=== PATIENT | male | born 1945 | race African-American/Black ===

== ENCOUNTER 2020-09-15 17:37 | Emergency (ER) | payer MEDICARE, MEDICAID, SELFPAY ==
--- NOTE | ~2020-09-15 | CT_ITS ---
EXAMINATION: CT brain wo con DATE: 09/15/2020 19:04 INDICATION: Altered mental status. Confusion. TECHNIQUE: Computed tomography (CT) of the head was performed without intravenous contrast. The mA wa s adjusted according to patient size. Iterative reconstruction technique was employed. The dose-lengt h product was 1362.00 mGy-cm. COMPARISON: Head CT 09/15/2019 FINDINGS: Motion artifact is noted. There are old infarcts in the bilateral thalami and left basal ga nglia. There are scattered areas of low attenuation in the cerebral white matter. There is no intracr anial hemorrhage, acute infarction, or abnormal intracranial mass lesion. The ventricles are normal i n size. The orbits are normal. There is mild mucosal thickening in the ethmoid sinuses. The mastoid a ir cells are normal. IMPRESSION: 1. 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 2. Stable extensive nonspecific cerebral white matter disease, which likely represents chronic small vessel ischemic disease. Reviewed, dictated and finalized at location A. RAISER IMPRESSION: 1. 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 2. Stable extensive nonspecific cerebral white matter disease, which likely rep resents chronic small vessel ischemic disease.
--- NOTE | ~2020-09-15 | XR_ITS ---
EXAMINATION: XR chest 2V DATE: 09/15/2020 19:11 INDICATION: Fever. Transient alteration of awareness. TECHNIQUE: Frontal and lateral views of the chest were obtained on 3 radiographs. COMPARISON: Chest single view 09/15/2019 FINDINGS: There is worsened elevation of right hemidiaphragm. No pneumonia, pleural effusion, or pneu mothorax. The heart size is normal. There are changes of anterior and posterior fusion procedures in cervical spine. IMPRESSION: 1. Worsened elevation of right hemidiaphragm. Reviewed, dictated and finalized at location A. COVERS TRIMMER
--- NOTE | ~2020-09-15 | CT_ITS ---
EXAMINATION: CT abdomen pelvis wo con DATE: 09/15/2020 20:44 INDICATION: Loss of appetite. TECHNIQUE: Computed tomography (CT) of the abdomen and pelvis was performed without intravenous contr ast. Automated exposure control and iterative reconstruction technique were employed. The dose-length product was 805.60 mGy-cm. COMPARISON: None. FINDINGS: The visualized portions of the lung bases demonstrate mild atelectasis and chronic lung dis ease. No pleural effusion. The heart size is normal. There are coronary artery calcifications. No per icardial effusion. Calcified right hilar lymph nodes are consistent with old granulomatous disease. T he liver, spleen, gallbladder, pancreas, adrenal glands, and kidneys are normal. There is no urolithi asis. Stool distends the rectum. There is diverticulosis of the colon without evidence of diverticuli tis. There is a moderate volume of stool in the colon. The appendix is normal. There is mild bilatera l gynecomastia. There are no pathologically enlarged lymph nodes. There is no free intraperitoneal fl uid. There is mild thoracolumbar spondylosis. IMPRESSION: 1. Stool distends the rectum. Reviewed, dictated and finalized at location A. RVISOR PIG MACHINE
[2020-09-15 17:54] VITALS: BP 146/98; PULSE 117; RESP 18; TEMP 37.6; O2SAT 100
--- NOTE | 2020-09-15 18:05 | ECG_ITS ---
Measurements Intervals [place] Rate: 102 P: -9 NE: 156 QRS: -28 QRSD: 82 T: 2 QT: 337 QTc: 441 Interpretive Statements SINUS TACHYCARDIA ANTERIOR INFARCT, AGE INDETERMINATE INFERIOR INFARCT, AGE INDETERMINATE BASELINE ARTIFACT- I, II, III, AVR, AVF, V3 ABNORMAL ECG Electronically Signed On 09-15-2020 20:04:40 FLIGHT ENGINEER HELICOPTER by Loyd Albarran D.O.
--- NOTE | 2020-09-15 18:05 | ED.AMS ---
HPI - Altered Mental Status General Chief Complaint: Altered Mental Status Stated Complaint: AMS Time Seen by Provider: 09/15/20 17:46 Source: EMS Mode of arrival: EMS Limitations: dementia History of Present Illness HPI narrative: Patient is a 75-year-old male with a history of dementia who presents for evaluation of worsened mentation from baseline. Patient comes from [facility] where the nighttime nurse felt that he was more confused from baseline. Patient is typically alert and oriented to person and place, tonight he was not even oriented to person. Unknown if the patient was altered like this for dayshift team per the EMS crew. Patient was transported to our facility, basically repeating anything the EMS crew said that the patient. He cannot provide any history. Patient currently is awake, alert and oriented to person, place in the room. He can identify the month, the year, that he is in [facility]. He can state his name. No focal deficits on exam. Related Data Home Medications Medication Instructions Recorded Confirmed Artificial Tears (PF) 1 drp OPHTHALMIC (EYE) Q6H PRN 09/15/19 09/15/19 acetaminophen 325 mg PO Q6H PRN 09/15/19 09/15/19 amlodipine 5 mg PO DAILY 09/15/19 09/15/19 aspirin 81 mg PO DAILY 09/15/19 09/15/19 glipizide 5 mg PO DAILY 09/15/19 09/15/19 ibuprofen 600 mg PO TID PRN 09/15/19 09/15/19 lisinopril 20 mg PO DAILY 09/15/19 09/15/19 lorazepam 1 mg PO DAILY 09/15/19 09/15/19 metoprolol succinate 50 mg PO DAILY 09/15/19 09/15/19 rosuvastatin 10 mg PO DAILY 09/15/19 09/15/19 sertraline 50 mg PO DAILY 09/15/19 09/15/19 trazodone 75 mg PO QPM 09/15/19 09/15/19 cholecalciferol (vitamin D3) 1,250 mcg PO WEEKLY 09/15/20 Allergies Allergy/AdvReac Type Severity Reaction Status Date / Time Iodine and Iodide Containing Allergy Unknown Unknown Verified 09/15/20 18:34 Produc Sulfa (Sulfonamide Allergy Unknown Unknown Verified 09/15/20 18:34 Antibiotics) atorvastatin [From Lipitor] Allergy Unknown Verified 09/15/20 18:34 shellfish derived Allergy Unknown Verified 09/15/20 18:34 simvastatin Allergy Unknown Verified 09/15/20 18:34 IV Dye Allergy Unknown Uncoded 09/15/19 00:08 Review of Systems Review of Systems: ROS unobtainable: Yes unobtainable due to mental status PMFSH Past Medical History Medical History (Updated 09/15/20 @ 21:04 by Hermelinda Bowman MD) Depression Diabetes HLD (hyperlipidemia) HTN (hypertension) TIA (transient ischemic attack) Family History Family History (Updated 09/15/19 @ 04:47 by Amy White RN) Other Unknown family medical history Social History Social History Smoking status: Unknown if ever smoked Alcohol intake: unknown Substance use: unknown Substance use type: unknown Gender identity (if verbalized by the patient): Male Spiritual care concerns: No Exam Narrative: Exam Narrative: GENERAL: Awake, alert HEAD: Normocephalic, atraumatic. EYES: PERRLA and EOMI. ENT: Nares clear, no rhinorrhea or epistaxis. Mucous membranes moist. NECK: Supple. CHEST: No respiratory distress, breathing even and non labored HEART: Regular rate, sinus rhythm ABDOMEN:Non distended, non tender EXTREMITIES: Normal range of motion. No edema. SKIN: Warm, dry, no rash. NEURO:No focal deficits. Alert and oriented x2 which is the patient's baseline. EOMs intact without nystagmus. No facial droop/asymmetry noted bilaterally. Grimace intact. Intact sensation in face. Hearing intact bilaterally. Shoulder shrug intact. Strength 5/5 bilateral upper extremities. Strength 5/5 bilateral lower extremities. Reflexes 2+ patellar. Ambulatory exam deferred. Course Vital Signs Vital signs: Vital Signs Temperature 37.6 C 09/15/20 17:54 Pulse Rate 117 H 09/15/20 17:54 Respiratory Rate 18 09/15/20 17:54 Blood Pressure 146/98 H 09/15/20 17:54 Pulse Oximetry 100 09/15/20
[2020-09-15 18:26] LABS: Basophils Percent Auto 0.2 % (0.2-1.2); Eosinophils Absolute Auto 0.1 K/mm3 (0-0.3); Eosinophils Percent Auto 0.6 % (0-4.4); Hematocrit 39.5 % (42.0-52.0); Hemoglobin 13.1 g/dL (14.0-18.0); Immature Granulocyte Absolute 0.02 K/mm3 (0.00-0.031); Immature Granulocyte Percent A 0.2 % (0-0.5); Lymphocytes Absolute Auto 2.45 K/mm3 (0.9-3.2); Mean Corpuscular HGB Conc 33.2 g/dl (32-36); Mean Corpuscular Hemoglobin 28.2 pg (26-34); Mean Corpuscular Volume 85.1 fl (80-100); Mean Platelet Volume 10.2 fl (7.4-10.4); Neutrophils Absolute Auto 5.6 K/mm3 (1.3-6.7); Platelet Count Result 211 k/mm3 (150-375); Red Blood Count 4.64 M/mm3 (4.6-6.20); Red Cell Distribution Width 13.6 % (11.5-14.5); White Blood Count 9.1 K/mm3 (4.5-10.0)
[2020-09-15] MEDS: SODIUM CHLORIDE 0.9% IV 1,000 ML 999 ML IV CONT (18:26)
[2020-09-15 18:36] LABS: INR 1.1; Lactic Acid Reflex 1.9 mmol/L (0.7-2.1); Prothrombin Time 14.3 Seconds (11.1-14.7)
[2020-09-15 18:37] LABS: Ammonia < 9 umol/L (9-30); Partial Thromboplastin Time 27.3 SECONDS (22.3-36.8)
[2020-09-15 18:38] LABS: Alveolar/Arterial O2 Gradient 40.6 mmHg; Base Excess ABG 0.3 mEq/l (+/-2.0); Fractional Inspired Oxygen 21 %; HCO3 ABG 24.9 mEq/l (22.0-26.0); Oxygen Content ABG 17.3 %vol (16.0-22.0); Oxygen Saturation ABG 91.4 % (95.0-100.0); PCO2 ABG 40.5 mmHg (35.0-45.0); PO2 ABG 60.6 mmHg (80.0-100.0); PO2 FiO2 Ratio Arterial Blood 2.89 %; Total Hemoglobin 13.5 g/dL (12.0-18.0); pH ABG 7.407 (7.350-7.450)
[2020-09-15 18:39] LABS: Device ROOM AIR; Site Drawn LEFT BRACHIAL
[2020-09-15 19:04] LABS: Alanine Aminotransferase 19 U/L (4-50); Albumin Level 4.2 g/dL (3.5-5.1); Alkaline Phosphatase 59 U/L (38-126); Anion Gap 10 mmol/L (8-16); Aspartate Amino Transferase 46 U/L (17-59); Bilirubin,Total 0.8 mg/dL (0.2-1.3); Blood Urea Nitrogen 19 mg/dL (9-20); Calcium 9.6 mg/dL (8.4-10.2); Carbon Dioxide 26 mmol/L (22-30); Chloride 104 mmol/L (98-107); Estimated CRCL calculation 51 ml/min; Estimated Glomerular Filt Rate > 60; Glucose 215 mg/dL (75-110); Potassium 4.2 mmol/L (3.4-5.0); Sodium 140 mmol/L (137-145)
[2020-09-15 19:10] LABS: Troponin I < 0.012 ng/mL (0.000-0.034)
[2020-09-15 19:35] VITALS: BP 139/92; PULSE 110; O2SAT 100
[2020-09-15 19:37] LABS: Add Urine Microscopic? YES; Appearance Urine Clear (Clear); Bilirubin Urine Negative (Negative); Blood Urine 3+ (Negative); Color Urine Yellow (Yellow); Glucose Urine UA Negative (Negative); Ketones Urine Trace mg/dL (Negative); Leukocyte Esterase Ur Trace LEU/UL (Negative); Nitrate Urine Negative (Negative); Protein Urine 1+ mg/dL (Negative); RBC Urine >75 /hpf (0-2); Specific Grav Ur 1.025 (1.001-1.035); Squamous Epithelial Cell Urine Rare /hpf (Few)
[2020-09-15 19:54] LABS: Amphetamine Screen Urine Negative (Negative); Barbiturate Screen Urine Negative (Negative); Benzodiazepines Screen Urine Negative (Negative); Cannabinoid Screen Urine Negative (Negative); Cocaine Screen Urine Negative (Negative); Methadone Screen Urine Negative (Negative); Opiate Screen Urine Negative (Negative); Phencyclidine Screen Urine Negative (Negative)
[2020-09-15 20:30] VITALS: BP 126/91; PULSE 101
--- NOTE | 2020-09-15 22:58 | PC.NURSE ---
multiple attempts to call report to anabel
[2020-09-15 23:13] VITALS: BP 139/95; PULSE 82; RESP 19; O2SAT 99
[2020-09-16 00:45] VITALS: BP 128/93; PULSE 64; RESP 15; O2SAT 93
[2020-09-16 02:30] VITALS: BP 137/94; PULSE 71; RESP 16; O2SAT 99
== END 2020-09-16 02:33 ==
PROVIDERS: Emergency Provider Emergency Medicine; PCP Internal Medicine
DX: R63.8 Other symptoms and signs concerning food and fluid intake (principal); K59.01 Slow transit constipation; E11.9 Type 2 diabetes mellitus without complications; E78.5 Hyperlipidemia, unspecified; I10 Essential (primary) hypertension; Z86.73 Personal history of transient ischemic attack (TIA), and cerebral infarction without residual deficits; F32.9 Major depressive disorder, single episode, unspecified; Z79.84 Long term (current) use of oral hypoglycemic drugs; Z79.82 Long term (current) use of aspirin; R00.0 Tachycardia, unspecified; R94.31 Abnormal electrocardiogram [ECG] [EKG]; R90.82 White matter disease, unspecified; F03.90 Unspecified dementia, unspecified severity, without behavioral disturbance, psychotic disturbance, mood disturbance, and anxiety; Z79.899 Other long term (current) drug therapy; R31.9 Hematuria, unspecified
CPT/HCPCS: 36415; 36600; 51701; 70450; 71046; 74176; 80053; 80307; 81001; 82140; 82805; 83605; 84443; 84484; 85025; 85610; 85730; 87040; 93005; 99284; J7030

== ENCOUNTER 2020-10-29 16:11 | Observation (INO) | payer MEDICARE, MEDICAID, SELFPAY ==
[2020-10-29] VITALS (23 sets, daily range): BP systolic 115–137; BP diastolic 64–88; PULSE 54–97; RESP 13–24; TEMP 36.7–37.6; O2SAT 98–100; BMI 20.6
--- NOTE | ~2020-10-29 | CT_ITS ---
EXAMINATION: CT brain wo con DATE: 10/29/2020 19:41 INDICATION: Confusion. TECHNIQUE: Computed tomography (CT) of the head was performed without intravenous contrast. The mA wa s adjusted according to patient size. Iterative reconstruction technique was employed. The dose-lengt h product was 908.00 mGy-cm. COMPARISON: Head CT 09/15/2020 FINDINGS: Motion artifact is noted. There are old lacunar infarcts in the bilateral basal ganglia and thalami. There are scattered areas of low attenuation in the cerebral white matter. There is no intr acranial hemorrhage, acute infarction, or abnormal intracranial mass lesion. The ventricles are crow l in size. There is mild mucosal thickening in the ethmoid sinuses. The mastoid air cells are normal. The orbits are normal. IMPRESSION: 1. Old lacunar infarcts in the bilateral basal ganglia and thalami. 2. Stable extensive nonspecific cerebral white matter disease, which likely represents chronic small vessel ischemic disease. Reviewed, dictated and finalized at location A. ILE STYLIST IMPRESSION: 1. Old lacunar infarcts in the bilateral basal ganglia and thalami. 2. Stable extensive nonspecific cerebral white matter disease, which likely rep resents chronic small vessel ischemic disease.
--- NOTE | ~2020-10-29 | XR_ITS ---
EXAMINATION: XR chest 1V portable DATE: 10/29/2020 17:31 INDICATION: Transient alteration of awareness. COVID-19 positive. TECHNIQUE: A single frontal view of the chest was obtained. COMPARISON: Chest 2 views 09/15/2020, CT abdomen and pelvis 09/15/2020 FINDINGS: The lung volumes are small. There is chronic mild relative elevation of right hemidiaphragm . No pneumonia, pleural effusion, or pneumothorax. The heart size is normal. There are changes of ant erior and posterior fusion procedures in cervical spine. IMPRESSION: 1. No acute cardiopulmonary disease. Reviewed, dictated and finalized at location A. SPINNER
--- NOTE | ~2020-10-29 | NM_ITS ---
EXAMINATION: NM pulmonary perfusion EXAM DATE: 10/30/2020 11:52 INDICATION: COVID pneumonia. Transient alteration of awareness. TECHNIQUE: A perfusion lung scan was performed. The patient was injected with 4.8 mCi technetium 99m MAA and imaged. Modified PIOPED 2 criteria used for interpretation of perfusion without ventilation study (recent chest x-ray instead for comparison). Correlation is made to chest x-ray 10/29/2020. FINDINGS: Minimally heterogeneous perfusion without focal segmental defects. Low probability pulmonar y embolism. IMPRESSION: Low probability pulmonary embolus. Reviewed, dictated and finalized at location B. SINKER
--- NOTE | 2020-10-29 16:21 | ECG_ITS ---
Measurements Intervals [place] Rate: 88 P: 21 [place]: 172 QRS: -47 QRSD: 73 T: 1 QT: 329 QTc: 398 Interpretive Statements SINUS RHYTHM CONSIDER ANTERIOR INFARCT, AGE INDETERMINATE INFERIOR INFARCT, AGE INDETERMINATE BASELINE ARTIFACT- I, II, AVR, AVL, AVF, V1-V6 ABNORMAL ECG Electronically Signed On 10-29-2020 16:27:57 POWER PLANT ENGINEER by Loyd Albarran D.O.
[2020-10-29 16:39] LABS: Basophils Percent Auto 0.4 % (0.2-1.2); Hematocrit 39.5 % (42.0-52.0); Hemoglobin 12.9 g/dL (14.0-18.0); Immature Granulocyte Absolute 0.01 K/mm3 (0.00-0.031); Immature Granulocyte Percent A 0.2 % (0-0.5); Lymphocytes Absolute Auto 2.13 K/mm3 (0.9-3.2); Mean Corpuscular HGB Conc 32.7 g/dl (32-36); Mean Corpuscular Hemoglobin 27.4 pg (26-34); Mean Platelet Volume 9.9 fl (7.4-10.4); Monocytes Absolute Auto 0.8 K/mm3 (0.1-0.6); Monocytes Percent Auto 14.8 % (2.6-8.5); Neutrophils Absolute Auto 2.6 K/mm3 (1.3-6.7); Neutrophils Percent Auto 46.6 % (45.5-73.1); Platelet Count Result 170 k/mm3 (150-375); Red Cell Distribution Width 13.8 % (11.5-14.5); White Blood Count 5.6 K/mm3 (4.5-10.0)
--- NOTE | 2020-10-29 16:43 | ED.URI ---
HPI - URI/Sore Throat General Chief Complaint: Upper Respiratory Infection Stated Complaint: covid + 1.9, low RA pul ox Time Seen by Provider: 10/29/20 16:16 Source: EMS, RN notes reviewed and old records reviewed Mode of arrival: EMS Limitations: clinical condition History of Present Illness HPI Narrative: Patient is 75-year-old -[place] diabetic male who presents from residential for hypoxemia diagnosed with Covid positive test in the last day patient is nonverbal on arrival does not shake his head patient with history of dementia and confusion at baseline patient on exam will not follow commands does not answer questions does shake his head yes and no unable to obtain history from the patient Related Data Home Medications Medication Instructions Recorded Confirmed Artificial Tears (PF) 1 drp OPHTHALMIC (EYE) Q6H PRN 09/15/19 10/29/20 acetaminophen 325 mg PO Q6H PRN 09/15/19 10/29/20 amlodipine 5 mg PO DAILY 09/15/19 10/29/20 aspirin 81 mg PO DAILY 09/15/19 10/29/20 glipizide 5 mg PO DAILY 09/15/19 10/29/20 ibuprofen 600 mg PO TID PRN 09/15/19 10/29/20 lisinopril 20 mg PO DAILY 09/15/19 10/29/20 lorazepam 1 mg PO DAILY 09/15/19 10/29/20 metoprolol succinate 50 mg PO DAILY 09/15/19 10/29/20 rosuvastatin 10 mg PO DAILY 09/15/19 10/29/20 sertraline 50 mg PO DAILY 09/15/19 10/29/20 trazodone 75 mg PO QPM 09/15/19 10/29/20 cholecalciferol (vitamin D3) 1,250 mcg PO WEEKLY 09/15/20 10/29/20 Allergies Allergy/AdvReac Type Severity Reaction Status Date / Time Iodine and Iodide Containing Allergy Unknown Unknown Verified 10/29/20 16:40 Produc Sulfa (Sulfonamide Allergy Unknown Unknown Verified 10/29/20 16:40 Antibiotics) atorvastatin [From Lipitor] Allergy Unknown Verified 10/29/20 16:40 shellfish derived Allergy Unknown Verified 10/29/20 16:40 simvastatin Allergy Unknown Verified 10/29/20 16:40 IV Dye Allergy Unknown Uncoded 10/29/20 16:40 Review of Systems Review of Systems: ROS unobtainable: Yes unobtainable due to medical condition PMFSH Past Medical History Medical History (Updated 10/29/20 @ 19:08 by Stanton Murillo PA-C) Depression Diabetes HLD (hyperlipidemia) HTN (hypertension) TIA (transient ischemic attack) Family History Family History (Updated 09/15/19 @ 04:47 by Amy White RN) Other Unknown family medical history Social History Social History Smoking status: Unknown if ever smoked Alcohol intake: unknown Substance use: unknown Substance use type: unknown Gender identity (if verbalized by the patient): Male Spiritual care concerns: No Exam Narrative: Exam Narrative: GENERAL: Ill-appearing, well-nourished, and in no acute distress. HEAD: Normocephalic, atraumatic. EYES: PERRLA and EOMI. ENT: Nares clear, no rhinorrhea or epistaxis. Mucous membranes moist. CHEST: Diminished on auscultation. No respiratory distress. Coarse breath sounds in the lung roldan HEART: Regular rate and rhythm. No murmur heard. Normal peripheral pulses. ABDOMEN: Soft, nontender, nondistended EXTREMITIES: Normal extremities on exam no edema SKIN: Warm, dry, no rash. NEURO: Patient nonverbal nods his head yes and no to questions does appear to be confused does not speak PSYCH: Normal mood and affect. Course Course Emergency Course: Patient evaluated in the emergency department for his hypoxemia seems to be tolerating well on his 2 L nasal cannula no pneumonia or other high risks findings in his evaluation patient will be brought into the hospital for further evaluation of his hypoxemia and recent COVID-19 diagnosis Consultations Consultation #1: Discussed case with hospitalist who is agreed to accept the patient Date: 10/29/20 Time: 19:07 Vital Signs Vital signs: Vital Signs Temperature 98.4 F 10/29/20 16:11 Pulse Rate 90 10/29/20 16:11 Respiratory Rate 22 H 10/29/20 16:11 Blood Pressure 129/79 10/29/20 1
[2020-10-29 16:47] LABS: Lactic Acid Reflex 1.5 mmol/L (0.7-2.1); Lipase 272 U/L (23-300)
[2020-10-29 16:48] LABS: Alveolar/Arterial O2 Gradient 67.2 mmHg; Carboxyhemoglobin 0.2 % THb (0-2.0); Fractional Inspired Oxygen 28 %; HCO3 ABG 25.3 mEq/l (22.0-26.0); Methemoglobin ABG 0.3 %THb (0-1.5); Oxygen Content ABG 18.6 %vol (16.0-22.0); Oxygen Saturation ABG 96.7 % (95.0-100.0); Oxyhemoglobin 96.1 % THb (90.0-100.0); PCO2 ABG 39.5 mmHg (35.0-45.0); PO2 ABG 85.8 mmHg (80.0-100.0); PO2 FiO2 Ratio Arterial Blood 3.06 %; Reduced Hemoglobin 3.4 %THb (0-5.0); Total Hemoglobin 13.7 g/dL (12.0-18.0); pH ABG 7.425 (7.350-7.450)
[2020-10-29 16:48] LABS: Alanine Aminotransferase 19 U/L (4-50); Alkaline Phosphatase 49 U/L (38-126); Anion Gap 6 mmol/L (8-16); Aspartate Amino Transferase 36 U/L (17-59); Bilirubin,Total 0.4 mg/dL (0.2-1.3); Blood Urea Nitrogen 20 mg/dL (9-20); Calcium 8.7 mg/dL (8.4-10.2); Carbon Dioxide 31 mmol/L (22-30); Chloride 98 mmol/L (98-107); Estimated Glomerular Filt Rate > 60; Glucose 111 mg/dL (75-110); Potassium 4.5 mmol/L (3.4-5.0); Prothrombin Time 14.1 Seconds (11.1-14.7); Sodium 135 mmol/L (137-145)
[2020-10-29 16:49] LABS: Partial Thromboplastin Time 33.7 SECONDS (22.3-36.8)
[2020-10-29 16:49] LABS: Device NASAL CANNULA; Site Drawn LEFT BRACHIAL
[2020-10-29 16:56] LABS: CRP 2.4 mg/dL (<1.0)
[2020-10-29 17:20] LABS: Add Urine Microscopic? YES; Appearance Urine Clear (Clear); Bilirubin Urine Negative (Negative); Blood Urine 2+ (Negative); Color Urine Yellow (Yellow); Glucose Urine UA Negative (Negative); Ketones Urine Negative (Negative); Leukocyte Esterase Ur Negative LEU/UL (Negative); Mucus Urine Rare /lpf; Nitrate Urine Negative (Negative); Protein Urine 1+ mg/dL (Negative); RBC Urine 51-75 /hpf (0-2); Specific Grav Ur 1.024 (1.001-1.035); Squamous Epithelial Cell Urine Occasional /hpf (Few); Urobilinogen Urine Negative mg/dL (<2.0); WBC Urine 0-3 /hpf
[2020-10-29 19:01] LABS: D Dimer 1.28 ug/mL (<0.48)
[2020-10-29] MEDS: ENOXAPARIN 80 MG/0.8 ML SYRINGE 75 MG SUB-Q (19:58)
--- NOTE | 2020-10-29 20:16 | PC.NURSE ---
Patient's daughter calls to get update on her father. This nurse informs her that the patient is being admitted.
--- NOTE | 2020-10-29 21:15 | ADMGEN ---
AT 2030, this patient, Carroll Roy, was admitted to [address] [place] [address] Room 324-01 VIA STRETCHER FROM THE ED. Patient/family oriented to hospital policies and general routines including ID bracelet, bed and alarms, visiting hours, pain management, procedures, bathroom and other care routines, personal items, smoking policy, room service/diet, and visiting hours. PT IS NONVERBAL SHAKES HIS HEAD YES AND NO FOR QUESTIONS. Information on how to activate the Rapid Response Team has been discussed. Patient/Family are encouraged to report perceived risks to care and to ask questions if they do not understand what they are told or what they should do.
[2020-10-29] MEDS: LACTATED RINGERS 1,000 ML 75 ML IV CONT (21:35)
[2020-10-30] VITALS (9 sets, daily range): BP systolic 128–144; BP diastolic 69–92; PULSE 54–114; RESP 18–20; TEMP 36.6–37.7; O2SAT 95–100
[2020-10-30] MEDS: FAMOTIDINE 20 MG/2 ML VIAL IV PUSH ×3 (01:01→21:01)
[2020-10-30 01:10] LABS: Glucose Point of Care 104 (65-105)
[2020-10-30 06:44] LABS: Basophils Percent Auto 0.4 % (0.2-1.2); Hematocrit 40.6 % (42.0-52.0); Hemoglobin 13.2 g/dL (14.0-18.0); Immature Granulocyte Absolute 0.01 K/mm3 (0.00-0.031); Immature Granulocyte Percent A 0.2 % (0-0.5); Lymphocytes Absolute Auto 2.06 K/mm3 (0.9-3.2); Lymphocytes Percent Auto 39.1 % (18.3-44.2); Mean Corpuscular HGB Conc 32.5 g/dl (32-36); Mean Corpuscular Hemoglobin 27.8 pg (26-34); Mean Corpuscular Volume 85.5 fl (80-100); Mean Platelet Volume 10.6 fl (7.4-10.4); Monocytes Absolute Auto 0.9 K/mm3 (0.1-0.6); Monocytes Percent Auto 16.3 % (2.6-8.5); Neutrophils Absolute Auto 2.3 K/mm3 (1.3-6.7); Platelet Count Result 157 k/mm3 (150-375); Red Blood Count 4.75 M/mm3 (4.6-6.20); Red Cell Distribution Width 13.9 % (11.5-14.5); White Blood Count 5.3 K/mm3 (4.5-10.0)
[2020-10-30 07:11] LABS: Anion Gap 6 mmol/L (8-16); Blood Urea Nitrogen 18 mg/dL (9-20); Calcium 8.4 mg/dL (8.4-10.2); Carbon Dioxide 25 mmol/L (22-30); Chloride 103 mmol/L (98-107); Estimated CRCL calculation 50 ml/min; Estimated Glomerular Filt Rate > 60; Glucose 81 mg/dL (75-110); Potassium 4.5 mmol/L (3.4-5.0); Sodium 134 mmol/L (137-145)
[2020-10-30 08:28] LABS: Glucose Point of Care 87 (65-105)
[2020-10-30] MEDS: ENOXAPARIN 80 MG/0.8 ML SYRINGE 75 MG SUB-Q ×2 (10:36→21:01)
[2020-10-30 12:15] LABS: Glucose Point of Care 103 (65-105)
--- NOTE | 2020-10-30 14:45 | PM.IMHP ---
H&P: HPI History of Present Illness Date/Time: 10/30/20 14:45 Chief Complaint: HYpoxemia Narrative: Carroll Roy is a 75 year old male male from [facility] for hypoxemia diagnosed with Covid positive on oxygen doing well. Answering questions on admission was not able to do that. poor historian but pleasant and alert history of dementia. CT shows - Old lacunar infarcts in the bilateral basal ganglia and thalami. 2. Stable extensive nonspecific cerebral white matter disease, which likely represents chronic small vessel ischemic disease. CXR NL. Continue to watch for hypoxia today. Review of Systems Review of Systems: All systems reviewed & are unremarkable except as noted in HPI and below PMFSH Past Medical History Medical History Depression Diabetes HLD (hyperlipidemia) HTN (hypertension) TIA (transient ischemic attack) Family History Family History Other Unknown family medical history Social History Social History Smoking status: Unknown if ever smoked Alcohol intake: unknown Substance use: unknown Substance use type: unknown Gender identity (if verbalized by the patient): Male Spiritual care concerns: No Meds Home Medications and Allergies Home Medications Medication Instructions Recorded Confirmed Type Artificial Tears (PF) 1 drp OPHTHALMIC (EYE) Q6H PRN 09/15/19 10/30/20 History acetaminophen 325 mg PO Q6H PRN 09/15/19 10/30/20 History amlodipine 5 mg PO DAILY 09/15/19 10/30/20 History aspirin 81 mg PO DAILY 09/15/19 10/30/20 History glipizide 5 mg PO DAILY 09/15/19 10/30/20 History ibuprofen 600 mg PO TID PRN 09/15/19 10/30/20 History lisinopril 20 mg PO DAILY 09/15/19 10/30/20 History lorazepam 1 mg PO DAILY 09/15/19 10/30/20 History metoprolol succinate 50 mg PO DAILY 09/15/19 10/30/20 History rosuvastatin 10 mg PO DAILY 09/15/19 10/30/20 History sertraline 50 mg PO DAILY 09/15/19 10/30/20 History trazodone 75 mg PO QPM 09/15/19 10/30/20 History cholecalciferol (vitamin D3) 1,250 mcg PO WEEKLY 09/15/20 10/30/20 History Allergies Allergy/AdvReac Type Severity Reaction Status Date / Time Iodine and Iodide Containing Allergy Unknown Unknown Verified 10/29/20 21:17 Produc Sulfa (Sulfonamide Allergy Unknown Unknown Verified 10/29/20 21:17 Antibiotics) atorvastatin [From Lipitor] Allergy Unknown Verified 10/29/20 21:17 shellfish derived Allergy Unknown Verified 10/29/20 21:17 simvastatin Allergy Unknown Verified 10/29/20 21:17 IV Dye Allergy Unknown Uncoded 10/29/20 21:17 Vital Signs Vital Signs - 24 hr 10/29/20 16:11 10/29/20 16:40 10/29/20 16:45 Temperature 36.9 C Pulse Rate 90 87 93 Respiratory Rate 22 H 23 H 17 Blood Pressure 129/79 137/88 Pulse Oximetry 100 98 10/29/20 16:46 10/29/20 16:47 10/29/20 17:00 Temperature Pulse Rate 89 89 97 Respiratory Rate 24 H 18 22 H Blood Pressure 125/85 Pulse Oximetry 10/29/20 17:15 10/29/20 17:30 10/29/20 17:56 Temperature Pulse Rate 76 78 70 Respiratory Rate 18 18 16 Blood Pressure Pulse Oximetry 10/29/20 18:11 10/29/20 18:27 10/29/20 18:31 Temperature Pulse Rate 80 73 73 Respiratory Rate 16 13 17 Blood Pressure 121/68 Pulse Oximetry 100 99 99 10/29/20 18:32 10/29/20 18:45 10/29/20 18:48 Temperature Pulse Rate 69 71 65 Respiratory Rate 17 20 15 Blood Pressure 121/68 Pulse Oximetry 99 100 98 10/29/20 19:00 10/29/20 19:01 10/29/20 19:15 Temperature Pulse Rate 75 71 81 Respiratory Rate 18 14 18 Blood Pressure 115/64 Pulse Oximetry 99 99 98 10/29/20 19:39 10/29/20 19:45 10/29/20 19:46 Temperature Pulse Rate 78 76 96 Respiratory Rate 21 H 18 Blood Pressure Pulse Oximetry 98 100 10/29/20 20:17 10/29/20 20:10/30/20 00:00 Temperature 36.7
[2020-10-30] MEDS: traZODone HCL 25 MG TABLET 75 MG PO (17:20)
[2020-10-30 17:43] LABS: Glucose Point of Care 127 (65-105)
[2020-10-30] MEDS: ACETAMINOPHEN 325 MG TABLET PO (17:43)
[2020-10-30] MEDS: LACTATED RINGERS 1,000 ML 75 ML IV CONT (17:46)
[2020-10-31] VITALS (7 sets, daily range): BP systolic 111–145; BP diastolic 71–94; PULSE 73–96; RESP 18–20; TEMP 36.7–37.2; O2SAT 95–100
[2020-10-31 08:20] LABS: Glucose Point of Care 90 (65-105)
[2020-10-31] MEDS: SERTRALINE HCL 50 MG TABLET PO (09:20)
[2020-10-31] MEDS: amLODIPine BESYLATE 5 MG TABLET PO (09:20)
[2020-10-31] MEDS: ENOXAPARIN 80 MG/0.8 ML SYRINGE 75 MG SUB-Q (09:20)
[2020-10-31] MEDS: FAMOTIDINE 20 MG/2 ML VIAL IV PUSH (09:20)
[2020-10-31] MEDS: lisinopriL 20 MG TABLET PO (09:20)
[2020-10-31] MEDS: LORazepam (*CRX) 1 MG TABLET PO (09:20)
[2020-10-31] MEDS: ROSUVASTATIN 10 MG TABLET PO (09:20)
[2020-10-31] MEDS: METOPROLOL SUCCINATE EXT REL 50 MG TABCR PO (09:21)
[2020-10-31] MEDS: glipiZIDE 5 MG TABLET PO (09:21)
[2020-10-31] MEDS: ASPIRIN 81 MG CHEWABLE TABLET PO (09:22)
[2020-10-31] MEDS: LACTATED RINGERS 1,000 ML 75 ML IV CONT (10:37)
[2020-10-31] MEDS: DEXTROSE 50% 25 GM/50 ML SYRINGE IV PUSH (12:15)
[2020-10-31 12:35] LABS: Glucose Point of Care 65 (65-105)
[2020-10-31 12:42] LABS: Glucose Point of Care 268 (65-105)
--- NOTE | 2020-10-31 13:25 | PM.DS ---
DS: Admitting Diagnosis Admitting Diagnosis Admitting Diagnosis: HYPOXEMIA DS: Discharge Diagnosis Discharge Diagnosis (1) Hypoxemia: Code(s): R09.02 - Hypoxemia Status: Acute Assessment and Plan: Continue to watch. Continue oxygen prn. Cxr is clear no need for ABX. (2) COVID-19: Code(s): U07.1 - COVID-19 Status: Acute Assessment and Plan: Recent diagnosis (3) Altered mental status: Qualifiers: Altered mental status type: delirium Qualified Code(s): R41.0 - Disorientation, unspecified Code(s): R41.82 - Altered mental status, unspecified Status: Resolved Assessment and Plan: Resolving (4) Delirium due to general medical condition: Code(s): F05 - Delirium due to known physiological condition Status: Acute Assessment and Plan: Chronic history CT head reviewed, CXR reviewed, UA reviewed. (5) HTN (hypertension): Code(s): I10 - Essential (primary) hypertension Status: Acute Assessment and Plan: Continue home BP medications (6) Diabetes: Code(s): E11.9 - Type 2 diabetes mellitus without complications Status: Acute Assessment and Plan: Continue home medications, accuchecks, SSI DS: Summary Hospital Course Hospital Course: Carroll Roy is a 75 year old male male from [facility] for hypoxemia diagnosed with Covid positive on oxygen doing well. Answering questions on admission was not able to do that. poor historian but pleasant and alert history of dementia. CT shows - Old lacunar infarcts in the bilateral basal ganglia and thalami. 2. Stable extensive nonspecific cerebral white matter disease, which likely represents chronic small vessel ischemic disease. CXR NL. Pt did well weaned off oxygen stable to discharge. Minor case of covid. Time Spent with Patient Time attestation: Total time spent providing and/or coordinating discharge services:40 minutes on day of dischrage Exam Const: General: other (frail older man pleasant alert history of dementia ) HENMT: Head: normocephalic Eyes: General: appearance normal, both eyes and all related structures Pupils: Equal, round and reactive pupils present Neck: Neck: supple Chest: Chest palpation & inspection: normal inspection of the chest Resp: Effort & Inspection: normal respiratory effort Auscultation: clear to auscultation bilaterally Cardio: Jugular venous distension: no JVD Rhythm: regular rhythm Heart sounds: S1 normal heart sound present and S2 normal heart sound present GI: Inspection: normal to inspection Auscultation: normal bowel sounds : General: Yes no CVA tenderness Back/Spine/Pelvis: Back: no CVA tenderness Skin: General skin exam: normal color and dry skin Neuro: Cranial nerves: Yes CN's II-XII intact bilaterally and Yes Equal, round and reactive pupils present Cognition (Neuro): normal cognition Speech: normal speech Motor exam (neuro): 5/5 motor strength present throughout Extrem: General: normal to inspection Psych: Appearance: grossly normal Mental Status: mental status grossly normal DS: Data Data Completed and Pending Labs on day of discharge: Labs from last 24 hours 10/31/20 10/31/20 10/31/20 12:33 12:10 08:12 POC Capillary Glucose 268 H 65 90 10/30/20 17:24 POC Capillary Glucose 127 H Preliminary micro results at discharge 10/29/20 16:50 Blood Culture - Preliminary Blood 10/29/20 16:48 Blood Culture - Preliminary Blood Discharge Plan Discharge Attending physician on discharge: Aura Lynn Consulting providers: [facility] ; Stanton Murillo ; Timur Trejo ; Loyd Albarran ; Ilia Jones V. Discharging Clinician: Aura Lynn Anticipated Discharge Date/Time: 10/31/20 13:24 Patient Disposition: SNF Activity: as tolerated Diet: diabetic Patient Instructions: Droplet Precautions (GEN), COV
== END 2020-10-31 14:18 ==
LOC: ANHED 19:08 → ANH3MEDSUR 20:04
PROVIDERS: Emergency Medicine Emergency Medical Services; Admitting Provider Internal Medicine; Emergency Provider Emergency Medicine; Visit Provider Family Medicine
DX: R09.02 Hypoxemia (principal); U07.1 COVID-19; R41.82 Altered mental status, unspecified; F03.90 Unspecified dementia, unspecified severity, without behavioral disturbance, psychotic disturbance, mood disturbance, and anxiety; I10 Essential (primary) hypertension; E78.5 Hyperlipidemia, unspecified; E11.9 Type 2 diabetes mellitus without complications; F32.9 Major depressive disorder, single episode, unspecified; Z86.73 Personal history of transient ischemic attack (TIA), and cerebral infarction without residual deficits; Z79.82 Long term (current) use of aspirin; Z79.84 Long term (current) use of oral hypoglycemic drugs
CPT/HCPCS: 36415; 36600; 51701; 70450; 71045; 78580; 80048; 80053; 81001; 82375; 82805; 83050; 83605; 83690; 85025; 85380; 85610; 85730; 86140; 87040; 93005; 96361; 96372; 96374; 96375; 96376; 99285; A9270; A9540; G0378; J0131; J1650; J7120

== ENCOUNTER 2020-11-03 23:21 | Inpatient (IN) | payer MEDICARE, MEDICAID, SELFPAY ==
--- NOTE | ~2020-11-03 | XR_ITS ---
EXAMINATION: XR chest 1V portable DATE: 11/03/2020 23:55 INDICATION: Hypoxia TECHNIQUE: frontal view of the chest was obtained. COMPARISON: Chest radiograph dated 10/29/2020 FINDINGS: Again seen are small lung volumes, particularly on the right where there is chronic asymmetric elevat ion of the right hemidiaphragm. New subtle airspace opacities in the right mid to upper and left mid and lower lung zones. Pulmonary vascular congestion without annette pulmonary edema. No pleural effusio n or pneumothorax. Cardiomegaly. Instrumented anterior and posterior spinal fusion in a lower cervica l spine. IMPRESSION: 1. New subtle bilateral airspace opacities which could represent atelectasis and/or pneumonia. 2. Cardiomegaly with pulmonary vascular congestion. Reviewed, dictated and finalized at location A. S SUPERVISOR IMPRESSION: 1. New subtle bilateral airspace opacities which could represent atelectasis an d/or pneumonia. 2. Cardiomegaly with pulmonary vascular congestion.
--- NOTE | ~2020-11-03 | CT_ITS ---
EXAMINATION: CT brain wo con DATE: 11/04/2020 02:04 INDICATION: Altered mental status TECHNIQUE: Computed tomography (CT) of the head was performed without intravenous contrast. The dose- length product was 681.00 mGy-cm. Automated exposure control and iterative reconstruction technique w ere employed. COMPARISON: CT dated 10/29/2020 FINDINGS: Generalized atrophy. No acute intracranial hemorrhage, infarction, mass or mass effect. No ventriculomegaly or midline shift. There are scattered severe periventricular and subcortical white m atter changes, most likely related to small vessel ischemic disease (microangiopathy). The limited by motion artifact. No depressed skull fractures. Paranasal sinuses are unremarkable. There is intracra nial atherosclerosis. IMPRESSION: 1. No acute intracranial abnormality. 2: Chronic age-related findings. Reviewed, dictated and finalized at location A. ERN GATER
--- NOTE | ~2020-11-03 | CT_ITS ---
EXAMINATION: CT brain wo con DATE: 11/08/2020 08:23 INDICATION: Confusion. TECHNIQUE: Computed tomography (CT) of the head was performed without intravenous contrast. The mA wa s adjusted according to patient size. Iterative reconstruction technique was employed. The dose-lengt h product was 681.00 mGy-cm. COMPARISON: Head CT 11/04/2020 FINDINGS: Motion artifact is noted. There are scattered areas of low attenuation in the cerebral whit e matter. There are old infarcts in the bilateral thalami and basal ganglia. There is no intracranial hemorrhage, acute infarction, or abnormal intracranial mass lesion. The ventricles are normal in siz e. There is mild mucosal thickening in the ethmoid sinuses. The orbits are normal. The mastoid air ce lls are normal. IMPRESSION: 1. Motion artifact moderately decreases sensitivity and specificity for infarct. 2. 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 3. Stable extensive nonspecific cerebral white matter disease, which likely represents chronic small vessel ischemic disease. Reviewed, dictated and finalized at location B. OPERATOR IMPRESSION: 1. Motion artifact moderately decreases sensitivity and specificity for infarct . 2. 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 3. Stable extensive nonspecific cerebral white matter disease, which likely rep resents chronic small vessel ischemic disease.
--- NOTE | ~2020-11-03 | CT_ITS ---
EXAMINATION: CT chest wo con DATE: 11/05/2020 14:45 INDICATION: Covid pneumonia, hypoxia, risk for aspiration TECHNIQUE: Computed tomography (CT) of the chest was performed without intravenous contrast. Addition al 3D reconstructions utilizing coronal maximum intensity projection (MIP) were performed. Automated exposure control and iterative reconstruction technique were employed. The dose-length product was 29 4.56 mGy-cm. COMPARISON: Chest radiograph dated 11/03/2020 FINDINGS: Small lung volumes particularly on the right where there is chronic elevation of the right hemidiaphr agm. Patchy regions of groundglass opacity and more dense consolidation involving all lobes of both l ungs most prominent in the bilateral upper and left lower lobes. Pattern would be consistent with COV ID pneumonia. No septal line thickening to suggest pulmonary edema. No pleural effusion or pneumothor ax. Heart size is normal. No pericardial effusion. Atherosclerotic coronary artery calcifications. Ca lcified mediastinal lymph node consistent with old granulomatous disease. Bilateral gynecomastia. Vis ualized upper abdomen is unremarkable. Partially visualized anterior and posterior spinal fusion with anterior plate and screw and bilateral vertical meghan and lateral mass screw fixation at C6-C7. Partia lly visualized chronic thick-walled loculated fluid collection posterior to the lower cervical spine measuring up to 6.7 x 3.4 similar in maximal dimensions on the cephalad-most image. No appreciable pr ogression of osteolysis with cortical destruction involving portion of the posterior elements of C6-T 2. IMPRESSION: 1. Small lung volumes with patchy bilateral airspace disease with appearance most consistent with COV ID pneumonia. 2. Chronic posterior paraspinal fluid collection with stable appearance of posterior erosive changes from C6-T2. Given the nearly 3 years of stability would favor a seroma and chronic pressure erosions over abscess and osteomyelitis. Reviewed, dictated and finalized at location A. ICK FOLLOWER IMPRESSION: 1. Small lung volumes with patchy bilateral airspace disease with appearance mo st consistent with COVID pneumonia. 2. Chronic posterior paraspinal fluid collection with stable appearance of post erior erosive changes from C6-T2. Given the nearly 3 years of stability would f avor a seroma and chronic pressure erosions over abscess and osteomyelitis.
[2020-11-03 23:23] VITALS: BP 123/77; PULSE 110; RESP 20; TEMP 38.7; O2SAT 89
--- NOTE | 2020-11-03 23:25 | ECG_ITS ---
Measurements Intervals [place] Rate: 112 P: 4 [place]: 147 QRS: -44 QRSD: 82 T: -10 QT: 326 QTc: 447 Interpretive Statements SINUS TACHYCARDIA POOR R WAVE PROGRESSION, ANTERIOR LEADS INFERIOR INFARCT, AGE INDETERMINATE BASELINE ARTIFACT- I, II, III, AVR, AVF ABNORMAL ECG Electronically Signed On 11-04-2020 8:05:06 RESUME WRITER by Loyd Albarran D.O.
[2020-11-03 23:37] VITALS: O2SAT 93
--- NOTE | 2020-11-03 23:38 | PC.NURSE ---
pt now speaking to this RN. he states his name is matt and hes hurting everywhere. pt unable to rate his pain at this time.
[2020-11-03] MEDS: SODIUM CHLORIDE 0.9% IV 1,000 ML 999 ML IV CONT (23:43)
[2020-11-03 23:46] LABS: Hematocrit 42.7 % (42.0-52.0); Hemoglobin 14.1 g/dL (14.0-18.0); Immature Granulocyte Absolute 0.02 K/mm3 (0.00-0.031); Immature Granulocyte Percent A 0.3 % (0-0.5); Lymphocytes Absolute Auto 1.57 K/mm3 (0.9-3.2); Mean Corpuscular Hemoglobin 27.8 pg (26-34); Mean Corpuscular Volume 84.1 fl (80-100); Mean Platelet Volume 10.3 fl (7.4-10.4); Monocytes Absolute Auto 0.8 K/mm3 (0.1-0.6); Monocytes Percent Auto 14.1 % (2.6-8.5); Neutrophils Absolute Auto 3.4 K/mm3 (1.3-6.7); Neutrophils Percent Auto 58.6 % (45.5-73.1); Platelet Count Result 165 k/mm3 (150-375); Red Blood Count 5.08 M/mm3 (4.6-6.20); Red Cell Distribution Width 13.8 % (11.5-14.5); White Blood Count 5.8 K/mm3 (4.5-10.0)
--- NOTE | 2020-11-03 23:51 | PC.NURSE ---
getting xray at this time
[2020-11-03 23:57] LABS: INR 0.9; Prothrombin Time 12.8 Seconds (11.1-14.7)
[2020-11-03 23:58] LABS: Partial Thromboplastin Time 32.1 SECONDS (22.3-36.8)
[2020-11-04] VITALS (16 sets, daily range): BP systolic 119–137; BP diastolic 77–87; PULSE 91–122; RESP 14–20; TEMP 36.3–37.3; O2SAT 91–100
[2020-11-04] LABS: Lactic Acid Reflex 1.2 mmol/L (0.7-2.1)
[2020-11-04 00:02] LABS: Alanine Aminotransferase 49 U/L (4-50); Alkaline Phosphatase 54 U/L (38-126); Anion Gap 8 mmol/L (8-16); Aspartate Amino Transferase 91 U/L (17-59); Bilirubin,Total 0.7 mg/dL (0.2-1.3); Blood Urea Nitrogen 24 mg/dL (9-20); CRP 5.7 mg/dL (<1.0); Calcium 8.8 mg/dL (8.4-10.2); Carbon Dioxide 26 mmol/L (22-30); Chloride 102 mmol/L (98-107); Estimated Glomerular Filt Rate > 60; Glucose 145 mg/dL (75-110); Potassium 4.6 mmol/L (3.4-5.0); Sodium 136 mmol/L (137-145)
--- NOTE | 2020-11-04 00:03 | ED.SOB ---
HPI - SOB/Dyspnea General Chief Complaint: Shortness of Breath/Dyspnea Stated Complaint: low O2 sat, weakness, covid positive 10/29/20 Time Seen by Provider: 11/03/20 23:25 History of Present Illness HPI Narrative: 75 yo male w/ h/o dementia, DM, htn presents to the Ed for SOB. He was seen here for AMS and low O2 saturation on 10/29. He was diagnosed with COVID-19. Chest x-ray was negative. He was weened off of oxygen and discharged. [facility] he was noted to have saturation in the 70s. On arrival here it is in the mid 90s on 2 liters. He is oriented x1 at baseline. History limited by dementia. Related Data Home Medications Medication Instructions Recorded Confirmed Artificial Tears (PF) 1 drp OPHTHALMIC (EYE) Q6H PRN #0 09/15/19 10/31/20 acetaminophen 325 mg PO Q6H PRN #0 09/15/19 10/31/20 amlodipine 5 mg PO DAILY 09/15/19 10/30/20 aspirin 81 mg PO DAILY #0 09/15/19 10/30/20 glipizide 5 mg PO DAILY 09/15/19 10/30/20 ibuprofen 600 mg PO TID PRN #0 09/15/19 10/30/20 lisinopril 20 mg PO DAILY 09/15/19 10/30/20 lorazepam 1 mg PO DAILY 09/15/19 10/30/20 metoprolol succinate 50 mg PO DAILY 09/15/19 10/30/20 rosuvastatin 10 mg PO DAILY 09/15/19 10/30/20 sertraline 50 mg PO DAILY 09/15/19 10/30/20 trazodone 75 mg PO QPM 09/15/19 10/30/20 cholecalciferol (vitamin D3) 1,250 mcg PO WEEKLY 09/15/20 10/30/20 Allergies Allergy/AdvReac Type Severity Reaction Status Date / Time Iodine and Iodide Containing Allergy Unknown Unknown Verified 10/29/20 21:17 Produc Sulfa (Sulfonamide Allergy Unknown Unknown Verified 10/29/20 21:17 Antibiotics) atorvastatin [From Lipitor] Allergy Unknown Verified 10/29/20 21:17 shellfish derived Allergy Unknown Verified 10/29/20 21:17 simvastatin Allergy Unknown Verified 10/29/20 21:17 IV Dye Allergy Unknown Uncoded 10/29/20 21:17 Review of Systems Review of Systems: ROS unobtainable: Yes unobtainable due to mental status PMFSH Past Medical History Medical History Depression Diabetes HLD (hyperlipidemia) HTN (hypertension) TIA (transient ischemic attack) Family History Family History Other Unknown family medical history Social History Social History Smoking status: Unknown if ever smoked Alcohol intake: unknown Substance use: unknown Substance use type: unknown Gender identity (if verbalized by the patient): Male Spiritual care concerns: No Exam Const: General: no acute distress and alert Nutritional Appearance: well nourished HENMT: Mouth: Yes dry mucous membranes Eyes: Pupils: Equal, round and reactive pupils present Resp: Effort & Inspection: normal respiratory effort Auscultation: clear to auscultation bilaterally Cardio: Rate: tachycardic Rhythm: regular rhythm GI: GI Palp: Yes Soft to palpation and No Tenderness to palpation present (GI) Neuro: General: moves all extremities Other: Alert. Not answering questions or following commands. Extrem: General: normal to inspection and no edema Course Vital Signs Vital signs: Vital Signs Temperature 38.7 C H 11/03/20 23:23 Pulse Rate 110 H 11/03/20 23:23 Respiratory Rate 20 11/03/20 23:23 Blood Pressure 123/77 11/03/20 23:23 Pulse Oximetry 89 L 11/03/20 23:23 Temperature 38.7 C H 11/03/20 23:23 Pulse Rate 96 11/04/20 02:36 Respiratory Rate 18 11/04/20 02:36 Blood Pressure 122/85 11/04/20 02:36 Pulse Oximetry 96 11/04/20 02:36 MDM - SOB/Dyspnea MDM Narrative Medical decision making narrative: He has new oxygen demand and infiltrates on x-ray. I will plan to admit for observation. Differential Diagnosis Differential diagnosis: Likely acute exacerbation of chronic obstructive airways disease, community acquired pneumonia and other (COVID-19) Medical Records Attestation: I reviewed the pat
[2020-11-04 00:43] LABS: Add Urine Microscopic? YES; Appearance Urine Clear (Clear); Bacteria Urine Trace /hpf; Bilirubin Urine Negative (Negative); Blood Urine 1+ (Negative); Color Urine Yellow (Yellow); Glucose Urine UA Negative (Negative); Ketones Urine Trace mg/dL (Negative); Leukocyte Esterase Ur Negative LEU/UL (Negative); Mucus Urine Rare /lpf; Nitrate Urine Negative (Negative); Protein Urine 3+ mg/dL (Negative); Specific Grav Ur 1.024 (1.001-1.035); Squamous Epithelial Cell Urine Rare /hpf (Few); WBC Urine 0-3 /hpf
--- NOTE | 2020-11-04 01:55 | PM.IMHP ---
H&P: HPI History of Present Illness Date/Time: 11/04/20 01:55 Chief Complaint: [facility] from [facility] secondary to hypoxia. Narrative: This is a 75 year old demented male who was just admitted to our Hospitalist service and discharged 4 days ago after he was treated for COVID-19 and hypoxia. Tonight the patient was [facility] the [facility] the [facility] secondary to hypoxia. The patient is not answering any questions and it appears that he was doing the same thing on his last hospitalization 4 days ago. He was found to be saturating in the upper 80s and placed on 2L of oxygen via NC. Routine labs were obtained which were virtually unremarkable. CXR demonstrated pulmonary congestion and bilateral airspace opacities. No further history is obtainable from the patient as he is not answering any questions. The patient does follow me around the room with his eyes. Review of Systems Review of Systems: ROS unobtainable: Yes unobtainable due to mental status PMFSH Past Medical History Medical History Depression Diabetes HLD (hyperlipidemia) HTN (hypertension) TIA (transient ischemic attack) Family History Family History Other Unknown family medical history Social History Social History Smoking status: Unknown if ever smoked Alcohol intake: unknown Substance use: unknown Substance use type: unknown Gender identity (if verbalized by the patient): Male Spiritual care concerns: No Comments Past histories are unobtainable secondary to the patient not answering questions. Meds Home Medications and Allergies Home Medications Medication Instructions Recorded Confirmed Type Artificial Tears (PF) 1 drp OPHTHALMIC (EYE) Q6H PRN #0 09/15/19 11/04/20 History acetaminophen 650 mg PO Q6H PRN #0 09/15/19 11/04/20 History amlodipine 5 mg PO DAILY 09/15/19 11/04/20 History aspirin 81 mg PO DAILY #0 09/15/19 11/04/20 History glipizide 5 mg PO DAILY 09/15/19 11/04/20 History ibuprofen 600 mg PO TID PRN #0 09/15/19 11/04/20 History lisinopril 20 mg PO DAILY 09/15/19 11/04/20 History lorazepam 1 mg PO BID 09/15/19 11/04/20 History metoprolol succinate 50 mg PO DAILY 09/15/19 11/04/20 History rosuvastatin 10 mg PO DAILY 09/15/19 11/04/20 History sertraline 50 mg PO DAILY 09/15/19 11/04/20 History trazodone 75 mg PO HS 09/15/19 11/04/20 History cholecalciferol (vitamin D3) 1,250 mcg PO MONTHLY 09/15/20 11/04/20 History Allergies Allergy/AdvReac Type Severity Reaction Status Date / Time Iodine and Iodide Containing Allergy Unknown Unknown Verified 11/04/20 05:05 Produc Sulfa (Sulfonamide Allergy Unknown Unknown Verified 11/04/20 05:05 Antibiotics) atorvastatin [From Lipitor] Allergy Unknown Verified 11/04/20 05:05 shellfish derived Allergy Unknown Verified 11/04/20 05:05 simvastatin Allergy Unknown Verified 11/04/20 05:05 IV Dye Allergy Unknown Uncoded 10/29/20 21:17 Vital Signs Vital Signs - 24 hr 11/03/20 23:23 11/03/20 23:37 11/04/20 00:17 Temperature 38.7 C H Pulse Rate 110 H 100 Respiratory Rate 20 20 Blood Pressure 123/77 132/83 Pulse Oximetry 89 L 93 95 11/04/20 00:52 Temperature Pulse Rate 96 Respiratory Rate 18 Blood Pressure 122/80 Pulse Oximetry 97 Exam Const: General: healthy appearing, no acute distress, alert and awake Nutritional Appearance: well nourished Orientation/consciousness: Other orientation findings (awake, alert but does not answer questions) HENMT: Head: normal to inspection General nose exam: Normal external nose present Face and sinus: normal facial exam Mouth: Yes Normal oral and palatal mucosa present and Yes oropharynx normal Eyes: Pupils: Equal, round and reactive pupils present EOM: EOMs intact bilaterally Neck: Neck: supple and no JVD Thyroid: thyroid normal Lymphat
--- NOTE | 2020-11-04 01:57 | PC.NURSE ---
pt in CT at this time. adriana in [place] called this RN and stated that they are having issues in CT w/ pt. she states pt won't stay still and they've attempted it 3 times. notified.
[2020-11-04] MEDS: ALBUTEROL SULFATE (*SP) INHALER 1 PUFF (02:22)
--- NOTE | 2020-11-04 03:45 | ADMGEN ---
This patient, Carroll Roy, was admitted to [facility] Surg Room 312-01. Patient/family oriented to hospital policies and general routines including ID bracelet, bed and alarms, visiting hours, pain management, procedures, bathroom and other care routines, personal items, smoking policy, room service/diet, and visiting hours. Information on how to activate the Rapid Response Team has been discussed. Patient/Family are encouraged to report perceived risks to care and to ask questions if they do not understand what they are told or what they should do.
[2020-11-04] MEDS: LACTATED RINGERS 1,000 ML 75 ML IV CONT ×2 (04:12→17:51)
[2020-11-04 07:11] LABS: Basophils Percent Auto 0.2 % (0.2-1.2); Hemoglobin 13.6 g/dL (14.0-18.0); Immature Granulocyte Absolute 0.02 K/mm3 (0.00-0.031); Immature Granulocyte Percent A 0.3 % (0-0.5); Lymphocytes Absolute Auto 1.65 K/mm3 (0.9-3.2); Lymphocytes Percent Auto 27.5 % (18.3-44.2); Mean Corpuscular HGB Conc 32.4 g/dl (32-36); Mean Corpuscular Hemoglobin 27.6 pg (26-34); Mean Corpuscular Volume 85.4 fl (80-100); Mean Platelet Volume 10.3 fl (7.4-10.4); Monocytes Absolute Auto 0.7 K/mm3 (0.1-0.6); Monocytes Percent Auto 12.2 % (2.6-8.5); Neutrophils Absolute Auto 3.6 K/mm3 (1.3-6.7); Neutrophils Percent Auto 59.8 % (45.5-73.1); Platelet Count Result 160 k/mm3 (150-375); Red Blood Count 4.92 M/mm3 (4.6-6.20)
[2020-11-04 07:19] LABS: Anion Gap 5 mmol/L (8-16); Blood Urea Nitrogen 22 mg/dL (9-20); Calcium 8.4 mg/dL (8.4-10.2); Carbon Dioxide 29 mmol/L (22-30); Chloride 104 mmol/L (98-107); Estimated Glomerular Filt Rate > 60; Glucose 135 mg/dL (75-110); Magnesium 2.2 mg/dL (1.6-2.3); Potassium 4.8 mmol/L (3.4-5.0); Sodium 138 mmol/L (137-145)
[2020-11-04] MEDS: DEXAMETHASONE SOD PHOS INJ 4 MG/ML VIAL 6 MG IV PUSH (08:04)
[2020-11-04] MEDS: ALBUTEROL SULFATE (*SP) AEROSOL 1 PUFF 2 PUFF INHALATION ×3 (08:04→22:39)
[2020-11-04] MEDS: ENOXAPARIN 40 MG/0.4 ML SYRINGE SUB-Q (08:09)
[2020-11-04 08:21] LABS: Glucose Point of Care 139 (65-105)
[2020-11-04 08:25] LABS: Glucose Point of Care 131 (65-105)
[2020-11-04 12:47] LABS: Glucose Point of Care 146 (65-105)
--- NOTE | 2020-11-04 16:58 | PM.IMPN ---
Progress Note: A&P Assessment and Plan (1) Hypoxia: Code(s): R09.02 - Hypoxemia Status: Acute Assessment and Plan: The patient has been placed in observation status. Continue oxygen supplementation. Continuous pulse oximetry. Wean off of oxygen when possible. (2) COVID-19: Code(s): U07.1 - COVID-19 Status: Acute Assessment and Plan: Continue droplet isolation, bronchodilators, decadron IV. supportive care. (3) Altered mental status: Qualifiers: Altered mental status type: delirium Qualified Code(s): R41.0 - Disorientation, unspecified Code(s): R41.82 - Altered mental status, unspecified Status: Acute Assessment and Plan: Acute altered mental status vs. dementia? (4) Diabetes: Qualifiers: Diabetes mellitus type: type 2 Diabetes mellitus alf insulin use: without buttermilk drier operator use Diabetes mellitus complication status: without complication Qualified Code(s): E11.9 - Type 2 diabetes mellitus without complications Code(s): E11.9 - Type 2 diabetes mellitus without complications Status: Chronic Assessment and Plan: Accuchecks, SSI Coverage, hypoglycemic protocol. continue glipizide. (5) HTN (hypertension): Qualifiers: Hypertension type: unspecified Qualified Code(s): I10 - Essential (primary) hypertension Code(s): I10 - Essential (primary) hypertension Status: Chronic Assessment and Plan: Stable. Monitor blood pressure. Continue lisinopril and amlodipine. (6) HLD (hyperlipidemia): Qualifiers: Hyperlipidemia type: unspecified Qualified Code(s): E78.5 - Hyperlipidemia, unspecified Code(s): E78.5 - Hyperlipidemia, unspecified Status: Chronic Assessment and Plan: Continue Crestor (7) Depression: Qualifiers: Depression Type: unspecified Qualified Code(s): F32.9 - Major depressive disorder, single episode, unspecified Code(s): F32.9 - Major depressive disorder, single episode, unspecified Status: Chronic Assessment and Plan: Continue Sertraline PO. Subjective Date/time seen: 11/04/20 16:58 Interval history: 75 year old demented male who was just admitted to our Hospitalist service and discharged 4 days ago after he was treated for COVID-19 and hypoxia. Recently discharged readmitted with hypoxia. Review of Systems Review of Systems: All systems reviewed & are unremarkable except as noted in HPI and below Exam Narrative: Exam Narrative: Tired, weak on 2 liters of oxygen Resp: Effort & Inspection: normal respiratory effort Auscultation: diminished lung sounds Cardio: Rate: regular rate Rhythm: regular rhythm Heart sounds: no murmurs GI: Inspection: normal to inspection Auscultation: normal bowel sounds Extrem: General: normal to inspection and no edema Objective Data Vital Signs Vital Signs: Vital Signs - 24 hr 11/03/20 23:23 11/03/20 23:37 11/04/20 00:17 Temperature 38.7 C H Pulse Rate 110 H 100 Respiratory Rate 20 20 Blood Pressure 123/77 132/83 Pulse Oximetry 89 L 93 95 11/04/20 00:52 11/04/20 02:05 11/04/20 02:27 Temperature Pulse Rate 96 106 H 102 H Respiratory Rate 18 16 20 Blood Pressure 122/80 122/79 Pulse Oximetry 97 95 11/04/20 02:36 11/04/20 03:22 11/04/20 03:32 Temperature 36.9 C Pulse Rate 96 93 94 Respiratory Rate 18 14 14 Blood Pressure 122/85 125/85 Pulse Oximetry 96 97 96 11/04/20 03:44 11/04/20 04:00 11/04/20 08:00 Temperature 36.8 C 36.3 C L Pulse Rate 99 91 Respiratory Rate 18 18 Blood Pressure 119/80 127/84 Pulse Oximetry 100 93 92 11/04/20 09:00 11/04/20 10:00 11/04/20 12:00 Temperature 36.8 C Pulse Rate 98 93 109 H Respiratory Rate 18 20 Blood Pressure 128/77 Pulse Oximetry 91 91 11/04/20 14:00 11/04/20 16:00 Temperature 37.1 C Pulse Rate 109 H 122 H Respiratory Rate 20 Blood Pressure 137/8
[2020-11-04 19:00] LABS: Glucose Point of Care 151 (65-105)
[2020-11-04 22:54] LABS: Glucose Point of Care 143 (65-105)
[2020-11-05] VITALS (7 sets, daily range): BP systolic 114–151; BP diastolic 74–85; PULSE 70–110; RESP 16–24; TEMP 36.7–37.7; O2SAT 90–99
[2020-11-05] MEDS: ALBUTEROL SULFATE (*SP) AEROSOL 1 PUFF 2 PUFF INHALATION ×4 (02:36→21:03)
[2020-11-05] MEDS: LACTATED RINGERS 1,000 ML 75 ML IV CONT (07:09)
[2020-11-05] MEDS: ASPIRIN 81 MG CHEWABLE TABLET PO (08:25)
[2020-11-05] MEDS: DEXAMETHASONE SOD PHOS INJ 4 MG/ML VIAL 6 MG IV PUSH (08:25)
[2020-11-05] MEDS: ENOXAPARIN 40 MG/0.4 ML SYRINGE SUB-Q (08:25)
[2020-11-05 08:42] LABS: Alanine Aminotransferase 42 U/L (4-50)
[2020-11-05 09:28] LABS: Glucose Point of Care 154 (65-105)
[2020-11-05] MEDS: LORazepam (*CRX) 1 MG TABLET PO (09:53)
[2020-11-05] MEDS: amLODIPine BESYLATE 5 MG TABLET PO (09:53)
[2020-11-05] MEDS: guaiFENesin 12 HR 600 MG TABCR PO (09:54)
[2020-11-05] MEDS: lisinopriL 20 MG TABLET PO (09:54)
[2020-11-05] MEDS: ROSUVASTATIN 10 MG TABLET PO (09:55)
[2020-11-05] MEDS: METOPROLOL SUCCINATE EXT REL 50 MG TABCR PO (09:55)
[2020-11-05] MEDS: SERTRALINE HCL 50 MG TABLET PO (09:55)
[2020-11-05] MEDS: FUROSEMIDE 20 MG TABLET PO (09:56)
[2020-11-05] MEDS: REMDESIVIR 200 MG/NS 250 ML 200 MG/250 ML BAG 250 MG IVPB (11:15)
--- NOTE | 2020-11-05 12:19 | PCSTNOTE ---
Leon, Hospitalist, contacted this KNOCKOUT MAN to discuss this patient's case and concern for risk for aspiration. By end of discussion, it was decided to wait until tomorrow to complete the Bedside Swallow Evaluation. Therapist will consult with nurse in the morning prior to attempting the Bedside Swallow Evaluation.
[2020-11-05 12:54] LABS: Glucose Point of Care 165 (65-105)
--- NOTE | 2020-11-05 14:36 | P.PNIM_ITS ---
Progress Note: A&P Assessment and Plan (1) Pneumonia due to 2019 novel coronavirus: Code(s): U07.1 - COVID-19; J12.82 - Pneumonia due to coronavirus disease 2019 Status: Acute Assessment and Plan: CT chest w/o contrast shows findings suggestive of COVID pneumonia, however, it may be prudent to start course of antibiotics to treat aspiration pneumonia. Patient now requiring 4 L NC as well. Patient started on remdesivir today, 11/05. * Remdesivir day #10/24 * Continue Decadron day #2 * Will do Zosyn 4.5 mg Q6hr to treat aspiration pneumonia, as well * Wean O2 as needed * Continue supportive care with Tylenol and albuterol as needed * Monitor for improvement in mental status (2) Hypoxia: Code(s): R09.02 - Hypoxemia Status: Acute Assessment and Plan: Likely secondary to COVID PNA but cannot rule out aspiration pneumonia given the history obtained today. * Continue oxygen supplementation. * Continuous pulse oximetry. * Wean off of oxygen when possible. * Treat for remdesivir and aspiration pna as noted above * Consider repeat V/Q scan to r/o PE if no improvement or change in respiratory status (3) COVID-19: Code(s): U07.1 - COVID-19 Status: Acute Assessment and Plan: * Continue droplet isolation, * Supportive care with bronchodilators and tylenol PRN * Decadron day #2 * Remedsivir day #10/24 * Monitor for improvement (4) Altered mental status: Qualifiers: Altered mental status type: delirium Qualified Code(s): R41.0 - Disorientation, unspecified Code(s): R41.82 - Altered mental status, unspecified Status: Acute Assessment and Plan: Acute altered mental status 2/2 acute infection vs. dementia? Ct brain unremarkable * Neurochecks. * treat infection as noted above (5) Diabetes: Qualifiers: Diabetes mellitus complication status: without complication Diabetes mellitus senior living insulin use: without equipment operator intermodal yard use Diabetes mellitus type: type 2 Qualified Code(s): E11.9 - Type 2 diabetes mellitus without complications Code(s): E11.9 - Type 2 diabetes mellitus without complications Status: Chronic Assessment and Plan: BGL 100s * Will do A1c * Accuchecks Q6hr while npo, hypoglycemia protocol, correctional insulin, NPO diet * Hold glipizide due to npo status (6) HTN (hypertension): Qualifiers: Hypertension type: unspecified Qualified Code(s): I10 - Essential (primary) hypertension Code(s): I10 - Essential (primary) hypertension Status: Chronic Assessment and Plan: Stable. last BP 130s sys * Monitor blood pressure. * Continue lisinopril and amlodipine. (7) HLD (hyperlipidemia): Qualifiers: Hyperlipidemia type: unspecified Qualified Code(s): E78.5 - Hyperlipidemia, unspecified Code(s): E78.5 - Hyperlipidemia, unspecified Status: Chronic Assessment and Plan: * Continue Crestor (8) Depression: Qualifiers: Depression Type: unspecified Qualified Code(s): F32.9 - Major depressive disorder, single episode, unspecified Code(s): F32.9 - Major depressive disorder, single episode, unspecified Status: Chronic Assessment and Plan: * Continue Sertraline PO. (9) D
--- NOTE | 2020-11-05 14:36 | PM.IMPN ---
Progress Note: A&P Assessment and Plan (1) Pneumonia due to 2019 novel coronavirus: Code(s): U07.1 - COVID-19; J12.82 - Pneumonia due to coronavirus disease 2018 Status: Acute Assessment and Plan: CT chest w/o contrast shows findings suggestive of COVID pneumonia, however, it may be prudent to start course of antibiotics to treat aspiration pneumonia. Patient now requiring 4 L NC as well. Patient started on remdesivir today, 11/05. Remdesivir day #1/5 Continue Decadron day #2 Will do Zosyn 4.5 mg Q6hr to treat aspiration pneumonia, as well Wean O2 as needed Continue supportive care with Tylenol and albuterol as needed Monitor for improvement in mental status (2) Hypoxia: Code(s): R09.02 - Hypoxemia Status: Acute Assessment and Plan: Likely secondary to COVID PNA but cannot rule out aspiration pneumonia given the history obtained today. Continue oxygen supplementation. Continuous pulse oximetry. Wean off of oxygen when possible. Treat for remdesivir and aspiration pna as noted above Consider repeat V/Q scan to r/o PE if no improvement or change in respiratory status (3) COVID-19: Code(s): U07.1 - COVID-19 Status: Acute Assessment and Plan: Continue droplet isolation, Supportive care with bronchodilators and tylenol PRN Decadron day #2 Remedsivir day #1/5 Monitor for improvement (4) Altered mental status: Qualifiers: Altered mental status type: delirium Qualified Code(s): R41.0 - Disorientation, unspecified Code(s): R41.82 - Altered mental status, unspecified Status: Acute Assessment and Plan: Acute altered mental status 2/2 acute infection vs. dementia? Ct brain unremarkable Neurochecks. treat infection as noted above (5) Diabetes: Qualifiers: Diabetes mellitus complication status: without complication Diabetes mellitus alf insulin use: without manager intermediate use Diabetes mellitus type: type 2 Qualified Code(s): E11.9 - Type 2 diabetes mellitus without complications Code(s): E11.9 - Type 2 diabetes mellitus without complications Status: Chronic Assessment and Plan: BGL 100s Will do A1c Accuchecks Q6hr while npo, hypoglycemia protocol, correctional insulin, NPO diet Hold glipizide due to npo status (6) HTN (hypertension): Qualifiers: Hypertension type: unspecified Qualified Code(s): I10 - Essential (primary) hypertension Code(s): I10 - Essential (primary) hypertension Status: Chronic Assessment and Plan: Stable. last BP 130s sys Monitor blood pressure. Continue lisinopril and amlodipine. (7) HLD (hyperlipidemia): Qualifiers: Hyperlipidemia type: unspecified Qualified Code(s): E78.5 - Hyperlipidemia, unspecified Code(s): E78.5 - Hyperlipidemia, unspecified Status: Chronic Assessment and Plan: Continue Crestor (8) Depression: Qualifiers: Depression Type: unspecified Qualified Code(s): F32.9 - Major depressive disorder, single episode, unspecified Code(s): F32.9 - Major depressive disorder, single episode, unspecified Status: Chronic Assessment and Plan: Continue Sertraline PO. (9) Dementia: Code(s): F03.90 - Unspecified dementia without behavioral disturbance Status: Acute Assessment and Plan: Per patient's daughter, Juancarlos, patient has been waxing and waning in terms of his mental status, sometimes having full conversations, while other times just able to tell her his name to being nonverbal during acute infections. As of recently, patient had swallow study at and ST recommended soft me
[2020-11-05] MEDS: INSULIN ASPART (*BKC) 100 UNITS/ML SUB-Q (16:53)
[2020-11-05 17:01] LABS: Glucose Point of Care 225 (65-105)
--- NOTE | 2020-11-05 18:01 | PC.NURSE ---
ALLOWED FACE TIME WITH FAMILY DAMIAN, BUT PT WAS UNABLE TO PARTAKE, FAMILY JUSTED WANTED TO SEE HIM
[2020-11-05 21:44] LABS: Glucose Point of Care 205 (65-105)
[2020-11-06] VITALS (7 sets, daily range): BP systolic 115–141; BP diastolic 74–87; PULSE 56–78; RESP 16–20; TEMP 36.5–37.1; O2SAT 90–98
[2020-11-06] MEDS: ALBUTEROL SULFATE (*SP) AEROSOL 1 PUFF 2 PUFF INHALATION ×4 (03:46→20:43)
[2020-11-06 06:30] LABS: Basophils Percent Auto 0.4 % (0.2-1.2); Eosinophils Absolute Auto 0.2 K/mm3 (0-0.3); Eosinophils Percent Auto 2.7 % (0-4.4); Hemoglobin 13.5 g/dL (14.0-18.0); Immature Granulocyte Absolute 0.07 K/mm3 (0.00-0.031); Lymphocytes Percent Auto 13.7 % (18.3-44.2); Mean Corpuscular HGB Conc 32.1 g/dl (32-36); Mean Corpuscular Hemoglobin 27.2 pg (26-34); Mean Corpuscular Volume 84.7 fl (80-100); Mean Platelet Volume 10.2 fl (7.4-10.4); Monocytes Absolute Auto 0.4 K/mm3 (0.1-0.6); Monocytes Percent Auto 5.3 % (2.6-8.5); Neutrophils Absolute Auto 5.6 K/mm3 (1.3-6.7); Neutrophils Percent Auto 76.9 % (45.5-73.1); Platelet Count Result 210 k/mm3 (150-375); Red Blood Count 4.96 M/mm3 (4.6-6.20); Red Cell Distribution Width 13.9 % (11.5-14.5); White Blood Count 7.3 K/mm3 (4.5-10.0)
[2020-11-06 06:46] LABS: Hemoglobin A1C 7.4 % (<5.7)
[2020-11-06 06:55] LABS: Alanine Aminotransferase 40 U/L (4-50); Albumin Level 3.6 g/dL (3.5-5.1); Alkaline Phosphatase 50 U/L (38-126); Anion Gap 8 mmol/L (8-16); Aspartate Amino Transferase 72 U/L (17-59); Bilirubin,Total 0.9 mg/dL (0.2-1.3); Blood Urea Nitrogen 22 mg/dL (9-20); Calcium 8.8 mg/dL (8.4-10.2); Carbon Dioxide 26 mmol/L (22-30); Chloride 107 mmol/L (98-107); Estimated CRCL calculation 52 ml/min; Estimated Glomerular Filt Rate > 60; Glucose 171 mg/dL (75-110); Lactate Dehydrogenase 1062 U/L (313-618); Magnesium 2.2 mg/dL (1.6-2.3); Sodium 141 mmol/L (137-145)
[2020-11-06 07:16] LABS: CRP 16.4 mg/dL (<1.0)
[2020-11-06 08:49] LABS: Glucose Point of Care 147 (65-105)
[2020-11-06] MEDS: DEXAMETHASONE SOD PHOS INJ 4 MG/ML VIAL 6 MG IV PUSH (09:31)
[2020-11-06] MEDS: ENOXAPARIN 40 MG/0.4 ML SYRINGE SUB-Q (09:31)
[2020-11-06] MEDS: METOPROLOL SUCCINATE EXT REL 50 MG TABCR PO (09:33)
[2020-11-06] MEDS: lisinopriL 20 MG TABLET PO (09:34)
[2020-11-06] MEDS: guaiFENesin 12 HR 600 MG TABCR PO ×2 (09:34→20:43)
[2020-11-06] MEDS: ASPIRIN 81 MG CHEWABLE TABLET PO (09:34)
[2020-11-06] MEDS: SERTRALINE HCL 50 MG TABLET PO (09:34)
[2020-11-06] MEDS: LORazepam (*CRX) 1 MG TABLET PO ×2 (09:34→16:53)
[2020-11-06] MEDS: ROSUVASTATIN 10 MG TABLET PO (09:34)
[2020-11-06] MEDS: amLODIPine BESYLATE 5 MG TABLET PO (09:34)
[2020-11-06] MEDS: REMDESIVIR 100 MG/NS 250 ML 100 MG/250 ML BAG 250 MG IVPB (11:23)
--- NOTE | 2020-11-06 12:27 | PCSTNOTE ---
Please refer to the Bedside Swallow Evaluation in the EMR. Please note, silent aspiration cannot be ruled out at bedside.
[2020-11-06 12:43] LABS: Glucose Point of Care 180 (65-105)
--- NOTE | 2020-11-06 13:27 | P.PNIM_ITS ---
Progress Note: A&P Assessment and Plan (1) Pneumonia due to 2019 novel coronavirus: Code(s): U07.1 - COVID-19; J12.82 - Pneumonia due to coronavirus disease 2019 Status: Acute Assessment and Plan: CT chest w/o contrast shows findings suggestive of COVID pneumonia, however, it may be prudent to continue course of antibiotics to treat aspiration pneumonia. Patient continues to require 4 L NC as well. OVerall, patient appears to be improving today; appears more alert and interactive with me today * Remdesivir day #2/5 * Continue Decadron day #3 * Will continue IV Zosyn 4.5 mg Q6hr (day #2) to treat aspiration pneumonia, as well * Wean O2 as needed * Continue supportive care with Tylenol and albuterol as needed * Monitor for improvement in mental status (2) Hypoxia: Code(s): R09.02 - Hypoxemia Status: Acute Assessment and Plan: Likely secondary to COVID PNA but cannot rule out aspiration pneumonia given the history obtained * Continue oxygen supplementation. * Continuous pulse oximetry. * Wean off of oxygen when possible. * Treat for remdesivir and aspiration pna as noted above * Consider repeat V/Q scan to r/o PE if no improvement or change in respiratory status (3) COVID-19: Code(s): U07.1 - COVID-19 Status: Acute Assessment and Plan: * Continue droplet isolation, * Supportive care with bronchodilators and tylenol PRN * Decadron day #3 * Remedsivir day #2/5 * Monitor for improvement (4) Altered mental status: Qualifiers: Altered mental status type: delirium Qualified Code(s): R41.0 - Disorientation, unspecified Code(s): R41.82 - Altered mental status, unspecified Status: Acute Assessment and Plan: Acute altered mental status 2/2 acute infection vs. worsening dementia? Ct brain unremarkable * Neurochecks. * treat infection as noted above (5) Diabetes: Qualifiers: Diabetes mellitus type: type 2 Diabetes mellitus intermediate frame tender insulin use: without intermediate frame tender use Diabetes mellitus complication status: without complication Qualified Code(s): E11.9 - Type 2 diabetes mellitus without complications Code(s): E11.9 - Type 2 diabetes mellitus without complications Status: Chronic Assessment and Plan: BGL 100s. A1c 7.4 * Accuchecks ACHS, hypoglycemia protocol, correctional insulin, diabetic pureed/mod thickened liquid diet * Hold glipizide (6) HTN (hypertension): Qualifiers: Hypertension type: unspecified Qualified Code(s): I10 - Essential (primary) hypertension Code(s): I10 - Essential (primary) hypertension Status: Chronic Assessment and Plan: Stable. last BP 140s sys * Monitor blood pressure. * Continue lisinopril and amlodipine. (7) HLD (hyperlipidemia): Qualifiers: Hyperlipidemia type: unspecified Qualified Code(s): E78.5 - Hyperlipidemia, unspecified Code(s): E78.5 - Hyperlipidemia, unspecified Status: Chronic Assessment and Plan: * Continue Crestor (8) Depression: Qualifiers: Depression Type: unspecified Qualified Code(s): F32.9 - Major depressive disorder, single episode, unspecified Code(s): F32.9 - Major depressive disorder, single episode, unspecified Status: Chr
--- NOTE | 2020-11-06 13:27 | PM.IMPN ---
Progress Note: A&P Assessment and Plan (1) Pneumonia due to 2019 novel coronavirus: Code(s): U07.1 - COVID-19; J12.82 - Pneumonia due to coronavirus disease 2018 Status: Acute Assessment and Plan: CT chest w/o contrast shows findings suggestive of COVID pneumonia, however, it may be prudent to continue course of antibiotics to treat aspiration pneumonia. Patient continues to require 4 L NC as well. OVerall, patient appears to be improving today; appears more alert and interactive with me today Remdesivir day #2/5 Continue Decadron day #3 Will continue IV Zosyn 4.5 mg Q6hr (day #2) to treat aspiration pneumonia, as well Wean O2 as needed Continue supportive care with Tylenol and albuterol as needed Monitor for improvement in mental status (2) Hypoxia: Code(s): R09.02 - Hypoxemia Status: Acute Assessment and Plan: Likely secondary to COVID PNA but cannot rule out aspiration pneumonia given the history obtained Continue oxygen supplementation. Continuous pulse oximetry. Wean off of oxygen when possible. Treat for remdesivir and aspiration pna as noted above Consider repeat V/Q scan to r/o PE if no improvement or change in respiratory status (3) COVID-19: Code(s): U07.1 - COVID-19 Status: Acute Assessment and Plan: Continue droplet isolation, Supportive care with bronchodilators and tylenol PRN Decadron day #3 Remedsivir day #2/5 Monitor for improvement (4) Altered mental status: Qualifiers: Altered mental status type: delirium Qualified Code(s): R41.0 - Disorientation, unspecified Code(s): R41.82 - Altered mental status, unspecified Status: Acute Assessment and Plan: Acute altered mental status 2/2 acute infection vs. worsening dementia? Ct brain unremarkable Neurochecks. treat infection as noted above (5) Diabetes: Qualifiers: Diabetes mellitus type: type 2 Diabetes mellitus fdc insulin use: without bed bug exterminator use Diabetes mellitus complication status: without complication Qualified Code(s): E11.9 - Type 2 diabetes mellitus without complications Code(s): E11.9 - Type 2 diabetes mellitus without complications Status: Chronic Assessment and Plan: BGL 100s. A1c 7.4 Accuchecks ACHS, hypoglycemia protocol, correctional insulin, diabetic pureed/mod thickened liquid diet Hold glipizide (6) HTN (hypertension): Qualifiers: Hypertension type: unspecified Qualified Code(s): I10 - Essential (primary) hypertension Code(s): I10 - Essential (primary) hypertension Status: Chronic Assessment and Plan: Stable. last BP 140s sys Monitor blood pressure. Continue lisinopril and amlodipine. (7) HLD (hyperlipidemia): Qualifiers: Hyperlipidemia type: unspecified Qualified Code(s): E78.5 - Hyperlipidemia, unspecified Code(s): E78.5 - Hyperlipidemia, unspecified Status: Chronic Assessment and Plan: Continue Crestor (8) Depression: Qualifiers: Depression Type: unspecified Qualified Code(s): F32.9 - Major depressive disorder, single episode, unspecified Code(s): F32.9 - Major depressive disorder, single episode, unspecified Status: Chronic Assessment and Plan: Continue Sertraline PO. (9) Dementia: Code(s): F03.90 - Unspecified dementia without behavioral disturbance Status: Acute Assessment and Plan: Per patient's daughter, Juancarlos, patient has been waxing and waning in terms of his mental status, sometimes having full conversations, while other times just able to tell her his name
[2020-11-06] MEDS: INSULIN ASPART (*BKC) 100 UNITS/ML SUB-Q (16:56)
[2020-11-06 17:49] LABS: Glucose Point of Care 214 (65-105)
[2020-11-07] VITALS (9 sets, daily range): BP systolic 107–132; BP diastolic 47–73; PULSE 60–109; RESP 20; TEMP 36.3–36.9; O2SAT 85–100
[2020-11-07 00:25] LABS: Glucose Point of Care 189 (65-105)
[2020-11-07] MEDS: ALBUTEROL SULFATE (*SP) AEROSOL 1 PUFF 2 PUFF INHALATION ×4 (02:13→21:41)
[2020-11-07 06:32] LABS: Basophils Percent Auto 0.3 % (0.2-1.2); Hematocrit 39.5 % (42.0-52.0); Hemoglobin 13.1 g/dL (14.0-18.0); Immature Granulocyte Absolute 0.15 K/mm3 (0.00-0.031); Immature Granulocyte Percent A 1.2 % (0-0.5); Lymphocytes Percent Auto 8.6 % (18.3-44.2); Mean Corpuscular HGB Conc 33.2 g/dl (32-36); Mean Corpuscular Hemoglobin 27.7 pg (26-34); Mean Corpuscular Volume 83.5 fl (80-100); Mean Platelet Volume 10.5 fl (7.4-10.4); Monocytes Absolute Auto 0.6 K/mm3 (0.1-0.6); Monocytes Percent Auto 4.9 % (2.6-8.5); Neutrophils Absolute Auto 10.9 K/mm3 (1.3-6.7); Platelet Count Result 259 k/mm3 (150-375); Red Blood Count 4.73 M/mm3 (4.6-6.20); Red Cell Distribution Width 13.7 % (11.5-14.5); White Blood Count 12.8 K/mm3 (4.5-10.0)
[2020-11-07 07:06] LABS: Alanine Aminotransferase 35 U/L (4-50); Albumin Level 3.3 g/dL (3.5-5.1); Alkaline Phosphatase 45 U/L (38-126); Anion Gap 6 mmol/L (8-16); Aspartate Amino Transferase 58 U/L (17-59); Bilirubin,Total 0.7 mg/dL (0.2-1.3); Blood Urea Nitrogen 26 mg/dL (9-20); Calcium 8.9 mg/dL (8.4-10.2); Carbon Dioxide 27 mmol/L (22-30); Chloride 107 mmol/L (98-107); Estimated CRCL calculation 52 ml/min; Estimated Glomerular Filt Rate > 60; Glucose 175 mg/dL (75-110); Potassium 3.7 mmol/L (3.4-5.0); Sodium 140 mmol/L (137-145)
[2020-11-07 07:26] LABS: Magnesium 2.1 mg/dL (1.6-2.3)
[2020-11-07] MEDS: ROSUVASTATIN 10 MG TABLET PO (08:55)
[2020-11-07] MEDS: DEXAMETHASONE SOD PHOS INJ 4 MG/ML VIAL 6 MG IV PUSH (08:55)
[2020-11-07] MEDS: ASPIRIN 81 MG CHEWABLE TABLET PO (08:55)
[2020-11-07] MEDS: amLODIPine BESYLATE 5 MG TABLET PO (08:55)
[2020-11-07] MEDS: lisinopriL 20 MG TABLET PO (08:55)
[2020-11-07] MEDS: SERTRALINE HCL 50 MG TABLET PO (08:55)
[2020-11-07] MEDS: METOPROLOL SUCCINATE EXT REL 50 MG TABCR PO (08:55)
[2020-11-07] MEDS: guaiFENesin 12 HR 600 MG TABCR PO ×2 (08:55→20:48)
[2020-11-07] MEDS: ENOXAPARIN 40 MG/0.4 ML SYRINGE SUB-Q ×2 (08:56→20:49)
[2020-11-07] MEDS: LORazepam (*CRX) 1 MG TABLET PO ×2 (09:01→16:03)
[2020-11-07 09:13] LABS: Glucose Point of Care 197 (65-105)
[2020-11-07] MEDS: REMDESIVIR 100 MG/NS 250 ML 100 MG/250 ML BAG 250 MG IVPB (09:28)
[2020-11-07] MEDS: INSULIN ASPART (*BKC) 100 UNITS/ML SUB-Q ×2 (12:20→17:46)
[2020-11-07 14:09] LABS: Glucose Point of Care 263 (65-105)
--- NOTE | 2020-11-07 16:33 | P.PNIM_ITS ---
Progress Note: A&P Assessment and Plan (1) Pneumonia due to 2019 novel coronavirus: Code(s): U07.1 - COVID-19; J12.82 - Pneumonia due to coronavirus disease 2019 Status: Acute Assessment and Plan: CT chest w/o contrast shows findings suggestive of COVID pneumonia, however, it may be prudent to continue course of antibiotics to treat aspiration pneumonia. Patient continues to require 5 L NC as well. * Alert, no answering questions. * Remdesivir day #3/5 * Continue Decadron day #4 * Will continue IV Zosyn 4.5 mg Q6hr (day #3) to treat aspiration pneumonia, as well * Wean O2 as needed * Continue supportive care with Tylenol and albuterol as needed * Monitor for improvement in mental status (2) Hypoxia: Code(s): R09.02 - Hypoxemia Status: Acute Assessment and Plan: Likely secondary to COVID PNA but cannot rule out aspiration pneumonia given the history obtained * Continue oxygen supplementation. * Continuous pulse oximetry. * Wean off of oxygen when possible. * Treat for remdesivir and aspiration pna as noted above * Consider repeat V/Q scan to r/o PE if no improvement or change in respiratory status (3) COVID-19: Code(s): U07.1 - COVID-19 Status: Acute Assessment and Plan: * Continue droplet isolation, * Supportive care with bronchodilators and tylenol PRN * Decadron day #4 * Remedsivir day #3/5 * Monitor for improvement (4) Altered mental status: Qualifiers: Altered mental status type: delirium Qualified Code(s): R41.0 - Disorientation, unspecified Code(s): R41.82 - Altered mental status, unspecified Status: Acute Assessment and Plan: Acute altered mental status 2/2 acute infection vs. worsening dementia? Ct brain unremarkable * Neurochecks. * treat infection as noted above (5) Diabetes: Qualifiers: Diabetes mellitus type: type 2 Diabetes mellitus longitudinal float operator insulin use: without longitudinal float operator use Diabetes mellitus complication status: without complication Qualified Code(s): E11.9 - Type 2 diabetes mellitus without complications Code(s): E11.9 - Type 2 diabetes mellitus without complications Status: Chronic Assessment and Plan: BGL 100s. A1c 7.4 * Accuchecks ACHS, hypoglycemia protocol, correctional insulin, diabetic pureed/mod thickened liquid diet * Hold glipizide (6) HTN (hypertension): Qualifiers: Hypertension type: unspecified Qualified Code(s): I10 - Essential (primary) hypertension Code(s): I10 - Essential (primary) hypertension Status: Chronic Assessment and Plan: Stable. last BP 140s sys * Monitor blood pressure. * Continue lisinopril and amlodipine. (7) HLD (hyperlipidemia): Qualifiers: Hyperlipidemia type: unspecified Qualified Code(s): E78.5 - Hyperlipidemia, unspecified Code(s): E78.5 - Hyperlipidemia, unspecified Status: Chronic Assessment and Plan: * Continue Crestor (8) Depression: Qualifiers: Depression Type: unspecified Qualified Code(s): F32.9 - Major depressiv e disorder, single episode, unspecified Code(s): F32.9 - Major depressive disorder, single episode, unspecified Status: Chronic Assessment and Plan: * Continue Sertral
--- NOTE | 2020-11-07 16:33 | PM.IMPN ---
Progress Note: A&P Assessment and Plan (1) Pneumonia due to 2019 novel coronavirus: Code(s): U07.1 - COVID-19; J12.82 - Pneumonia due to coronavirus disease 2019 Status: Acute Assessment and Plan: CT chest w/o contrast shows findings suggestive of COVID pneumonia, however, it may be prudent to continue course of antibiotics to treat aspiration pneumonia. Patient continues to require 5 L NC as well. Alert, no answering questions. Remdesivir day #3/5 Continue Decadron day #4 Will continue IV Zosyn 4.5 mg Q6hr (day #3) to treat aspiration pneumonia, as well Wean O2 as needed Continue supportive care with Tylenol and albuterol as needed Monitor for improvement in mental status (2) Hypoxia: Code(s): R09.02 - Hypoxemia Status: Acute Assessment and Plan: Likely secondary to COVID PNA but cannot rule out aspiration pneumonia given the history obtained Continue oxygen supplementation. Continuous pulse oximetry. Wean off of oxygen when possible. Treat for remdesivir and aspiration pna as noted above Consider repeat V/Q scan to r/o PE if no improvement or change in respiratory status (3) COVID-19: Code(s): U07.1 - COVID-19 Status: Acute Assessment and Plan: Continue droplet isolation, Supportive care with bronchodilators and tylenol PRN Decadron day #4 Remedsivir day #3/5 Monitor for improvement (4) Altered mental status: Qualifiers: Altered mental status type: delirium Qualified Code(s): R41.0 - Disorientation, unspecified Code(s): R41.82 - Altered mental status, unspecified Status: Acute Assessment and Plan: Acute altered mental status 2/2 acute infection vs. worsening dementia? Ct brain unremarkable Neurochecks. treat infection as noted above (5) Diabetes: Qualifiers: Diabetes mellitus type: type 2 Diabetes mellitus joint terminal attack controller insulin use: without joint terminal attack controller use Diabetes mellitus complication status: without complication Qualified Code(s): E11.9 - Type 2 diabetes mellitus without complications Code(s): E11.9 - Type 2 diabetes mellitus without complications Status: Chronic Assessment and Plan: BGL 100s. A1c 7.4 Accuchecks ACHS, hypoglycemia protocol, correctional insulin, diabetic pureed/mod thickened liquid diet Hold glipizide (6) HTN (hypertension): Qualifiers: Hypertension type: unspecified Qualified Code(s): I10 - Essential (primary) hypertension Code(s): I10 - Essential (primary) hypertension Status: Chronic Assessment and Plan: Stable. last BP 140s sys Monitor blood pressure. Continue lisinopril and amlodipine. (7) HLD (hyperlipidemia): Qualifiers: Hyperlipidemia type: unspecified Qualified Code(s): E78.5 - Hyperlipidemia, unspecified Code(s): E78.5 - Hyperlipidemia, unspecified Status: Chronic Assessment and Plan: Continue Crestor (8) Depression: Qualifiers: Depression Type: unspecified Qualified Code(s): F32.9 - Major depressive disorder, single episode, unspecified Code(s): F32.9 - Major depressive disorder, single episode, unspecified Status: Chronic Assessment and Plan: Continue Sertraline PO. (9) Dementia: Code(s): F03.90 - Unspecified dementia without behavioral disturbance Status: Acute Assessment and Plan: Per patient's daughter, Juancarlos, patient has been waxing and waning in terms of his mental status, sometimes having full conversations, while other times just able to tell her his name to being nonverbal during acute infections. As of recently,
[2020-11-07 19:12] LABS: Glucose Point of Care 239 (65-105)
[2020-11-07] MEDS: ACETAMINOPHEN 325 MG TABLET 650 MG PO (20:49)
[2020-11-07 21:09] LABS: Glucose Point of Care 271 (65-105)
[2020-11-08] VITALS (9 sets, daily range): BP systolic 108–136; BP diastolic 52–87; PULSE 45–64; RESP 18–22; TEMP 36.2–36.6; O2SAT 91–99
[2020-11-08] MEDS: ALBUTEROL SULFATE (*SP) AEROSOL 1 PUFF 2 PUFF INHALATION ×4 (01:37→21:59)
[2020-11-08 06:31] LABS: Basophils Percent Auto 0.2 % (0.2-1.2); Hematocrit 35.5 % (42.0-52.0); Hemoglobin 11.8 g/dL (14.0-18.0); Immature Granulocyte Percent A 0.9 % (0-0.5); Lymphocytes Absolute Auto 1.18 K/mm3 (0.9-3.2); Lymphocytes Percent Auto 10.1 % (18.3-44.2); Mean Corpuscular HGB Conc 33.2 g/dl (32-36); Mean Corpuscular Volume 81.2 fl (80-100); Mean Platelet Volume 10.3 fl (7.4-10.4); Monocytes Absolute Auto 0.8 K/mm3 (0.1-0.6); Monocytes Percent Auto 6.9 % (2.6-8.5); Neutrophils Absolute Auto 9.6 K/mm3 (1.3-6.7); Neutrophils Percent Auto 81.9 % (45.5-73.1); Platelet Count Result 267 k/mm3 (150-375); Red Blood Count 4.37 M/mm3 (4.6-6.20); Red Cell Distribution Width 13.4 % (11.5-14.5); White Blood Count 11.7 K/mm3 (4.5-10.0)
[2020-11-08 06:51] LABS: Alanine Aminotransferase 31 U/L (4-50); Alkaline Phosphatase 45 U/L (38-126); Anion Gap 6 mmol/L (8-16); Aspartate Amino Transferase 47 U/L (17-59); Bilirubin,Total 0.6 mg/dL (0.2-1.3); Blood Urea Nitrogen 24 mg/dL (9-20); CRP 3.9 mg/dL (<1.0); Calcium 8.6 mg/dL (8.4-10.2); Carbon Dioxide 28 mmol/L (22-30); Chloride 108 mmol/L (98-107); Estimated CRCL calculation 44 ml/min; Estimated Glomerular Filt Rate > 60; Glucose 269 mg/dL (75-110); Lactate Dehydrogenase 886 U/L (313-618); Magnesium 1.8 mg/dL (1.6-2.3); Potassium 3.6 mmol/L (3.4-5.0); Sodium 142 mmol/L (137-145)
[2020-11-08 08:51] LABS: Glucose Point of Care 244 (65-105)
[2020-11-08] MEDS: ACETAMINOPHEN 325 MG TABLET 650 MG PO ×2 (09:09→17:02)
[2020-11-08] MEDS: METOPROLOL SUCCINATE EXT REL 50 MG TABCR PO (09:10)
[2020-11-08] MEDS: ROSUVASTATIN 10 MG TABLET PO (09:10)
[2020-11-08] MEDS: SERTRALINE HCL 50 MG TABLET PO (09:10)
[2020-11-08] MEDS: amLODIPine BESYLATE 5 MG TABLET PO (09:10)
[2020-11-08] MEDS: LORazepam (*CRX) 1 MG TABLET PO ×2 (09:10→17:02)
[2020-11-08] MEDS: lisinopriL 20 MG TABLET PO (09:11)
[2020-11-08] MEDS: DEXAMETHASONE SOD PHOS INJ 4 MG/ML VIAL 6 MG IV PUSH (09:11)
[2020-11-08] MEDS: guaiFENesin 12 HR 600 MG TABCR PO ×2 (09:11→21:54)
[2020-11-08] MEDS: ASPIRIN 81 MG CHEWABLE TABLET PO (09:11)
[2020-11-08] MEDS: ENOXAPARIN 40 MG/0.4 ML SYRINGE SUB-Q ×2 (09:11→21:54)
[2020-11-08] MEDS: INSULIN ASPART (*BKC) 100 UNITS/ML SUB-Q ×2 (09:12→17:03)
[2020-11-08] MEDS: REMDESIVIR 100 MG/NS 250 ML 100 MG/250 ML BAG 250 MG IVPB (09:12)
--- NOTE | 2020-11-08 11:41 | PM.IMPN ---
Progress Note: A&P Assessment and Plan (1) Pneumonia due to 2019 novel coronavirus: Code(s): U07.1 - COVID-19; J12.82 - Pneumonia due to coronavirus disease 2019 Status: Acute Assessment and Plan: CT chest w/o contrast shows findings suggestive of COVID pneumonia, however, it may be prudent to continue course of antibiotics to treat aspiration pneumonia. Patient continues to require supplemental O2. Alert, not answering questions. Remdesivir day #4/5 Continue Decadron day #5 Will continue IV Zosyn 4.5 mg Q6hr (day #4) to treat aspiration pneumonia, as well Wean O2 as needed Continue supportive care with Tylenol and albuterol as needed Monitor for improvement in mental status (2) Hypoxia: Code(s): R09.02 - Hypoxemia Status: Acute Assessment and Plan: Likely secondary to COVID PNA but cannot rule out aspiration pneumonia given the history obtained Continue oxygen supplementation. Continuous pulse oximetry. Wean off of oxygen when possible. Treat for remdesivir and aspiration pna as noted above (3) COVID-19: Code(s): U07.1 - COVID-19 Status: Acute Assessment and Plan: Still with O2 requirement. Inflammatroy markers trending down. Continue droplet isolation, Supportive care with bronchodilators and tylenol PRN Continue Decadron and Remedsivir Monitor for improvement (4) Altered mental status: Qualifiers: Altered mental status type: delirium Qualified Code(s): R41.0 - Disorientation, unspecified Code(s): R41.82 - Altered mental status, unspecified Status: Acute Assessment and Plan: Acute altered mental status 2/2 acute infection vs. worsening dementia? CT brain 11/04 showing no acute findings. 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 Chart review showing that patient has been noted to be nonverbal in the past. Patient may be at his baseline (5) Diabetes: Qualifiers: Diabetes mellitus complication status: without complication Diabetes mellitus intermediate insulin use: without intermediate use Diabetes mellitus type: type 2 Qualified Code(s): E11.9 - Type 2 diabetes mellitus without complications Code(s): E11.9 - Type 2 diabetes mellitus without complications Status: Chronic Assessment and Plan: A1c 7.4. The patient's blood glucose was reviewed on 11/08 Glucose remains elevated at times. Continue AccuCheks covering with sliding scale. Hypoglycemia protocol available as needed. Continue current medications. Continue diabetic pureed/mod thickened liquid diet (6) HTN (hypertension): Qualifiers: Hypertension type: unspecified Qualified Code(s): I10 - Essential (primary) hypertension Code(s): I10 - Essential (primary) hypertension Status: Chronic Assessment and Plan: Stable. BP reviewed on 11/08. BP remains well controlled. Monitor blood pressure. Continue lisinopril and amlodipine. (7) HLD (hyperlipidemia): Qualifiers: Hyperlipidemia type: unspecified Qualified Code(s): E78.5 - Hyperlipidemia, unspecified Code(s): E78.5 - Hyperlipidemia, unspecified Status: Chronic Assessment and Plan: Stable. LFTs okay. Continue Crestor (8) Depression: Qualifiers: Depression Type: unspecified Qualified Code(s): F32.9 - Major depressive disorder, single episode, unspecified Code(s): F32.9 - Major depressive disorder, single episode, unspecified Status: Chronic Assessment and Plan: Stable Continue Sertraline PO. (9) Dementia: Code(s): F03
[2020-11-08 13:26] LABS: Glucose Point of Care 183 (65-105)
[2020-11-08 18:29] LABS: Glucose Point of Care 228 (65-105)
[2020-11-09] VITALS (9 sets, daily range): BP systolic 106–162; BP diastolic 51–92; PULSE 48–124; RESP 14–24; TEMP 35.9–36.6; O2SAT 90–100
[2020-11-09 06:32] LABS: Basophils Percent Auto 0.2 % (0.2-1.2); Hematocrit 38.2 % (42.0-52.0); Hemoglobin 12.6 g/dL (14.0-18.0); Immature Granulocyte Percent A 0.8 % (0-0.5); Lymphocytes Absolute Auto 1.68 K/mm3 (0.9-3.2); Mean Corpuscular Hemoglobin 27.2 pg (26-34); Mean Corpuscular Volume 82.3 fl (80-100); Mean Platelet Volume 10.6 fl (7.4-10.4); Monocytes Percent Auto 7.9 % (2.6-8.5); Neutrophils Absolute Auto 9.3 K/mm3 (1.3-6.7); Neutrophils Percent Auto 77.2 % (45.5-73.1); Platelet Count Result 307 k/mm3 (150-375); Red Blood Count 4.64 M/mm3 (4.6-6.20); Red Cell Distribution Width 13.8 % (11.5-14.5); White Blood Count 12.1 K/mm3 (4.5-10.0)
[2020-11-09 06:50] LABS: Alanine Aminotransferase 48 U/L (4-50); Albumin Level 3.3 g/dL (3.5-5.1); Alkaline Phosphatase 48 U/L (38-126); Anion Gap 6 mmol/L (8-16); Aspartate Amino Transferase 78 U/L (17-59); Bilirubin,Total 0.8 mg/dL (0.2-1.3); Blood Urea Nitrogen 24 mg/dL (9-20); Carbon Dioxide 26 mmol/L (22-30); Chloride 110 mmol/L (98-107); Estimated CRCL calculation 47 ml/min; Estimated Glomerular Filt Rate > 60; Glucose 172 mg/dL (75-110); Magnesium 1.8 mg/dL (1.6-2.3); Potassium 4.1 mmol/L (3.4-5.0); Sodium 142 mmol/L (137-145)
[2020-11-09 06:58] LABS: Lymphocytes Percent Auto 13.9 % (18.3-44.2)
[2020-11-09] MEDS: ALBUTEROL SULFATE (*SP) AEROSOL 1 PUFF 2 PUFF INHALATION ×3 (08:05→20:30)
[2020-11-09] MEDS: ASPIRIN 81 MG CHEWABLE TABLET PO (08:08)
[2020-11-09] MEDS: METOPROLOL SUCCINATE EXT REL 50 MG TABCR PO (08:08)
[2020-11-09] MEDS: lisinopriL 20 MG TABLET PO (08:09)
[2020-11-09] MEDS: guaiFENesin 12 HR 600 MG TABCR PO ×2 (08:09→21:39)
[2020-11-09] MEDS: SERTRALINE HCL 50 MG TABLET PO (08:09)
[2020-11-09] MEDS: amLODIPine BESYLATE 5 MG TABLET PO (08:09)
[2020-11-09] MEDS: ROSUVASTATIN 10 MG TABLET PO (08:09)
[2020-11-09] MEDS: DEXAMETHASONE SOD PHOS INJ 4 MG/ML VIAL 6 MG IV PUSH (08:10)
[2020-11-09] MEDS: ENOXAPARIN 40 MG/0.4 ML SYRINGE SUB-Q ×2 (08:10→21:39)
[2020-11-09] MEDS: LORazepam (*CRX) 1 MG TABLET PO ×2 (08:17→15:23)
[2020-11-09 08:24] LABS: Glucose Point of Care 129 (65-105)
[2020-11-09] MEDS: REMDESIVIR 100 MG/NS 250 ML 100 MG/250 ML BAG 250 MG IVPB (11:38)
[2020-11-09 12:18] LABS: Glucose Point of Care 228 (65-105)
[2020-11-09] MEDS: INSULIN ASPART (*BKC) 100 UNITS/ML SUB-Q ×2 (12:21→17:15)
--- NOTE | 2020-11-09 14:23 | PCSTNOTE ---
Patient refused treatment this session. He would not open his eyes, but responded with I'm not hungry
[2020-11-09 17:31] LABS: Glucose Point of Care 353 (65-105)
--- NOTE | 2020-11-09 17:32 | PM.IMPN ---
Progress Note: A&P Assessment and Plan (1) Pneumonia due to 2019 novel coronavirus: Code(s): U07.1 - COVID-19; J12.82 - Pneumonia due to coronavirus disease 2019 Status: Acute Assessment and Plan: CT chest w/o contrast shows findings suggestive of COVID pneumonia, however, it may be prudent to continue course of antibiotics to treat aspiration pneumonia. Patient continues to require supplemental O2. Alert, not answering questions. Remdesivir day #5/5 Continue Decadron day #6 Will continue IV Zosyn 4.5 mg Q6hr (day #5) to treat aspiration pneumonia, as well Weaned to room air this afternoon Continue supportive care with Tylenol and albuterol as needed Mental status better (2) Hypoxia: Code(s): R09.02 - Hypoxemia Status: Acute Assessment and Plan: Likely secondary to COVID PNA but cannot rule out aspiration pneumonia given the history obtained Continue oxygen supplementation as needed Treatment as noted above (3) COVID-19: Code(s): U07.1 - COVID-19 Status: Acute Assessment and Plan: Still with O2 requirement. Inflammatroy markers trending down. Continue droplet isolation, Supportive care with bronchodilators and tylenol PRN Continue Decadron; Remedsivir completed Monitor for improvement (4) Altered mental status: Qualifiers: Altered mental status type: delirium Qualified Code(s): R41.0 - Disorientation, unspecified Code(s): R41.82 - Altered mental status, unspecified Status: Acute Assessment and Plan: Acute altered mental status 2/2 acute infection vs. worsening dementia? CT brain 11/04 showing no acute findings. 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 Chart review showing that patient has been noted to be nonverbal in the past. Patient may be at his baseline (5) Diabetes: Qualifiers: Diabetes mellitus type: type 2 Diabetes mellitus fci insulin use: without buttermilk drier operator use Diabetes mellitus complication status: without complication Qualified Code(s): E11.9 - Type 2 diabetes mellitus without complications Code(s): E11.9 - Type 2 diabetes mellitus without complications Status: Chronic Assessment and Plan: A1c 7.4. The patient's blood glucose was reviewed on 11/09 Glucose remains elevated at times related to the steroids. Continue AccuCheks covering with sliding scale. Hypoglycemia protocol available as needed. Continue current medications. Continue diabetic pureed/mod thickened liquid diet (6) HTN (hypertension): Qualifiers: Hypertension type: unspecified Qualified Code(s): I10 - Essential (primary) hypertension Code(s): I10 - Essential (primary) hypertension Status: Chronic Assessment and Plan: Stable. BP reviewed on 11/09. BP remains well controlled. Monitor blood pressure. Continue lisinopril and amlodipine. (7) HLD (hyperlipidemia): Qualifiers: Hyperlipidemia type: unspecified Qualified Code(s): E78.5 - Hyperlipidemia, unspecified Code(s): E78.5 - Hyperlipidemia, unspecified Status: Chronic Assessment and Plan: Stable. LFTs noted with slight increase in AST Continue Crestor (8) Depression: Qualifiers: Depression Type: unspecified Qualified Code(s): F32.9 - Major depressive disorder, single episode, unspecified Code(s): F32.9 - Major depressive disorder, single episode, unspecified Status: Chronic Assessment and Plan: Stable Continue Sertraline PO. (9) Dementia: Code(s): F03.90 - Unspecified dementia without
[2020-11-09 23:44] LABS: Glucose Point of Care 288 (65-105)
[2020-11-10] VITALS: BP 127/67; PULSE 57; RESP 20; TEMP 36.1; O2SAT 92
[2020-11-10] MEDS: ALBUTEROL SULFATE (*SP) AEROSOL 1 PUFF 2 PUFF INHALATION ×3 (02:10→15:07)
[2020-11-10 04:00] VITALS: BP 124/54; PULSE 79; RESP 20; TEMP 36.4; O2SAT 91
[2020-11-10 06:35] LABS: Basophils Percent Auto 0.1 % (0.2-1.2); Hemoglobin 12.9 g/dL (14.0-18.0); Immature Granulocyte Absolute 0.13 K/mm3 (0.00-0.031); Immature Granulocyte Percent A 1.6 % (0-0.5); Lymphocytes Absolute Auto 1.55 K/mm3 (0.9-3.2); Lymphocytes Percent Auto 19.4 % (18.3-44.2); Mean Corpuscular HGB Conc 33.9 g/dl (32-36); Mean Corpuscular Hemoglobin 27.9 pg (26-34); Mean Corpuscular Volume 82.3 fl (80-100); Mean Platelet Volume 10.8 fl (7.4-10.4); Monocytes Absolute Auto 0.9 K/mm3 (0.1-0.6); Neutrophils Absolute Auto 5.4 K/mm3 (1.3-6.7); Neutrophils Percent Auto 67.9 % (45.5-73.1); Platelet Count Result 325 k/mm3 (150-375); Red Blood Count 4.62 M/mm3 (4.6-6.20); Red Cell Distribution Width 13.9 % (11.5-14.5)
[2020-11-10 07:04] LABS: Alanine Aminotransferase 38 U/L (4-50); Albumin Level 3.1 g/dL (3.5-5.1); Alkaline Phosphatase 47 U/L (38-126); Anion Gap 3 mmol/L (8-16); Aspartate Amino Transferase 40 U/L (17-59); Bilirubin,Total 0.6 mg/dL (0.2-1.3); Blood Urea Nitrogen 24 mg/dL (9-20); CRP 4.8 mg/dL (<1.0); Calcium 8.6 mg/dL (8.4-10.2); Carbon Dioxide 27 mmol/L (22-30); Chloride 109 mmol/L (98-107); Estimated CRCL calculation 47 ml/min; Estimated Glomerular Filt Rate > 60; Glucose 211 mg/dL (75-110); Lactate Dehydrogenase 837 U/L (313-618); Magnesium 1.9 mg/dL (1.6-2.3); Potassium 3.7 mmol/L (3.4-5.0); Sodium 139 mmol/L (137-145)
[2020-11-10 08:00] VITALS: BP 125/78; PULSE 77; RESP 18; TEMP 36.8; O2SAT 91
[2020-11-10 08:39] LABS: Glucose Point of Care 180 (65-105)
[2020-11-10 09:25] VITALS: O2SAT 91
[2020-11-10] MEDS: LORazepam (*CRX) 1 MG TABLET PO (09:26)
[2020-11-10] MEDS: ENOXAPARIN 40 MG/0.4 ML SYRINGE SUB-Q (09:26)
[2020-11-10 09:27] VITALS: PULSE 78
[2020-11-10] MEDS: METOPROLOL SUCCINATE EXT REL 50 MG TABCR PO (09:27)
[2020-11-10] MEDS: guaiFENesin 12 HR 600 MG TABCR PO (09:27)
[2020-11-10] MEDS: SERTRALINE HCL 50 MG TABLET PO (09:27)
[2020-11-10] MEDS: ASPIRIN 81 MG CHEWABLE TABLET PO (09:27)
[2020-11-10] MEDS: amLODIPine BESYLATE 5 MG TABLET PO (09:28)
[2020-11-10] MEDS: lisinopriL 20 MG TABLET PO (09:28)
[2020-11-10] MEDS: ROSUVASTATIN 10 MG TABLET PO (09:28)
[2020-11-10] MEDS: DEXAMETHASONE SOD PHOS INJ 4 MG/ML VIAL 6 MG IV PUSH (09:28)
--- NOTE | 2020-11-10 11:11 | PM.DS ---
DS: Admitting Diagnosis Admitting Diagnosis Admitting Diagnosis: Hypoxia DS: Discharge Diagnosis Discharge Diagnosis (1) Pneumonia due to 2019 novel coronavirus: Code(s): U07.1 - COVID-19; J12.82 - Pneumonia due to coronavirus disease 2019 Status: Acute Assessment and Plan: CT chest w/o contrast shows findings suggestive of COVID pneumonia, however, it may be prudent to continue course of antibiotics to treat aspiration pneumonia. Alert, not answering questions. Remdesivir completed 5 days on 11/09/20 Treated with Decadron Also treated with IV Zosyn Weaned O2 as toelrated. We continued supportive care with Tylenol and albuterol as needed Mental status improved (2) Hypoxia: Code(s): R09.02 - Hypoxemia Status: Acute Assessment and Plan: Likely secondary to COVID PNA but cannot rule out aspiration pneumonia given the history obtained Treated with supplemental O2 Continuous pulse oximetry. Weaned oxygen when possible. Treat for remdesivir and aspiration pna as noted above (3) COVID-19: Code(s): U07.1 - COVID-19 Status: Acute Assessment and Plan: Still with O2 requirement. Inflammatory markers trending down. We continued droplet isolation Supportive care with bronchodilators and tylenol PRN Treated with Decadron and Remedsivir (4) Altered mental status: Qualifiers: Altered mental status type: delirium Qualified Code(s): R41.0 - Disorientation, unspecified Code(s): R41.82 - Altered mental status, unspecified Status: Acute Assessment and Plan: Acute altered mental status 2/2 acute infection vs. worsening dementia? CT brain 11/04 showing no acute findings. 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 Chart review showing that patient has been noted to be nonverbal in the past. Patient felt to be at his baseline (5) Diabetes: Qualifiers: Diabetes mellitus type: type 2 Diabetes mellitus chcf insulin use: without medical terminologist use Diabetes mellitus complication status: without complication Qualified Code(s): E11.9 - Type 2 diabetes mellitus without complications Code(s): E11.9 - Type 2 diabetes mellitus without complications Status: Chronic Assessment and Plan: A1c 7.4. The patient's blood glucose was reviewed closely Glucose remains elevated at times related to steroids. AccuCheks covering with sliding scale. Hypoglycemia protocol was available as needed. Had a diabetic pureed/mod thickened liquid diet (6) HTN (hypertension): Qualifiers: Hypertension type: unspecified Qualified Code(s): I10 - Essential (primary) hypertension Code(s): I10 - Essential (primary) hypertension Status: Chronic Assessment and Plan: Stable. BP monitored closely. BP remains well controlled. We continued lisinopril and amlodipine. (7) HLD (hyperlipidemia): Qualifiers: Hyperlipidemia type: unspecified Qualified Code(s): E78.5 - Hyperlipidemia, unspecified Code(s): E78.5 - Hyperlipidemia, unspecified Status: Chronic Assessment and Plan: Stable. LFTs okay. We continued Crestor (8) Depression: Qualifiers: Depression Type: unspecified Qualified Code(s): F32.9 - Major depressive disorder, single episode, unspecified Code(s): F32.9 - Major depressive disorder, single episode, unspecified Status: Chronic Assessment and Plan: Stable We continued Sertraline PO. (9) Dementia: Code(s): F03.90 - Unspecified dementia without behavioral disturbance
[2020-11-10 12:00] VITALS: BP 147/90; PULSE 78; RESP 16; TEMP 36.9; O2SAT 94
[2020-11-10 12:23] LABS: Glucose Point of Care 222 (65-105)
[2020-11-10] MEDS: INSULIN ASPART (*BKC) 100 UNITS/ML SUB-Q (12:29)
== END 2020-11-10 15:45 | DRG 177 ==
LOC: ANHED 11-04 02:50 → ANH3MEDSUR 11-04 03:17
PROVIDERS: Physician Assistant; Admitting Provider Family Medicine; Emergency Provider Emergency Medicine; Visit Provider Internal Medicine
DX: U07.1 COVID-19 (principal); J12.82 Pneumonia due to coronavirus disease 2019; J69.0 Pneumonitis due to inhalation of food and vomit; J96.01 Acute respiratory failure with hypoxia; R41.0 Disorientation, unspecified; E11.9 Type 2 diabetes mellitus without complications; I10 Essential (primary) hypertension; E78.5 Hyperlipidemia, unspecified; F32.9 Major depressive disorder, single episode, unspecified; F03.90 Unspecified dementia, unspecified severity, without behavioral disturbance, psychotic disturbance, mood disturbance, and anxiety; Z86.73 Personal history of transient ischemic attack (TIA), and cerebral infarction without residual deficits
CPT/HCPCS: 36415; 51701; 70450; 71045; 71250; 80048; 80053; 81001; 82728; 83036; 83605; 83615; 83735; 84460; 85025; 85610; 85730; 86140; 87040; 92526; 92610; 93005; 94640; 96361; 96372; 96374; 99285; A9270; G0378; J0131; J1100; J1650; J1815; J2543; J7030; J7120

== ENCOUNTER 2020-11-11 03:28 | Emergency (ER) | payer MEDICARE, MEDICAID, SELFPAY ==
--- NOTE | ~2020-11-11 | XR_ITS ---
EXAMINATION: XR chest 1V portable INDICATION: Shortness of breath TECHNIQUE: Portable AP chest at 0405 hours COMPARISON: 11/03/2020 FINDINGS: The lung volumes are low. There are patchy opacities throughout all lung zones with interva l worsening, particularly in the right upper lung zone and left midlung zone. There is no pleural eff usion or pneumothorax. The cardiomediastinal silhouette is stable. Surgical changes are noted in the cervical spine. IMPRESSION: 1. Diffuse lung disease with interval worsening, consistent with pneumonia and/or pulmonary edema and /or acute respiratory distress syndrome (ARDS). Reviewed, dictated and finalized at location A. ATRIC PROGRAM COORDINATOR IMPRESSION: 1. Diffuse lung disease with interval worsening, consistent with pneumonia and/ or pulmonary edema and/or acute respiratory distress syndrome (ARDS).
[2020-11-11 03:29] VITALS: BP 119/76; PULSE 58; RESP 20; TEMP 36.6; O2SAT 95
[2020-11-11 04:11] LABS: Basophils Percent Auto 0.2 % (0.2-1.2); Hematocrit 41.1 % (42.0-52.0); Hemoglobin 13.6 g/dL (14.0-18.0); Immature Granulocyte Percent A 0.9 % (0-0.5); Lymphocytes Absolute Auto 1.74 K/mm3 (0.9-3.2); Lymphocytes Percent Auto 16.4 % (18.3-44.2); Mean Corpuscular HGB Conc 33.1 g/dl (32-36); Mean Corpuscular Hemoglobin 27.6 pg (26-34); Mean Corpuscular Volume 83.5 fl (80-100); Mean Platelet Volume 10.1 fl (7.4-10.4); Monocytes Absolute Auto 1.1 K/mm3 (0.1-0.6); Monocytes Percent Auto 10.4 % (2.6-8.5); Neutrophils Absolute Auto 7.6 K/mm3 (1.3-6.7); Neutrophils Percent Auto 72.1 % (45.5-73.1); Nucleated Red Blood Cells Perc 0.2 % (0.0-0.2); Platelet Count Result 390 k/mm3 (150-375); Red Blood Count 4.92 M/mm3 (4.6-6.20); White Blood Count 10.6 K/mm3 (4.5-10.0)
[2020-11-11 04:25] LABS: Anion Gap 4 mmol/L (8-16); Blood Urea Nitrogen 27 mg/dL (9-20); Calcium 8.8 mg/dL (8.4-10.2); Carbon Dioxide 28 mmol/L (22-30); Chloride 108 mmol/L (98-107); Estimated CRCL calculation 52 ml/min; Estimated Glomerular Filt Rate > 60; Glucose 209 mg/dL (75-110); Potassium 4.2 mmol/L (3.4-5.0); Sodium 140 mmol/L (137-145)
[2020-11-11 04:51] VITALS: PULSE 52; RESP 20; O2SAT 94
--- NOTE | 2020-11-11 05:12 | ED.GENADULT ---
HPI - General Adult General Chief complaint: Unspecified Stated complaint: covid Time Seen by Provider: 11/11/20 03:29 History of Present Illness HPI narrative: Patient is a 75-year-old male who presents the ER from the skilled nursing for concern of low O2 sat. Patient was discharged from [facility] on 11/10/2020 after being treated for Covid and possible aspiration pneumonia. He was discharged on antibiotics as well as Decadron. He was also discharged on a new home O2 requirement of 3 L nasal cannula. custodial could not obtain an O2 sat so they called EMS. Per EMS patient's O2 sat was in the mid 90s on 2 L. Patient is altered at his baseline. He has no complaints of pain. He does follow commands. Related Data Allergies Allergy/AdvReac Type Severity Reaction Status Date / Time atorvastatin [From Lipitor] Allergy Rash Verified 11/11/20 03:42 Iodine and Iodide Containing Allergy Rash Verified 11/11/20 03:42 Produc simvastatin Allergy Rash Verified 11/11/20 03:42 Sulfa (Sulfonamide Allergy Rash Verified 11/11/20 03:42 Antibiotics) Review of Systems Review of Systems: ROS unobtainable: Yes unobtainable due to medical condition [facility] Past Medical History Medical History (Updated 11/11/20 @ 05:48 by Lwe Amaya MD) Anxiety CHF (congestive heart failure) CVA (cerebral vascular accident) Depression Diabetes DVT (deep venous thrombosis) Dysphagia Generalized weakness Hyperlipidemia Hypertension Muscle weakness (generalized) Surgical History Surgical History (Updated 11/11/20 @ 05:35 by Lew Amaya MD) Surgical history unknown Social History Social History (Updated 11/11/20 @ 05:36 by Lew Amaya MD) Living arrangements: skilled nursing Additional living arrangements comments: [place] Exam Narrative: Exam Narrative: GENERAL: Chronically-appearing, thin, and in no acute distress. HEAD: Normocephalic, atraumatic. EYES: PERRL and EOMI. CHEST: Clear to auscultation. No respiratory distress. HEART: Bradycardic and regular. Normal peripheral pulses. ABDOMEN: Soft, nontender, nondistended. SKIN: Warm, dry, no rash. NEURO: Awake and alert, follows commands. PSYCH: Normal mood and affect. Course Course Emergency Course: Patient resting comfortably. No abnormal lung sounds. Chest x-ray abnormal but patient with recent abnormal CT scan consistent with Covid pneumonia. No increase O2 requirement. Continue home Decadron and Augmentin. custodial contacted and informed that patient has had no new oxygen requirement. Vital Signs Vital signs: Vital Signs Temperature 97.9 F 11/11/20 03:29 Pulse Rate 58 L 11/11/20 03:29 Respiratory Rate 20 11/11/20 03:29 Blood Pressure 119/76 11/11/20 03:29 Pulse Oximetry 95 11/11/20 03:29 Temperature 97.9 F 11/11/20 03:29 Pulse Rate 52 L 11/11/20 04:51 Respiratory Rate 20 11/11/20 04:51 Blood Pressure 119/76 11/11/20 03:29 Pulse Oximetry 94 11/11/20 04:51 Medical Decision Making Vital Signs Vital Signs: Vital Signs Temperature 97.9 F 11/11/20 03:29 Pulse Rate 58 L 11/11/20 03:29 Respiratory Rate 20 11/11/20 03:29 Blood Pressure 119/76 11/11/20 03:29 Pulse Oximetry 95 11/11/20 03:29 Temperature 97.9 F 11/11/20 03:29 Pulse Rate 52 L 11/11/20 04:51 Respiratory Rate 20 11/11/20 04:51 Blood Pressure 119/76 11/11/20 03:29 Pulse Oximetry 94 11/11/20 04:51 Lab Data Result diagrams: 11/11/20 04:06 11/11/20 04:06 Labs: Lab Results 11/11/20 11/11/20 Range/Units 04:06 04:06 WBC 10.6 H (4.5-10.0) K/mm3 RBC 4.92 (4.6-6.20) M/mm3 Hgb 13.6 L (14.0-18.0) g/dL Hct 41.1 L (42.0-52.0) % MCV 83.5 (80-100) fl MCH 27.6 (26-34) pg MCHC 33.1 (32-36) g/dl RDW 14.0 (11.5-14.5) % Plt Count 390 H (150-375) k/mm3 MPV 10.1 (7.4-10.4) fl Immature Gran % (Auto) 0.9 H (0-0.5) % Neut % (Auto) 72.1
[2020-11-11 07:15] VITALS: BP 116/74; PULSE 53; RESP 18; O2SAT 94
[2020-11-11 07:53] VITALS: BP 114/73; PULSE 47; RESP 18; O2SAT 94
== END 2020-11-11 07:54 ==
PROVIDERS: Emergency Provider Emergency Medicine
DX: U07.1 COVID-19 (principal); J12.82 Pneumonia due to coronavirus disease 2019; I11.0 Hypertensive heart disease with heart failure; I50.9 Heart failure, unspecified; E11.9 Type 2 diabetes mellitus without complications; E78.5 Hyperlipidemia, unspecified; Z86.73 Personal history of transient ischemic attack (TIA), and cerebral infarction without residual deficits; Z86.718 Personal history of other venous thrombosis and embolism
CPT/HCPCS: 36415; 71045; 80048; 85025; 99283

== ENCOUNTER 2021-09-12 05:44 | Emergency (ER) | payer MEDICARE, MEDICAID, SELFPAY ==
--- NOTE | ~2021-09-12 | CT_ITS ---
EXAMINATION: CT brain wo con, CT cervical spine wo con EXAM DATE: 09/12/2021 06:04 INDICATION: Fall, head injury. TECHNIQUE: Spiral CT of the head was performed without contrast. Axial, coronal and sagittal images were reviewed. Spiral CT of the cervical spine was performed without contrast. Axial images were rev iewed. Coronal and sagittal reformatted images were also reviewed. The dose-length product (DLP) fo r this examination was 605.33 (accession [id number]), 494.19 (accession [id number]) mGy-cm. The exposure was tailored according to patient size, and iterative reconstruction (ASIR) was used as additional dose reduction technique. Comparison is made to prior examination from 11/08/2020. FINDINGS: HEAD CT: Old thalamic and basal ganglia lacunar infarctions. There is no acute intraparenchymal hemor rhage. No evidence of intraparenchymal brain mass lesion. No evidence of acute infarction. There is extensive periventricular and subcortical hypodensity, nonspecific but probably related to small ves steven ischemic disease. There is moderate prominence of the sulci and ventricles related to cerebral atrophy. There is no mass effect or midline shift. There is no obstructive hydrocephalus suspected . There are no extra-axial collections. There are no acute calvarial fractures. The orbits are unr emarkable. Soft tissue is unremarkable. The visualized sinuses and mastoid air cells are well aerat ed. CERVICAL CT: C6-7 cervical fusion hardware. There is moderate disc disease at C5-6. There is no evide nce of acute cervical fracture. The odontoid process is intact. Pre-dens space is normal. Preverte bral soft tissue is normal. There are no soft tissue abnormalities identified. There is no disc spa ce widening or traumatic vertebral body subluxation suspected. Mild to moderate cervical arthropathy . A detailed level by level evaluation of spondylosis can be added as addendum if requested. IMPRESSION: 1. No acute intracranial findings or cervical fracture. 2. Old lacunar infarctions. 3. Age-related intracranial findings. Reviewed, dictated and finalized at location A. HICS COORDINATOR IMPRESSION: 1. No acute intracranial findings or cervical fracture. 2. Old lacunar infarctions. 3. Age-related intracranial findings.
--- NOTE | ~2021-09-12 | XR_ITS ---
EXAMINATION: XR hip BI 2V w AP pelvis EXAM DATE: 09/12/2021 06:46 INDICATION: Fall, pelvic pain. TECHNIQUE: Each hip imaged independently (separate right and also left hip) 'frog leg' and frontal p rojections for interpretation. Frontal projection pelvis. There is no prior study for comparison. FINDINGS: No radiographic evidence of hip avascular necrosis. There are no acute fractures or disloc ations identified. There is no subcutaneous gas. The soft tissue is unremarkable. There are no ra diopaque foreign bodies. IMPRESSION: 1. Pelvis, hip exam without acute osseous findings. 2. Mild to moderate osteoarthritis. Reviewed, dictated and finalized at location A. NISTRATIVE SUPPORT TECHNICIAN
--- NOTE | 2021-09-12 05:43 | ED.HEATRA ---
HPI - Head Injury General Chief complaint: Fall Stated complaint: glf on blood thinners (room mate covid+) resp prec Source: EMS Mode of arrival: EMS Limitations: dementia History of Present Illness HPI Narrative: The patient is a 76-year-old male with a history of CVA, hypertension, hyperlipidemia, congestive heart failure, diabetes who presents for evaluation of ground-level fall which was unwitnessed. Patient was found on the floor at [facility], where he resides. Patient was initially reporting right hip pain, but no pain with palpation on the hip on exam, is ranging the hip during her interview. Patient is alert and oriented to person, not to place or time which is his baseline. Patient takes daily aspirin, not on any other anticoagulation. Of note, patient's roommate is positive for Covid. Patient does have a history of Covid infection in October of this year. Additional history otherwise limited. Related Data Home Medications Medication Instructions Recorded Confirmed Artificial Tears (PF) 1 drp OPHTHALMIC (EYE) Q6H PRN #0 09/15/19 11/04/20 acetaminophen 650 mg PO Q6H PRN #0 09/15/19 11/04/20 amlodipine 5 mg PO DAILY 09/15/19 11/04/20 aspirin 81 mg PO DAILY #0 09/15/19 11/04/20 glipizide 5 mg PO DAILY 09/15/19 11/04/20 lisinopril 20 mg PO DAILY 09/15/19 11/04/20 lorazepam 1 mg PO BID 09/15/19 11/04/20 metoprolol succinate 50 mg PO DAILY 09/15/19 11/04/20 rosuvastatin 10 mg PO DAILY 09/15/19 11/04/20 sertraline 50 mg PO DAILY 09/15/19 11/04/20 trazodone 75 mg PO HS 09/15/19 11/04/20 cholecalciferol (vitamin D3) 1,250 mcg PO MONTHLY 09/15/20 11/04/20 Allergies Allergy/AdvReac Type Severity Reaction Status Date / Time Iodine and Iodide Containing Allergy Unknown Unknown Verified 09/12/21 05:52 Produc Sulfa (Sulfonamide Allergy Unknown Unknown Verified 09/12/21 05:52 Antibiotics) atorvastatin [From Lipitor] Allergy Unknown Verified 09/12/21 05:52 shellfish derived Allergy Unknown Verified 09/12/21 05:52 simvastatin Allergy Unknown Verified 09/12/21 05:52 IV Dye Allergy Unknown Uncoded 10/29/20 21:17 Review of Systems Review of Systems: ROS unobtainable: Yes unobtainable due to medical condition [facility] Past Medical History Medical History Anxiety CHF (congestive heart failure) CVA (cerebral vascular accident) Dementia Depression Depression Diabetes Diabetes DVT (deep venous thrombosis) Dysphagia Generalized weakness HLD (hyperlipidemia) HTN (hypertension) Hyperlipidemia Hypertension Muscle weakness (generalized) TIA (transient ischemic attack) Surgical History Surgical History Surgical history unknown Family History Family History Other Unknown family medical history Social History Social History Smoking status: Unknown if ever smoked Alcohol intake: unknown Substance use: unknown Substance use type: unknown Additional living arrangements comments: [place] Gender identity (if verbalized by the patient): Male Spiritual care concerns: No Exam Narrative: Nursing note and vitals reviewed. CONSTITUTIONAL: The patient appears well-developed and well-nourished. No distress. HEAD: Normocephalic and atraumatic. EYES: PERRL, EOMI, normal conjunctiva, anicteric EARS: External ears clear bilaterally, no hemotympanum MOUTH: OP clear, no erythema, exudates NECK: midline trachea, supple, FROM. No midline cervical spinal tenderness. CARDIOVASCULAR: Normal rate, regular rhythm, normal heart sounds and intact distal pulses. No murmurs, rubs, gallops. PULMONARY: Effort normal and breath sounds normal. No respiratory distress. The patient has no wheezes, rales, ronchi. No chest wall tenderness, crepitus or ecchymoses. ABDOMINAL: Soft. Nontender, nondistended
[2021-09-12 05:44] VITALS: BP 129/100; PULSE 56; RESP 18; TEMP 36.6; O2SAT 98
--- NOTE | 2021-09-12 06:10 | ECG_ITS ---
Measurements Intervals [place] Rate: 54 P: -4 [place]: 157 QRS: -33 QRSD: 80 T: -31 QT: 410 QTc: 389 Interpretive Statements SINUS BRADYCARDIA POOR R WAVE PROGRESSION, ANTERIOR LEADS BORDERLINE T WAVE ABNORMALITY- ANT/INF LEADS BASELINE ARTIFACT- I, II, III, AVR, AVL, AVF, V1-V6 BORDERLINE ECG Electronically Signed On 09-12-2021 11:58:03 TOOL GRINDER by Loyd Albarran D.O.
[2021-09-12 06:50] VITALS: BP 113/76; PULSE 56; RESP 18; O2SAT 98
[2021-09-12 06:50] LABS: Basophils Percent Auto 0.2 % (0.2-1.2); Eosinophils Absolute Auto 0.1 K/mm3 (0-0.3); Hematocrit 45.4 % (42.0-52.0); Hemoglobin 14.6 g/dL (14.0-18.0); Immature Granulocyte Absolute 0.02 K/mm3 (0.00-0.031); Immature Granulocyte Percent A 0.2 % (0-0.5); Lymphocytes Absolute Auto 3.53 K/mm3 (0.9-3.2); Lymphocytes Percent Auto 37.4 % (18.3-44.2); Mean Corpuscular HGB Conc 32.2 g/dl (32-36); Mean Corpuscular Hemoglobin 28.4 pg (26-34); Mean Corpuscular Volume 88.3 fl (80-100); Mean Platelet Volume 9.9 fl (7.4-10.4); Monocytes Absolute Auto 0.9 K/mm3 (0.1-0.6); Monocytes Percent Auto 9.1 % (2.6-8.5); Neutrophils Absolute Auto 4.9 K/mm3 (1.3-6.7); Neutrophils Percent Auto 52.1 % (45.5-73.1); Platelet Count Result 209 k/mm3 (150-375); Red Blood Count 5.14 M/mm3 (4.6-6.20); Red Cell Distribution Width 13.9 % (11.5-14.5); White Blood Count 9.4 K/mm3 (4.5-10.0)
[2021-09-12 07:01] LABS: Anion Gap 9 mmol/L (8-16); Blood Urea Nitrogen 19 mg/dL (9-20); Calcium 9.8 mg/dL (8.4-10.2); Carbon Dioxide 29 mmol/L (22-30); Chloride 104 mmol/L (98-107); Estimated CRCL calculation 42 ml/min; Estimated Glomerular Filt Rate > 60; Glucose 110 mg/dL (65-110); Potassium 4.5 mmol/L (3.4-5.0); Sodium 142 mmol/L (137-145)
[2021-09-12 07:14] VITALS: BP 114/76; PULSE 60; RESP 16; O2SAT 95
[2021-09-12 07:15] VITALS: RESP 16
--- NOTE | 2021-09-12 07:15 | PC.NURSE ---
Pt has been discharged,ambulance called,report given to Nurse Monk at facility, no further questions or concerns
--- NOTE | 2021-09-12 07:15 | PC.NURSE ---
[facility] accepted return to mt ETA [id number] Trip #[id number]
[2021-09-12 08:20] VITALS: BP 110/78; PULSE 65; RESP 16; O2SAT 97
== END 2021-09-12 08:20 ==
PROVIDERS: Emergency Provider Emergency Medicine; PCP Internal Medicine
DX: S09.90XA Unspecified injury of head, initial encounter (principal); I50.9 Heart failure, unspecified; I11.0 Hypertensive heart disease with heart failure; F03.90 Unspecified dementia, unspecified severity, without behavioral disturbance, psychotic disturbance, mood disturbance, and anxiety; E11.9 Type 2 diabetes mellitus without complications; E78.5 Hyperlipidemia, unspecified; F41.9 Anxiety disorder, unspecified; F32.9 Major depressive disorder, single episode, unspecified; Z86.16 Personal history of COVID-19; Z86.718 Personal history of other venous thrombosis and embolism; Z86.73 Personal history of transient ischemic attack (TIA), and cerebral infarction without residual deficits; Z79.84 Long term (current) use of oral hypoglycemic drugs; Z79.82 Long term (current) use of aspirin; M16.10 Unilateral primary osteoarthritis, unspecified hip; R00.1 Bradycardia, unspecified; R94.31 Abnormal electrocardiogram [ECG] [EKG]; W19.XXXA Unspecified fall, initial encounter
CPT/HCPCS: 36415; 70450; 72125; 73521; 80048; 85025; 93005; 99284

== ENCOUNTER 2023-06-06 08:32 | Emergency (ER) | payer OTHER, SELFPAY ==
[2023-06-06] VITALS (35 sets, daily range): BP systolic 111–152; BP diastolic 77–104; PULSE 52–113; RESP 16–18; TEMP 36.5; O2SAT 96–100
--- NOTE | ~2023-06-06 | CT_ITS ---
EXAMINATION: CT brain wo con INDICATION: Head injury COMPARISON: 08/23/2021 TECHNIQUE: Standard unenhanced head CT. The dose-length product (DLP) was 681.00 mGy-cm. The mA was a djusted according to patient size. Iterative reconstruction technique was employed. FINDINGS: Motion artifact limits the examination despite repeat imaging. There is no acute intraparen chymal hemorrhage. No evidence of mass lesion. No evidence of acute infarction. There is moderate per iventricular and subcortical hypodensity probably related to small vessel ischemic disease. There is moderate prominence of the sulci and ventricles related to cerebral atrophy. Intracranial calcified c erebral atherosclerosis is noted. There are no extra-axial collections. There is no mass effect or mi dline shift. The orbits and soft tissues are unremarkable. The visualized sinuses and mastoid air dari ls are well aerated. IMPRESSION: 1. No acute intracranial abnormality, study limited by motion artifact. 2. Age related findings. Reviewed, dictated and finalized at location B.
--- NOTE | ~2023-06-06 | XR_ITS ---
EXAMINATION: XR chest 1V portable DATE: 06/06/2023 09:36 INDICATION: Fall TECHNIQUE: frontal view of the chest was obtained. COMPARISON: Chest radiograph dated 11/11/2020 FINDINGS: Again seen are small lung volumes. Mild linear discoid atelectasis at the bilateral lung bases. No pu lmonary edema, pleural effusion or pneumothorax. Heart size is normal. Instrumented anterior and post erior spinal fusion at the lower cervical spine. IMPRESSION: 1. Small lung volumes with mild discoid atelectasis at the bilateral lung bases. Reviewed, dictated and finalized at location A. IMPRESSION: 1. Small lung volumes with mild discoid atelectasis at the bilateral lung bases .
--- NOTE | ~2023-06-06 | CT_ITS ---
EXAMINATION: CT cervical spine wo con DATE: 06/06/2023 09:18 INDICATION: Head injury TECHNIQUE: Computed tomography (CT) of the cervical spine was performed without intravenous contrast. The dose-length product (DLP) was 939.44 mGy-cm. Automated exposure control and iterative reconstruc tion technique were employed. COMPARISON: 09/12/2021 FINDINGS: Motion artifact slightly limits the examination. There are changes of anterior fusion at C6 -7. Bone alignment is normal. There is no fracture. There is mild loss of intervertebral disc space h eight at multiple levels in the cervical spine. The vertebral body heights are maintained. The odonto id process is intact. The prevertebral soft tissues are normal. There is moderate uncovertebral joint osteoarthritis at C5-6. Again noted is a chronic posterior paraspinal fluid collection without signi ficant change. IMPRESSION: 1. Mild cervical spondylosis without acute findings. 2. Chronic posterior paraspinal fluid collection without significant change. Reviewed, dictated and finalized at location B.
--- NOTE | 2023-06-06 08:38 | ECG_ITS ---
Measurements Intervals [place] Rate: 57 P: [place]: 0 QRS: -42 QRSD: 90 T: 0 QT: 261 QTc: 255 Interpretive Statements POOR QUALITY ECG BECAUSE OF BASELINE ARTIFACT SINUS BRADYCARDIA MARKED LEFT AXIS DEVIATION [QRS AXIS < -30] POOR R-WAVE PROGRESSION CONSIDER PREVIOUS INFERIOR RI ] COMPARED TO ECG 09/12/2021 06:19:11 NO OBVIOUS CHANGE HOWEVER ECG IS OF SUBOPTIMAL QUALITY Electronically Signed On 06-06-2023 15:53:32 CDT by Robinson Mendieta M.D.
[2023-06-06 08:51] LABS: Glucose Point of Care 73 mg/dl (65-105)
--- NOTE | 2023-06-06 09:09 | ED.FALL ---
HPI - Fall General Chief Complaint: Fall Stated Complaint: fall Time Seen by Provider: 06/06/23 08:37 Source: EMS, RN notes reviewed and old records reviewed Mode of arrival: EMS Limitations: dementia History of Present Illness HPI Narrative: This is a 78 year old male with history of dementia, hypertension, hyperlipidemia, DM who presents from [facility] for evaluation of a fall. EMS reports patient had an unwitnessed , and they state patient sitting in wheelchair and he sits leaning forward. It is reported that patient likely leaned forward falling out of the wheelchair. PAtient is able to state his name and denies any pain. Related Data Home Medications Medication Instructions Recorded Confirmed acetaminophen 325 mg tablet 650 mg PO Q6H PRN temp ##0 09/15/19 06/06/23 amlodipine 5 mg tablet 5 mg PO DAILY 09/15/19 06/06/23 aspirin 81 mg chewable tablet 81 mg PO DAILY ##0 09/15/19 06/06/23 dextran 70-hypromellose eye drops 1 drp ophthalmic (eye) Q6H PRN Dry 09/15/19 06/06/23 in a dropperette (Artificial Tears Eyes ##0 (PF) drops in a dropperette) glipizide 5 mg tablet 5 mg PO DAILY 09/15/19 06/06/23 lisinopril 20 mg tablet 20 mg PO DAILY 09/15/19 06/06/23 lorazepam 1 mg tablet 1 mg PO BID 09/15/19 11/04/20 metoprolol succinate 50 mg 50 mg PO DAILY 09/15/19 06/06/23 tablet,extended release 24 hr rosuvastatin 10 mg tablet 10 mg PO DAILY 09/15/19 06/06/23 sertraline 50 mg tablet 50 mg PO DAILY 09/15/19 06/06/23 trazodone 150 mg tablet 50 mg PO HS 09/15/19 06/06/23 cholecalciferol (vitamin D3) 1,250 1,250 mcg PO MONTHLY 09/15/20 06/06/23 mcg (50,000 unit) capsule metformin 500 mg tablet 250 mg PO BID 06/06/23 06/06/23 Allergies Allergy/AdvReac Type Severity Reaction Status Date / Time Iodine and Iodide Containing Allergy Unknown Unknown Verified 06/06/23 09:09 Produc Sulfa (Sulfonamide Allergy Unknown Unknown Verified 06/06/23 09:09 Antibiotics) atorvastatin [From Lipitor] Allergy Unknown Verified 06/06/23 09:09 shellfish derived Allergy Unknown Verified 06/06/23 09:09 simvastatin Allergy Unknown Verified 06/06/23 09:09 IV Dye Allergy Unknown Uncoded 12/24/21 08:30 Review of Systems Review of Systems: ROS unobtainable: Yes other (dementia) [facility] Past Medical History Medical History Anxiety Anxiety CHF (congestive heart failure) CHF (congestive heart failure) CVA (cerebral vascular accident) CVA (cerebral vascular accident) Dementia Depression Depression Depression Diabetes Diabetes Diabetes DVT (deep venous thrombosis) DVT (deep venous thrombosis) Dysphagia Dysphagia Generalized weakness Generalized weakness HLD (hyperlipidemia) HTN (hypertension) Hyperlipidemia Hyperlipidemia Hypertension Hypertension Muscle weakness (generalized) Muscle weakness (generalized) TIA (transient ischemic attack) Surgical History Surgical History Surgical history unknown Surgical history unknown Family History Family History Other Unknown family medical history Social History Social History Smoking status: Unknown if ever smoked Alcohol intake: unknown Substance use: unknown Substance use type: unknown Living arrangements: halfway Additional living arrangements comments: [place] Gender identity (if verbalized by the patient): Male Spiritual care concerns: No Exam Const: General: no acute distress and alert Other: oriented to person, at baseline HENMT: Head: normal to inspection Eyes: EOM: EOMs intact bilaterally Chest: Chest palpation & inspection: normal inspection of the chest Resp: Effort & Inspection: normal respiratory effort Auscultation: clear to auscultation bilaterally Cardio: Rate: regular rate Rhythm: regular rhythm Heart
[2023-06-06 09:37] LABS: Alveolar/Arterial O2 Gradient 30.2 mmHg; Base Excess ABG 1.6 mEq/l (+/-2.0); Carboxyhemoglobin 1.3 % THb (0-2.0); Fractional Inspired Oxygen 21 %; HCO3 ABG 26.5 mEq/l (22.0-26.0); Methemoglobin ABG 0.3 %THb (0-1.5); Oxygen Content ABG 17.9 %vol (16.0-22.0); Oxygen Saturation ABG 93.7 % (95.0-100.0); Oxyhemoglobin 92.2 % THb (90.0-100.0); PO2 FiO2 Ratio Arterial Blood 3.24 %; Reduced Hemoglobin 6.2 %THb (0-5.0); Total Hemoglobin 13.8 g/dL (12.0-18.0); pH ABG 7.408 (7.350-7.450)
[2023-06-06 09:38] LABS: Device ROOM AIR; Modified Allen's Test Pass; Site Drawn RIGHT RADIAL
[2023-06-06 10:31] LABS: Basophils Percent Auto 0.2 % (0.2-1.2); Eosinophils Absolute Auto 0.1 K/mm3 (0-0.3); Eosinophils Percent Auto 0.4 % (0-4.4); Hematocrit 44.1 % (42.0-52.0); Hemoglobin 13.9 g/dL (14.0-18.0); Immature Granulocyte Absolute 0.02 K/mm3 (0.00-0.031); Immature Granulocyte Percent A 0.2 % (0-0.5); Lymphocytes Absolute Auto 6.05 K/mm3 (0.9-3.2); Lymphocytes Percent Auto 53.1 % (18.3-44.2); Mean Corpuscular HGB Conc 31.5 g/dl (32-36); Mean Corpuscular Hemoglobin 27.3 pg (26-34); Mean Corpuscular Volume 86.5 fl (80-100); Mean Platelet Volume 10.1 fl (7.4-10.4); Monocytes Absolute Auto 0.8 K/mm3 (0.1-0.6); Neutrophils Absolute Auto 4.5 K/mm3 (1.3-6.7); Neutrophils Percent Auto 39.1 % (45.5-73.1); Platelet Count Result 238 k/mm3 (150-375); Red Cell Distribution Width 14.5 % (11.5-14.5); White Blood Count 11.4 K/mm3 (4.5-10.0)
[2023-06-06 10:48] LABS: Atypical Lymphocytes Present; Platelet Estimate Adequate (Adequate); Schistocytes None Seen (NORMAL)
--- NOTE | 2023-06-06 10:54 | PC.NURSE ---
2nd green top sent to lab
[2023-06-06 11:15] LABS: Appearance Urine Cloudy (Clear); Bacteria Urine 4+ /hpf; Bilirubin Urine Negative (Negative); Blood Urine 1+ (Negative); Color Urine Yellow (Yellow); Glucose Urine UA Negative (Negative); Ketones Urine Negative (Negative); Leukocyte Esterase Ur 2+ LEU/UL (Negative); Need Manual Microscopic Reviewed; Nitrate Urine Positive (Negative); Protein Urine Negative (Negative); Specific Grav Ur 1.021 (1.001-1.035); Squamous Epithelial Cell Urine Occasional /hpf (Few); WBC Urine 21-50 /hpf; pH Urine 5.5 (5.0-9.0)
[2023-06-06 11:16] LABS: Add Urine Microscopic? YES
[2023-06-06 11:16] LABS: Alanine Aminotransferase 16 U/L (6-50); Albumin Level 4.4 g/dL (3.5-5.1); Alkaline Phosphatase 60 U/L (38-126); Anion Gap 8 mmol/L (8-16); Aspartate Amino Transferase 27 U/L (17-59); Bilirubin,Total 0.4 mg/dL (0.2-1.3); Blood Urea Nitrogen 17 mg/dL (9-20); Calcium 9.2 mg/dL (8.4-10.2); Carbon Dioxide 28 mmol/L (22-30); Chloride 106 mmol/L (98-107); Estimated CRCL calculation 40 ml/min; Estimated Glomerular Filt Rate > 60; Glucose 62 mg/dL (65-110); Potassium 4.2 mmol/L (3.4-5.0); Sodium 142 mmol/L (137-145)
[2023-06-06 12:38] LABS: Glucose Point of Care 47 mg/dl (65-105)
--- NOTE | 2023-06-06 12:43 | PC.NURSE ---
Pt has had 2 orange juices, pudding, and apple sauce to bring sugar up.
[2023-06-06 13:05] LABS: Glucose Point of Care 44 mg/dl (65-105)
[2023-06-06 13:27] LABS: Glucose Point of Care 89 mg/dl (65-105)
[2023-06-06 14:26] LABS: Glucose Point of Care 131 mg/dl (65-105)
== END 2023-06-06 16:18 ==
PROVIDERS: Emergency Provider General Practice
DX: Z04.3 Encounter for examination and observation following other accident (principal); E11.649 Type 2 diabetes mellitus with hypoglycemia without coma; N39.0 Urinary tract infection, site not specified; F03.90 Unspecified dementia, unspecified severity, without behavioral disturbance, psychotic disturbance, mood disturbance, and anxiety; I11.0 Hypertensive heart disease with heart failure; I50.9 Heart failure, unspecified; E78.5 Hyperlipidemia, unspecified; F32.A Depression, unspecified; Z99.3 Dependence on wheelchair; Z86.718 Personal history of other venous thrombosis and embolism; Z86.73 Personal history of transient ischemic attack (TIA), and cerebral infarction without residual deficits; Z79.82 Long term (current) use of aspirin; Z79.84 Long term (current) use of oral hypoglycemic drugs; R94.31 Abnormal electrocardiogram [ECG] [EKG]; R00.1 Bradycardia, unspecified; M47.812 Spondylosis without myelopathy or radiculopathy, cervical region; W10.9XXA Fall (on) (from) unspecified stairs and steps, initial encounter
CPT/HCPCS: 36415; 36600; 70450; 71045; 72125; 80053; 81001; 82375; 82805; 82948; 83050; 85025; 87077; 87086; 87186; 93005; 96365; 99284; J0696

== ENCOUNTER 2023-09-23 16:40 | Emergency (ER) | payer OTHER, SELFPAY ==
--- NOTE | ~2023-09-23 | CT_ITS ---
EXAMINATION: CT brain wo con DATE: 09/23/2023 18:41 INDICATION: fall . TECHNIQUE: Computed tomography (CT) of the head was performed without intravenous contrast. The mA wa s adjusted according to patient size. Iterative reconstruction technique was employed. The dose-lengt h product was 1967.33 mGy-cm. COMPARISON: 06/06/2023. FINDINGS: Significant motion artifact is present which persisted after repeat imaging attempts and manual stabi lization. No large volume intracranial hemorrhage detected. No acute large vessel infarct detected. Moderate at rophy and chronic white matter change. Note, significant pathology could be missed given the degree o f motion artifact. IMPRESSION: Examination limited by significant motion artifact. Recommend repeat imaging after adequate sedation. Reviewed, dictated and finalized at location K. GER ONCOLOGY IMPRESSION: Examination limited by significant motion artifact. Recommend repeat imaging af ter adequate sedation.
--- NOTE | ~2023-09-23 | CT_ITS ---
EXAMINATION: CT brain wo con DATE: 09/23/2023 20:00 INDICATION: fall . TECHNIQUE: Computed tomography (CT) of the head was performed without intravenous contrast. The mA wa s adjusted according to patient size. Iterative reconstruction technique was employed. The dose-lengt h product was 681.00 mGy-cm. COMPARISON: Same date at 6:27 PM. FINDINGS: Significant motion artifact persists despite administration of sedative. No definite acute intracranial hemorrhage or extra-axial fluid collection. No severe hydrocephalus, definite mass, or severe herniation. No acute large vessel ischemic infarct. Unremarkable dural venous sinus attenuation, partially visualized. No acute osseous abnormality within the constraints of motion artifact. The aerated spaces are clear. Moderate atrophy and chronic white matter change. Atherosclerotic intracranial calcification. IMPRESSION: Significant motion artifact persists despite sedation, such that subtle pathology could be missed. No definite acute intracranial process. Reviewed, dictated and finalized at [facility] K. D CROP FARMWORKER IMPRESSION: Significant motion artifact persists despite sedation, such that subtle patholo gy could be missed. No definite acute intracranial process.
--- NOTE | ~2023-09-23 | XR_ITS ---
EXAM: XR pelvis 1-2V DATE: 09/23/2023 17:59 HISTORY: fall . COMPARISON: 09/12/2021. FINDINGS: Normal mineralization. No fracture or dislocation. No lytic or blastic lesion. Lumbar dege nerative disc disease. Bilateral hip osteoarthritic arthritis. No erosion or periosteal change. Soft tissues within normal limits. IMPRESSION: No acute osseous finding in the pelvis. Reviewed, dictated and finalized at location K. HANDLER OR TRAINER
--- NOTE | ~2023-09-23 | XR_ITS ---
EXAMINATION: XR chest 1V portable Exam Date/Time: 09/23/2023 17:50 INSPECTOR AND TESTER HISTORY: fall, BEST IMAGES POSSIBLE Comparison: 06/06/2023. RESULT: Lines, tubes, and devices: Cervical fusion hardware. Lungs and pleura: Low volumes, with crowding. Cardiomediastinal silhouette: Stable. Other: No acute osseous or upper abdominal finding. IMPRESSION: No acute cardiopulmonary process. Reviewed, dictated and finalized at location K. ECTOR AND TESTER
[2023-09-23 16:55] VITALS: BP 115/81; PULSE 74; RESP 17; TEMP 36.7; O2SAT 98
[2023-09-23 17:00] VITALS: BP 111/71; PULSE 73; RESP 23; O2SAT 98
--- NOTE | 2023-09-23 17:33 | ED.FALL ---
HPI - Fall General Chief Complaint: Fall Stated Complaint: fall out of bed Time Seen by Provider: 09/23/23 17:14 Source: patient and EMS Mode of arrival: EMS Limitations: dementia (CVA) History of Present Illness HPI Narrative: This is a 78 year old male that presents to the ER for an unwitnessed fall from nursing facility. Patient is unable to give any history. No obvious signs of trauma on exam. He does not appear to be in any distress or endorse any pain. Related Data Home Medications Medication Instructions Recorded Confirmed acetaminophen 325 mg tablet 650 mg PO Q6H PRN temp ##0 09/15/19 06/06/23 amlodipine 5 mg tablet 5 mg PO DAILY 09/15/19 06/06/23 aspirin 81 mg chewable tablet 81 mg PO DAILY ##0 09/15/19 06/06/23 dextran 70-hypromellose eye drops 1 drp ophthalmic (eye) Q6H PRN Dry 09/15/19 06/06/23 in a dropperette (Artificial Tears Eyes ##0 (PF) drops in a dropperette) glipizide 5 mg tablet 5 mg PO DAILY 09/15/19 06/06/23 lisinopril 20 mg tablet 20 mg PO DAILY 09/15/19 06/06/23 lorazepam 1 mg tablet 1 mg PO BID 09/15/19 11/04/20 metoprolol succinate 50 mg 50 mg PO DAILY 09/15/19 06/06/23 tablet,extended release 24 hr rosuvastatin 10 mg tablet 10 mg PO DAILY 09/15/19 06/06/23 sertraline 50 mg tablet 50 mg PO DAILY 09/15/19 06/06/23 trazodone 150 mg tablet 50 mg PO HS 09/15/19 06/06/23 cholecalciferol (vitamin D3) 1,250 1,250 mcg PO MONTHLY 09/15/20 06/06/23 mcg (50,000 unit) capsule metformin 500 mg tablet 250 mg PO BID 06/06/23 06/06/23 Allergies Allergy/AdvReac Type Severity Reaction Status Date / Time Iodine and Iodide Containing Allergy Unknown Unknown Verified 06/06/23 09:09 Produc Sulfa (Sulfonamide Allergy Unknown Unknown Verified 06/06/23 09:09 Antibiotics) atorvastatin [From Lipitor] Allergy Unknown Verified 06/06/23 09:09 shellfish derived Allergy Unknown Verified 06/06/23 09:09 simvastatin Allergy Unknown Verified 06/06/23 09:09 IV Dye Allergy Unknown Uncoded 12/24/21 08:30 Review of Systems Review of Systems: ROS unobtainable: Yes unobtainable due to medical condition [facility] Past Medical History Medical History Anxiety Anxiety CHF (congestive heart failure) CHF (congestive heart failure) CVA (cerebral vascular accident) CVA (cerebral vascular accident) Dementia Depression Depression Depression Diabetes Diabetes Diabetes DVT (deep venous thrombosis) DVT (deep venous thrombosis) Dysphagia Dysphagia Generalized weakness Generalized weakness HLD (hyperlipidemia) HTN (hypertension) Hyperlipidemia Hyperlipidemia Hypertension Hypertension Muscle weakness (generalized) Muscle weakness (generalized) TIA (transient ischemic attack) Surgical History Surgical History Surgical history unknown Surgical history unknown Family History Family History Other Unknown family medical history Social History Social History Smoking status: Unknown if ever smoked Alcohol intake: unknown Substance use: unknown Substance use type: unknown Living arrangements: [facility] Additional living arrangements comments: [facility] Gender identity (if verbalized by the patient): Male Spiritual care concerns: No Exam Narrative: GENERAL: Elderly, thin, and in no acute distress. HEAD: Normocephalic, atraumatic. EYES: PERRLA and EOMI. ENT: Nares clear, no rhinorrhea or epistaxis. Mucous membranes moist. Oropharynx without tonsillar hypertrophy exudate or other lesions. Bilateral TMs pearly hoffman non-bulging NECK: Supple. No adenopathy or masses. No midline spinal tenderness CHEST: Clear to auscultation. No respiratory distress. No wheezes rales or rhonchi HEART: Regular rate and rhythm. No murmur heard. Normal peripheral pulses. EXTREMITIES: Normal range of
--- NOTE | 2023-09-23 17:34 | ECG_ITS ---
Measurements Intervals [place] Rate: 76 P: 57 AL: 179 QRS: -35 QRSD: 73 T: 1 QT: 385 QTc: 434 Interpretive Statements SINUS RHYTHM WITH OCCASIONAL VENTRICULAR PREMATURE COMPLEXES LOW QRS VOLTAGE IN PRECORDIAL LEADS [QRS DEFLECTION < 1.0 mV IN CHEST LEADS] PROBABLE OLD aNTERIOR MYOCARDIAL INFARCTION PROBABLE OLD iNFERIOR MYOCARDIAL INFARCTION COMPARED TO ECG 06/06/2023 08:56:25 SINUS RHYTHM NOW PRESENT Electronically Signed On 09-23-2023 20:25:42 FACTORER by Myriam Vallejo M.D.
[2023-09-23 18:00] VITALS: BP 128/80; PULSE 70; RESP 20; O2SAT 98
[2023-09-23 18:34] LABS: Basophils Percent Auto 0.3 % (0.2-1.2); Eosinophils Absolute Auto 0.1 K/mm3 (0-0.3); Eosinophils Percent Auto 1.1 % (0-4.4); Hematocrit 38.4 % (42.0-52.0); Hemoglobin 12.4 g/dL (14.0-18.0); Immature Granulocyte Absolute 0.01 K/mm3 (0.00-0.031); Immature Granulocyte Percent A 0.1 % (0-0.5); Lymphocytes Absolute Auto 3.63 K/mm3 (0.9-3.2); Lymphocytes Percent Auto 45.7 % (18.3-44.2); Mean Corpuscular HGB Conc 32.3 g/dl (32-36); Mean Corpuscular Hemoglobin 27.3 pg (26-34); Mean Corpuscular Volume 84.4 fl (80-100); Mean Platelet Volume 9.6 fl (7.4-10.4); Monocytes Percent Auto 12.2 % (2.6-8.5); Neutrophils Absolute Auto 3.2 K/mm3 (1.3-6.7); Neutrophils Percent Auto 40.6 % (45.5-73.1); Platelet Count Result 200 k/mm3 (150-375); Red Blood Count 4.55 M/mm3 (4.6-6.20); Red Cell Distribution Width 14.4 % (11.5-14.5); White Blood Count 7.9 K/mm3 (4.5-10.0)
[2023-09-23 18:47] LABS: Alanine Aminotransferase 11 U/L (6-50); Albumin Level 3.9 g/dL (3.5-5.1); Alkaline Phosphatase 51 U/L (38-126); Anion Gap 7 mmol/L (8-16); Aspartate Amino Transferase 23 U/L (17-59); Bilirubin,Total 0.5 mg/dL (0.2-1.3); Blood Urea Nitrogen 21 mg/dL (9-20); Calcium 9.1 mg/dL (8.4-10.2); Carbon Dioxide 28 mmol/L (22-30); Chloride 101 mmol/L (98-107); Estimated CRCL calculation 36 ml/min; Estimated Glomerular Filt Rate 60; Glucose 74 mg/dL (65-110); Potassium 4.4 mmol/L (3.4-5.0); Sodium 136 mmol/L (137-145)
[2023-09-23 19:00] VITALS: BP 104/69; PULSE 74; RESP 18; O2SAT 96
[2023-09-23] MEDS: LORazepam INJ (*CRX) 2 MG/ML VIAL 1 MG IV PUSH (19:04)
[2023-09-23] MEDS: SODIUM CHLORIDE 0.9% IV 500 ML 250 ML IV CONT (19:04)
[2023-09-23 19:20] LABS: Appearance Urine Cloudy (Clear); Bacteria Urine 4+ /hpf; Bilirubin Urine Negative (Negative); Blood Urine 2+ (Negative); Color Urine Yellow (Yellow); Glucose Urine UA Negative (Negative); Ketones Urine Negative (Negative); Leukocyte Esterase Ur 3+ LEU/UL (Negative); Need Manual Microscopic Reviewed; Nitrate Urine Positive (Negative); Non Pathogenic Casts 0-2; Protein Urine Negative (Negative); Specific Grav Ur 1.012 (1.001-1.035); Squamous Epithelial Cell Urine Few /hpf (Few); WBC Urine 21-50 /hpf; pH Urine 6.5 (5.0-9.0)
[2023-09-23 19:23] LABS: Add Urine Microscopic? YES
[2023-09-23 20:00] VITALS: BP 130/85; PULSE 78; RESP 22; O2SAT 99
--- NOTE | 2023-09-23 22:38 | PC.NURSE ---
Pts daughter and POA, Juancarlos Waldron, called and provided with update.
[2023-09-24 00:30] VITALS: BP 108/79; PULSE 89; RESP 12; O2SAT 100
== END 2023-09-24 00:31 ==
PROVIDERS: Emergency Provider Physician Assistant
DX: N39.0 Urinary tract infection, site not specified (principal); E86.0 Dehydration; F41.9 Anxiety disorder, unspecified; I11.0 Hypertensive heart disease with heart failure; I50.9 Heart failure, unspecified; F32.A Depression, unspecified; F03.90 Unspecified dementia, unspecified severity, without behavioral disturbance, psychotic disturbance, mood disturbance, and anxiety; E11.9 Type 2 diabetes mellitus without complications; Z86.718 Personal history of other venous thrombosis and embolism; E78.5 Hyperlipidemia, unspecified; Z79.84 Long term (current) use of oral hypoglycemic drugs; W19.XXXA Unspecified fall, initial encounter
CPT/HCPCS: 36415; 70450; 71045; 72170; 80053; 81001; 85025; 87077; 87086; 87186; 93005; 96361; 96374; 99284; J2060; J7040

== ENCOUNTER 2023-11-27 01:40 | Emergency (ER) | payer MEDICARE, MEDICAID, SELFPAY ==
--- NOTE | ~2023-11-27 | CT_ITS ---
CT head without contrast Indication: Status post fall COMPARISON: 09/23/2023 Technique: Serial scans were obtained through the brain without the administration of contrast. Dose reduction technique was used on this scan by utilizing automated exposure control and iterative recon struction technique. The dose-length product (DLP) was 605.33 mGy-cm. Findings: There is no evidence of intracranial hemorrhage, mass lesion, or acute infarct. The ventri cles and subarachnoid spaces are dilated, consistent with moderate atrophy. Low attenuation regions are seen within the periventricular white matter bilaterally, likely representing changes from chroni c microvascular ischemic disease. There is no evidence of edema, mass effect or midline shift. The visualized paranasal sinuses and mastoid air cells are clear. Impression: No intracranial hemorrhage, mass, or acute infarct. Atrophy and chronic white matter changes, as above. Reviewed, dictated and finalized at [facility]. R WINDER Impression: No intracranial hemorrhage, mass, or acute infarct. Atrophy and chronic white matter changes, as above.
--- NOTE | ~2023-11-27 | CT_ITS ---
Noncontrast CT scan of the cervical spine Technique: Multiple contiguous axial [address] images of the cervical spine were obtained and rec onstructed in 2D sagittal and coronal planes on the acquisition scanner. Dose reduction technique was used on this scan by utilizing automated exposure control, adjustment of the mA and/or kV according to patient size. The dose-length product (DLP) was 397.30 mGy-cm. Clinical History: Pain COMPARISON: 06/06/2023 Findings: No acute fracture or subluxation identified. There is anterior posterior fusion from C6 to C7. There is severe degenerative disc narrowing at C5-C6. There are probable bilateral neural foramin al narrowing at C5-C6. No prevertebral soft tissue swelling. There is a 7.5 cm ovoid fluid collection in the posterior paravertebral soft tissues, most likely large postoperative seroma, similar to prio r exam. Impression: No fracture or subluxation of the cervical spine. Anterior and posterior fusion from C6 to C7. Severe degenerative disc narrowing at C5-C6. Large posterior paravertebral fluid collection, similar to prior exam, most likely large postoperativ e seroma. Reviewed, dictated and finalized at [facility]. KER OUT Impression: No fracture or subluxation of the cervical spine. Anterior and posterior fusion from C6 to C7. Severe degenerative disc narrowing at C5-C6. Large posterior paravertebral fluid collection, similar to prior exam, most lik claudette large postoperative seroma.
[2023-11-27 01:39] VITALS: BP 109/67; PULSE 67; RESP 14; TEMP 36.6; O2SAT 97
--- NOTE | 2023-11-27 02:28 | ED.GENADULT ---
HPI - General Adult General Chief complaint: Fall Stated complaint: GLF WITH NO COMPLAINTS Time Seen by Provider: 11/27/23 02:07 History of Present Illness HPI narrative: patient is a 78-year-old gentleman who presents emergency department with chief complaint of fall. Patient is a resident of [place] and was found laying on the floor patient's bed is approximately 1/2 feet off the ground patient's normal baseline but alert oriented head to wood and continues to be at his baseline neurological status. Patient is on 81 mg aspirin the patient was not found to have any signs of trauma per EMS on primary and secondary survey Related Data Home Medications Medication Instructions Recorded Confirmed acetaminophen 325 mg tablet 650 mg PO Q6H PRN temp ##0 09/15/19 06/06/23 amlodipine 5 mg tablet 5 mg PO DAILY 09/15/19 06/06/23 aspirin 81 mg chewable tablet 81 mg PO DAILY ##0 09/15/19 06/06/23 dextran 70-hypromellose eye drops 1 drp ophthalmic (eye) Q6H PRN Dry 09/15/19 06/06/23 in a dropperette (Artificial Tears Eyes ##0 (PF) drops in a dropperette) glipizide 5 mg tablet 5 mg PO DAILY 09/15/19 06/06/23 lisinopril 20 mg tablet 20 mg PO DAILY 09/15/19 06/06/23 lorazepam 1 mg tablet 1 mg PO BID 09/15/19 11/04/20 metoprolol succinate 50 mg 50 mg PO DAILY 09/15/19 06/06/23 tablet,extended release 24 hr rosuvastatin 10 mg tablet 10 mg PO DAILY 09/15/19 06/06/23 sertraline 50 mg tablet 50 mg PO DAILY 09/15/19 06/06/23 trazodone 150 mg tablet 50 mg PO HS 09/15/19 06/06/23 cholecalciferol (vitamin D3) 1,250 1,250 mcg PO MONTHLY 09/15/20 06/06/23 mcg (50,000 unit) capsule metformin 500 mg tablet 250 mg PO BID 06/06/23 06/06/23 Allergies Allergy/AdvReac Type Severity Reaction Status Date / Time Iodine and Iodide Containing Allergy Unknown Unknown Verified 11/27/23 01:47 Produc Sulfa (Sulfonamide Allergy Unknown Unknown Verified 11/27/23 01:47 Antibiotics) atorvastatin [From Lipitor] Allergy Unknown Verified 11/27/23 01:47 shellfish derived Allergy Unknown Verified 11/27/23 01:47 simvastatin Allergy Unknown Verified 11/27/23 01:47 IV Dye Allergy Unknown Uncoded 12/24/21 08:30 Review of Systems Review of Systems: A 10 system review of systems was completed on the patient and is negative except for what is stated in the HPI. Nursing and ancillary documentation was reviewed. PMFSH Past Medical History Medical History Anxiety Anxiety CHF (congestive heart failure) CHF (congestive heart failure) CVA (cerebral vascular accident) CVA (cerebral vascular accident) Dementia Depression Depression Depression Diabetes Diabetes Diabetes DVT (deep venous thrombosis) DVT (deep venous thrombosis) Dysphagia Dysphagia Generalized weakness Generalized weakness HLD (hyperlipidemia) HTN (hypertension) Hyperlipidemia Hyperlipidemia Hypertension Hypertension Muscle weakness (generalized) Muscle weakness (generalized) TIA (transient ischemic attack) Surgical History Surgical History Surgical history unknown Surgical history unknown Family History Family History Other Unknown family medical history Social History Social History Smoking status: Unknown if ever smoked Alcohol intake: unknown Substance use: unknown Substance use type: unknown Living arrangements: long-term Additional living arrangements comments: [place] Gender identity (if verbalized by the patient): Male Spiritual care concerns: No Exam Narrative: GENERAL: Well-appearing, well-nourished, and in no acute distress. HEAD: Normocephalic, atraumatic. EYES: PERRLA and EOMI. ENT: Nares clear, no rhinorrhea or epistaxis. Mucous membranes moist. NECK: Supple. CHEST: Clear to au
[2023-11-27 03:24] VITALS: BP 106/71; PULSE 68; RESP 16; O2SAT 95
[2023-11-27 04:15] VITALS: BP 103/67; PULSE 70; RESP 16; O2SAT 94
== END 2023-11-27 03:20 ==
PROVIDERS: Emergency Provider Emergency Medicine
DX: Z04.3 Encounter for examination and observation following other accident (principal); F03.90 Unspecified dementia, unspecified severity, without behavioral disturbance, psychotic disturbance, mood disturbance, and anxiety; I50.9 Heart failure, unspecified; I11.0 Hypertensive heart disease with heart failure; E11.9 Type 2 diabetes mellitus without complications; E78.5 Hyperlipidemia, unspecified; Z86.718 Personal history of other venous thrombosis and embolism; Z86.73 Personal history of transient ischemic attack (TIA), and cerebral infarction without residual deficits; Z79.82 Long term (current) use of aspirin; Z79.84 Long term (current) use of oral hypoglycemic drugs; W06.XXXA Fall from bed, initial encounter
CPT/HCPCS: 70450; 72125; 99284

== ENCOUNTER 2023-12-13 14:11 | Inpatient (IN) | payer MEDICARE, MEDICAID, SELFPAY ==
[2023-12-13] VITALS (20 sets, daily range): BP systolic 69–181; BP diastolic 31–140; PULSE 102–130; RESP 13–24; TEMP 37.3; O2SAT 88–99; BMI 20.6
--- NOTE | ~2023-12-13 | XR_ITS ---
XR abdomen gastric tube rechec INDICATION: Evaluate NG tube position. TECHNIQUE: Limited KUB perform for evaluating NG tube . COMPARISON: No prior studies for comparison. FINDINGS: NG tube tip in the stomach. Visualized bowel gas pattern is unremarkable. IMPRESSION: 1: NG tube tip in the stomach. Reviewed, dictated and finalized at location A. ORATE PHYSICAL SECURITY SUPERVISOR
--- NOTE | ~2023-12-13 | US_ITS ---
EXAMINATION: US venous doppler UE LT DATE: 12/22/2023 09:23 INDICATION: Left upper limb edema. TECHNIQUE: Grayscale ultrasound images without and with compression and Doppler ultrasound images of the left upper extremity veins were obtained. COMPARISON: Ultrasound 09/18/2019 FINDINGS: The visualized portions of the left internal jugular vein, subclavian vein, axillary vein, brachial v eins, basilic vein, and ulnar vein are patent. There is thrombus in the left cephalic and left radial veins. IMPRESSION: 1. Deep vein thrombosis involving the left radial vein. 2. Superficial vein thrombosis involving the left cephalic vein. Reviewed, dictated and finalized at location E. R COACH BUS DRIVER
--- NOTE | ~2023-12-13 | XR_ITS ---
EXAMINATION: XR barium swallow modified DATE: 12/19/2023 11:38 INDICATION: Dysphagia. TECHNIQUE: The patient was given barium-containing material of multiple consistencies to swallow by t he speech pathologist while I performed fluoroscopy. Fluoroscopy exposure time was 1.2 minutes. The n umber of fluoroscopy images saved to the PACS was 1. Dose-area product was 1.689 Gy-cm^2. FINDINGS: There are delayed swallows with spillover from the base of the tongue into the pyriform sinuses prior to swallows. There is reduced laryngeal elevation, reduced tongue base retraction, and laryngeal pen etration. IMPRESSION: 1. Laryngeal penetration. 2. Please refer to the speech therapy report for recommendations. Reviewed, dictated and finalized at location A. IGN EXCHANGE STUDENT COORDINATOR
--- NOTE | ~2023-12-13 | XR_ITS ---
XR abdomen gastric tube insert INDICATION: Evaluate NG tube position. TECHNIQUE: Limited KUB perform for evaluating NG tube . COMPARISON: No prior studies for comparison. FINDINGS: NG tube tip in the stomach. Visualized bowel gas pattern is unremarkable. IMPRESSION: 1: NG tube tip in the stomach. Reviewed, dictated and finalized at location A. OL AGE PROGRAM TEACHER
--- NOTE | ~2023-12-13 | CT_ITS ---
EXAMINATION: CT chest abdomen pelvis wo con DATE: 12/13/2023 15:43 INDICATION: AMS, abdominal pain? . TECHNIQUE: Computed tomography (CT) of the chest, abdomen, and pelvis was performed with 100 mL Omnip aque-350 intravenous contrast. Automated exposure control and iterative reconstruction technique were employed. The dose-length product was 592.07 mGy-cm. COMPARISON: CT chest 11/05/2020; CT abdomen pelvis 09/15/2020 FINDINGS: CHEST: Thoracic aorta: No significant dilation. Moderate arch calcification. Decreased blood pool density. Lung parenchyma and airways: Airways clear. Mild septal thickening. Scattered groundglass opacities. Subcentimeter right middle lobe air cyst. Thoracic inlet, axillae and chest wall: No thyroid mass. Chronic stable posterior soft tissue fluid c ollection at the level of the lower cervical spine, presumed chronic seroma. Symmetric bilateral gyne comastia. No axillary lymphadenopathy. Mediastinum: Right hilar node calcifications. Heart and pericardium: Normal heart size. No pericardial effusion. Coronary artery calcifications: Heavy. Pleura: No effusion or mass. Thoracic bones: No acute osseous finding in the chest. Chronic stable osteolysis at multiple levels i n the lower cervical spine, presumed chronic change from postoperative seroma. ABDOMEN/PELVIS: Liver: Normal. Biliary/Gallbladder: Gallbladder is normal. No bile duct dilation. Pancreas: No mass or duct dilation. Spleen: Normal. Adrenals:No mass. Kidneys: No suspicious mass, obstructing stone, or hydronephrosis. GI tract: The rectum is dilated to 7.5 cm by formed stool, without surrounding inflammatory change. N o small bowel dilation. Chronically dilated appendix, without inflammatory change. Diverticulosis wit hout diverticulitis. Mesentery/Peritoneum: No ascites, mass, or free air. Retroperitoneum: No mass Pelvis: The urinary bladder is decompressed by a Chiang catheter. Soft Tissues: Soft tissues and body wall unremarkable. Abdominopelvic bones: No acute osseous finding in the abdomen/pelvis. IMPRESSION: Mild pulmonary edema. Decreased blood pool density, as can be seen with anemia. Likely fecal impaction. No CT evidence of stercoral colitis. No other acute process detected in the chest, abdomen, or pelvis Reviewed, dictated and finalized at location K. R PIPE SORTER
--- NOTE | ~2023-12-13 | US_ITS ---
EXAMINATION: US renal BI DATE: 12/15/2023 16:15 INDICATION: Acute kidney injury TECHNIQUE: Multiple grayscale and Doppler ultrasound images of the kidneys were obtained. COMPARISON: None. FINDINGS: The right kidney measures 10 x 5 x 4.8 cm. The left kidney measures 9.7 x 5.5 x 5.2 cm. The kidneys demonstrate normal parenchymal echogenicity. There is no hydronephrosis. The bladder is deco mpressed by Chiang catheter. IMPRESSION: 1. Normal kidneys without hydronephrosis. Reviewed, dictated and finalized at location B. DICHLOROBENZENE TENDER
--- NOTE | ~2023-12-13 | XR_ITS ---
EXAMINATION: XR abdomen obstructive series DATE: 12/19/2023 16:28 INDICATION: Low abdominal pain. TECHNIQUE: Upright and supine views of the abdomen were obtained. COMPARISON: CT abdomen and pelvis 12/13/2023 FINDINGS: There are no dilated loops of bowel. There is a small volume of stool in the colon. A martin ter overlies right pelvis. There is no free intraperitoneal gas. IMPRESSION: 1. Nonobstructive bowel gas pattern. Reviewed, dictated and finalized at location A. JOB ESTIMATOR
--- NOTE | ~2023-12-13 | CT_ITS ---
EXAMINATION: CT brain wo con DATE: 12/13/2023 15:43 INDICATION: AMS . TECHNIQUE: Computed tomography (CT) of the head was performed without intravenous contrast. The mA wa s adjusted according to patient size. Iterative reconstruction technique was employed. The dose-lengt h product was 1059.33 mGy-cm. COMPARISON: 11/27/2023. FINDINGS: No acute intracranial hemorrhage or extra-axial fluid collection. No hydrocephalus, mass, or herniation. No acute ischemic infarct. Unremarkable dural venous sinus attenuation. No acute osseous abnormality. The aerated spaces are clear. Moderate atrophy and chronic white matter change. Atherosclerotic intracranial calcification. IMPRESSION: No acute intracranial process. Reviewed, dictated and finalized at location K. FURNITURE MAKER
--- NOTE | 2023-12-13 14:14 | ECG_ITS ---
Measurements Intervals [place] Rate: 105 P: IA: 0 QRS: -51 QRSD: 76 T: -33 QT: 354 QTc: 468 Interpretive Statements SINUS TACHYCARDIA BASELINE ARTIFACT INFERIOR MYOCARDIAL INFARCTION , PROBABLY OLD [40+ ms Q WAVE AND/OR ST/T ABNORMALITY IN II/aVF] ANTEROLATERAL MYOCARDIAL INFARCTION , OF INDETERMINATE AGE [40+ ms Q WAVE IN I/aVL/V3- V6] ABNORMAL ECG COMPARED TO ECG 09/23/2023 18:13:40 SUPRAVENTRICULAR TACHYCARDIA NOW PRESENT Electronically Signed On 12-13-2023 14:49:01 UPHOLSTERY TECHNICIAN by Joni Proctor M.D.
--- NOTE | 2023-12-13 14:42 | ED.AMS ---
HPI - Altered Mental Status General Chief Complaint: Altered Mental Status Stated Complaint: AMS Time Seen by Provider: 12/13/23 14:16 History of Present Illness HPI narrative: Patient is a 78-year-old male with a history of dementia, hypertension, diabetes, hyperlipidemia presenting with altered mental status. Patient is coming from a nursing facility and is unable to provide history. His daughter in laws at bedside but also knows very little. Apparently he was noted to be altered today at the facility so they called EMS. Patient is alert but unable to answer questions. Patient is writhing around in apparent pain. Related Data Home Medications Medication Instructions Recorded Confirmed acetaminophen 325 mg tablet 650 mg PO Q6H PRN temp ##0 09/15/19 12/13/23 amlodipine 5 mg tablet 5 mg PO DAILY 09/15/19 12/13/23 aspirin 81 mg chewable tablet 81 mg PO DAILY ##0 09/15/19 12/13/23 dextran 70-hypromellose eye drops 1 drp ophthalmic (eye) Q6H PRN Dry 09/15/19 12/13/23 in a dropperette (Artificial Tears Eyes ##0 (PF) drops in a dropperette) glipizide 5 mg tablet 5 mg PO DAILY 09/15/19 12/13/23 lisinopril 20 mg tablet 20 mg PO DAILY 09/15/19 12/13/23 metoprolol succinate 50 mg 50 mg PO DAILY 09/15/19 12/13/23 tablet,extended release 24 hr rosuvastatin 10 mg tablet 10 mg PO DAILY 09/15/19 12/13/23 sertraline 50 mg tablet 50 mg PO DAILY 09/15/19 12/13/23 cholecalciferol (vitamin D3) 1,250 1,250 mcg PO MONTHLY 09/15/20 12/13/23 mcg (50,000 unit) capsule metformin 500 mg tablet 250 mg PO BID 06/06/23 12/13/23 clotrimazole 1 % topical cream 1 applic topical QHS 12/13/23 12/13/23 ibuprofen 600 mg tablet 600 mg PO TID PRN pain/inflammation 12/13/23 12/13/23 melatonin 3 mg tablet 3 mg PO HS 12/13/23 12/13/23 trazodone 50 mg tablet 25 mg PO HS 12/13/23 12/13/23 Allergies Allergy/AdvReac Type Severity Reaction Status Date / Time Iodine and Iodide Containing Allergy Unknown Unknown Verified 12/13/23 19:57 Produc Sulfa (Sulfonamide Allergy Unknown Unknown Verified 12/13/23 19:57 Antibiotics) atorvastatin [From Lipitor] Allergy Unknown Verified 12/13/23 19:57 shellfish derived Allergy Unknown Verified 12/13/23 19:57 simvastatin Allergy Unknown Verified 12/13/23 19:57 IV Dye Allergy Unknown Uncoded 12/13/23 19:57 Review of Systems Review of Systems: All systems reviewed & are unremarkable except as noted in HPI and below [facility] Past Medical History Medical History (Updated 12/13/23 @ 21:58 by Ivory Layne MD) Anxiety Deep venous thrombosis Dementia Depression Dysphagia Heart failure of unknown type Poorly documented. Hyperlipidemia Hypertension Transient ischemic attack Type 2 diabetes mellitus Urinary tract infection due to extended-spectrum beta lactamase (ESBL) producing Escherichia coli Surgical History Surgical History (Updated 12/13/23 @ 18:29 by Marcy Vargas PA-C) Surgical history unknown Family History Family History Other Unknown family medical history Social History Social History (Updated 12/13/23 @ 18:30 by Marcy Vargas PA-C) Social History: Healthcare power of employment attorney: Juancarlos Waldron. Code status: Modified code, medications only. Smoking packs per day: 1 Smoking cigarettes per day: 20.0 Years smoked: 40 Smoking pack-years: 40.00 Smoking status: Former smoker Tobacco type: cigarettes Alcohol intake: unknown Substance use: unknown Substance use type: unknown Living arrangements: prison Additional living arrangements comments: [facility]. Spiritual care concerns: No Exam Narrative: GENERAL: ill-appearing, writhing around, tracks with his eyes but not responding to questions HEAD: Normocephalic, atraumatic. EYES: PERRLA and EOMI. ENT: Mucous membranes dry NECK: Supple. CHEST: Clear to auscultation. No respiratory distress. HEART: Regular rate
[2023-12-13 14:51] LABS: Basophils Percent Auto 0.4 % (0.2-1.2); Eosinophils Absolute Auto 0.1 K/mm3 (0-0.3); Eosinophils Percent Auto 1.3 % (0-4.4); Hematocrit 44.2 % (42.0-52.0); Hemoglobin 12.1 g/dL (14.0-18.0); Immature Granulocyte Absolute 0.01 K/mm3 (0.00-0.031); Immature Granulocyte Percent A 0.1 % (0-0.5); Immature Platelet Fraction Pct 8.2 % (0.9-11.2); Lymphocytes Absolute Auto 3.55 K/mm3 (0.9-3.2); Lymphocytes Percent Auto 45.8 % (18.3-44.2); Mean Corpuscular HGB Conc 27.4 g/dl (32-36); Mean Corpuscular Hemoglobin 26.2 pg (26-34); Mean Corpuscular Volume 95.9 fl (80-100); Mean Platelet Volume 13.2 fl (7.4-10.4); Monocytes Absolute Auto 0.6 K/mm3 (0.1-0.6); Monocytes Percent Auto 8.3 % (2.6-8.5); Neutrophils Absolute Auto 3.4 K/mm3 (1.3-6.7); Neutrophils Percent Auto 44.1 % (45.5-73.1); Platelet Count Result 115 k/mm3 (150-375); Red Blood Count 4.61 M/mm3 (4.6-6.20); Red Cell Distribution Width 16.7 % (11.5-14.5); White Blood Count 7.8 K/mm3 (4.5-10.0)
[2023-12-13] MEDS: fentaNYL CITRATE INJ (*CRX) 100 MCG/2 ML VIAL 50 MCG IV PUSH (14:52)
[2023-12-13] MEDS: SODIUM CHLORIDE 0.9% IV 1,000 ML 999 ML IV CONT ×3 (14:53→20:21)
[2023-12-13 14:54] LABS: INR 1.2; Prothrombin Time 15.7 Seconds (11.1-14.7)
[2023-12-13 14:55] LABS: Alanine Aminotransferase 18 U/L (6-50); Albumin Level 3.6 g/dL (3.5-5.1); Alkaline Phosphatase 73 U/L (38-126); Anion Gap 7 mmol/L (8-16); Aspartate Amino Transferase 31 U/L (17-59); Bilirubin,Total 0.5 mg/dL (0.2-1.3); Blood Urea Nitrogen 81 mg/dL (9-20); Calcium 9.5 mg/dL (8.4-10.2); Carbon Dioxide 28 mmol/L (22-30); Chloride 147 mmol/L (98-107); Estimated CRCL calculation 9 ml/min; Estimated Glomerular Filt Rate 14; Glucose 95 mg/dL (65-110); Partial Thromboplastin Time 34.9 SECONDS (22.3-36.8); Potassium 4.3 mmol/L (3.4-5.0); Sodium 182 mmol/L (137-145)
[2023-12-13 15:27] LABS: Lactic Acid Reflex 1.4 mmol/L (0.7-2.0)
[2023-12-13 15:28] LABS: Anion Gap 4 mmol/L (8-16); Blood Urea Nitrogen 77 mg/dL (9-20); Calcium 8.6 mg/dL (8.4-10.2); Carbon Dioxide 28 mmol/L (22-30); Chloride 149 mmol/L (98-107); Estimated CRCL calculation 10 ml/min; Estimated Glomerular Filt Rate 14; Glucose 81 mg/dL (65-110); Lipase 569 U/L (23-300); Magnesium 3.1 mg/dL (1.6-2.3); Sodium 181 mmol/L (137-145)
[2023-12-13 15:32] LABS: INR 1.3; Prothrombin Time 16.5 Seconds (11.1-14.7)
[2023-12-13 15:44] LABS: NT Pro B Type Natriuretic Pept 76 pg/mL (19.9-100); Troponin I 0.047 ng/mL (0.000-0.034)
[2023-12-13 15:50] LABS: Influenza A QL RT-PCR Negative (Negative); Influenza B QL RT-PCR Negative (Negative); RSV RNA, RT-PCR Negative (Negative); SARS-CoV-2 RNA PCR Negative (Negative)
[2023-12-13 16:01] LABS: Appearance Urine Turbid (Clear); Bacteria Urine 4+ /hpf; Bilirubin Urine Negative (Negative); Blood Urine 3+ (Negative); Color Urine Dark Yellow (Yellow); Glucose Urine UA Negative (Negative); Ketones Urine Trace mg/dL (Negative); Leukocyte Esterase Ur 2+ LEU/UL (Negative); Need Manual Microscopic Reviewed; Nitrate Urine Positive (Negative); Non Pathogenic Casts >20; Protein Urine 2+ mg/dL (Negative); RBC Urine 21-50 /hpf (0-2); Specific Grav Ur 1.019 (1.001-1.035); Squamous Epithelial Cell Urine Few /hpf (Few); Urobilinogen Urine 0.2 mg/dL (<2.0); WBC Urine >100 /hpf
[2023-12-13 16:12] LABS: Add Urine Microscopic? YES
[2023-12-13] MEDS: DEXTROSE 5%/0.45% SOD CHL 1,000 ML 100 ML IV CONT (17:15)
[2023-12-13] MEDS: HYDROmorphone HCL INJ (*CRX) 1 MG/ML SYR 0.5 MG IV PUSH (17:15)
--- NOTE | 2023-12-13 18:22 | PM.IMHP ---
H&P: HPI History of Present Illness Date/Time: 12/13/23 18:50 Chief Complaint: Altered mental status. Narrative: This is a 78-year-old male with history of transient ischemic attack, hypertension, hyperlipidemia, congestive heart failure (poorly documented), type 2 diabetes mellitus, anxiety, depression, and DVT who presented to the emergency department via EMS from a local nursing facility for evaluation of altered mental status. She is alert but unable to provide any history and as such a majority of the following is obtained via a review of his EMR as well as information provided by his [id number] who was at bedside however she knows very little of his history. At baseline he is alert and oriented x1-2 however today he was apparently much more confused than usual and fact was not even answering questions or following commands although he was alert. EMS was summoned on their arrival his SpO2 was reportedly in the 80s on room air and he was placed on 2 L nasal cannula. Blood pressure was 77/58 on arrival to the ED and he was given a 2 L normal saline bolus with not much improvement. His labs were significant for a sodium of 181, potassium 4.0, chloride 149, carbon dioxide 28, BUN 77, creatinine 4.80, troponin 0.047, lipase 569. Urinalysis was positive for 2+ protein, trace ketones, 3+ blood, positive nitrates, 2+ leukocyte esterase, 21 to 50 RBC, greater than 100 WBC, 4+ bacteria. Brain CT showed no acute intracranial process. CT of the chest, abdomen, and pelvis showed mild pulmonary edema and likely fecal impaction but no other acute processes. He was given 2 g of cefepime in addition to the IV fluids as detailed above and he is being admitted to the ICU for further treatment and evaluation. At the time my evaluation he is alert but not answering questions or following commands. Review of Systems Review of Systems: Unable to obtain given clinical condition as above. [facility] Past Medical History Medical History Anxiety Deep venous thrombosis Dementia Depression Dysphagia Heart failure of unknown type Poorly documented. Hyperlipidemia Hypertension Transient ischemic attack Type 2 diabetes mellitus Urinary tract infection due to extended-spectrum beta lactamase (ESBL) producing Escherichia coli Surgical History Surgical History Surgical history unknown Family History Family History Other Unknown family medical history Social History Social History Social History: Healthcare power of physician: Juancarlos Waldron. Code status: Modified code, medications only. Smoking packs per day: 1 Smoking cigarettes per day: 20.0 Years smoked: 40 Smoking pack-years: 40.00 Smoking status: Former smoker Tobacco type: cigarettes Alcohol intake: unknown Substance use: unknown Substance use type: unknown Living arrangements: [facility] Additional living arrangements comments: [facility]. Spiritual care concerns: No Meds Home Medications and Allergies Home Medications Medication Instructions Recorded Confirmed Type acetaminophen 325 mg tablet 650 mg PO Q6H PRN temp ##0 09/15/19 12/13/23 History amlodipine 5 mg tablet 5 mg PO DAILY 09/15/19 12/13/23 History aspirin 81 mg chewable tablet 81 mg PO DAILY ##0 09/15/19 12/13/23 History dextran 70-hypromellose eye drops 1 drp ophthalmic (eye) Q6H PRN Dry 09/15/19 12/13/23 History in a dropperette (Artificial Tears Eyes ##0 (PF) drops in a dropperette) glipizide 5 mg tablet 5 mg PO DAILY 09/15/19 12/13/23 History lisinopril 20 mg tablet 20 mg PO DAILY 09/15/19 12/13/23 History metoprolol succinate 50 mg 50 mg PO DAILY 09/15/19 12/13/23 History tablet,extended release 24 hr rosuvastatin 10 mg tablet 10 mg PO DAILY 11
[2023-12-13 18:27] LABS: Anion Gap 11 mmol/L (8-16); Blood Urea Nitrogen 71 mg/dL (9-20); Calcium 8.4 mg/dL (8.4-10.2); Carbon Dioxide 23 mmol/L (22-30); Chloride 147 mmol/L (98-107); Estimated CRCL calculation 9 ml/min; Estimated Glomerular Filt Rate 14; Glucose 77 mg/dL (65-110); Sodium 181 mmol/L (137-145)
[2023-12-13 18:33] LABS: Troponin I 0.056 ng/mL (0.000-0.034)
--- NOTE | 2023-12-13 18:50 | PC.NURSE ---
This patient, Carroll Roy, was admitted to Intensive Care Unit-2. Patient/family oriented to hospital policies and general routines including ID bracelet, bed and alarms, visiting hours, pain management, procedures, bathroom and other care routines, personal items, smoking policy, room service/diet, and visiting hours. Information on how to activate the Rapid Response Team has been discussed. Patient/Family are encouraged to report perceived risks to care and to ask questions if they do not understand what they are told or what they should do.
[2023-12-13 18:58] LABS: Hemoglobin A1C 7.2 % (<5.7)
[2023-12-13] MEDS: VANCOMYCIN 750 MG/NS 250 ML 750 MG/250 ML BAG 250 MG IVPB (20:20)
[2023-12-13 20:27] LABS: Anion Gap 11 mmol/L (8-16); Blood Urea Nitrogen 74 mg/dL (9-20); Calcium 8.2 mg/dL (8.4-10.2); Carbon Dioxide 21 mmol/L (22-30); Chloride 147 mmol/L (98-107); Estimated CRCL calculation 10 ml/min; Estimated Glomerular Filt Rate 14; Glucose 120 mg/dL (65-110); Sodium 179 mmol/L (137-145)
[2023-12-13] MEDS: LACTATED RINGERS 1,000 ML 999 ML IV CONT ×2 (20:29→22:59)
[2023-12-13 20:37] LABS: NT Pro B Type Natriuretic Pept 79 pg/mL (19.9-100); Troponin I 0.096 ng/mL (0.000-0.034)
[2023-12-13] MEDS: CEFEPIME 2 GM/NS 50 ML 2 GM/50 ML BAG IVPB (21:29)
[2023-12-13] MEDS: DEXTROSE 5% 1,000 ML 1,000 ML 75 ML IV CONT (21:41)
[2023-12-13 22:01] LABS: Glucose Point of Care 92 mg/dl (65-105)
[2023-12-13] MEDS: MEROPENEM 1 GM/NS 100 ML 1 GM/100 ML BAG IVPB (22:34)
[2023-12-14] VITALS (21 sets, daily range): BP systolic 86–126; BP diastolic 46–93; PULSE 50–120; RESP 14–21; TEMP 32.2–38.6; O2SAT 94–100
--- NOTE | 2023-12-14 00:28 | P.PCNBED_ITS ---
Procedures Central Line Placement Right Femoral: Central Line Date: 12/14/23 Central Line Time: 00:05 Consent: I have discussed with the patient and/or surrogate, the non-emergent placement of a central venous catheter, including its clinical necessity/indication and associated potential risks and complications. The patient and/or surrogate understand(s) and acknowledge(s) the need to proceed with central venous catheter insertion as an important element of the patient's clinical management. Time Out Performed: Yes Patient Position: supine Patient placed on monitor/pulse ox: Yes Provider Prep: mask, sterile gown, sterile gloves, Max. sterile barrier precautions, cap and hand hygiene with conventional soap/water or alcohol based hand rub Central line prep: 2% Chlorhexidine scrub Local anesthesia used: lidocaine 1% Amount of anesthesia used (ml): 5 Sterile US Technique with sterile gel/sterile probe covers: Yes Central line lumen inserted: triple [place]: 7 Length (cm): 20 Post Procedure: sutured in place, good blood return, all ports aspirated, flushed, capped, transparent dressing, hemostatic product and aseptic technique maintained throughout procedure Post procedure x-ray: other (n/a with femoral placement) Complications: none
[2023-12-14] MEDS: NOREPINEPHRINE 8 MG/D5W 250 ML 8 MG/250 ML BAG 9.38 MG IV CONT ×2 (00:52→02:11)
[2023-12-14 01:24] LABS: Creatine Kinase 1113 U/L (55-170)
[2023-12-14 01:35] LABS: Sodium 171 mmol/L (137-145)
[2023-12-14] MEDS: SODIUM CHLORIDE 0.9% IV 1,000 ML 75 ML IV CONT (01:56)
[2023-12-14 02:27] LABS: Glucose Point of Care 119 mg/dl (65-105)
[2023-12-14 03:55] LABS: Hematocrit 32.5 % (42.0-52.0); Hemoglobin 8.9 g/dL (14.0-18.0); Immature Platelet Fraction Pct 6.7 % (0.9-11.2); Mean Corpuscular HGB Conc 27.4 g/dl (32-36); Mean Corpuscular Hemoglobin 26.4 pg (26-34); Mean Corpuscular Volume 96.4 fl (80-100); Platelet Count Result 86 k/mm3 (150-375); Red Blood Count 3.37 M/mm3 (4.6-6.20); Red Cell Distribution Width 16.6 % (11.5-14.5)
[2023-12-14 04:17] LABS: Anion Gap 6 mmol/L (8-16); Blood Urea Nitrogen 64 mg/dL (9-20); Calcium 7.5 mg/dL (8.4-10.2); Carbon Dioxide 23 mmol/L (22-30); Chloride 145 mmol/L (98-107); Estimated CRCL calculation 11 ml/min; Estimated Glomerular Filt Rate 16; Glucose 104 mg/dL (65-110); Lipase 202 U/L (23-300); Magnesium 2.2 mg/dL (1.6-2.3); Phosphorus 4.2 mg/dL (2.5-4.5); Potassium 4.2 mmol/L (3.4-5.0); Sodium 174 mmol/L (137-145)
[2023-12-14] MEDS: CENTRAL LINE FLUSH 10 ML IV PUSH ×3 (04:18→20:56)
[2023-12-14 04:26] LABS: White Blood Count 8.6 K/mm3 (4.5-10.0)
[2023-12-14 06:44] LABS: Glucose Point of Care 85 mg/dl (65-105)
[2023-12-14 07:08] LABS: Sodium 173 mmol/L (137-145)
--- NOTE | 2023-12-14 08:03 | WPDCNINT ---
Assessment and Plan Assessment and plan (1) Hypernatremia: Code(s): E87.0 - Hyperosmolality and hypernatremia Status: Acute Assessment and Plan: Patient presented with severe hyponatremia likely secondary to dehydration and decreased p.o. intake Patient has been treated with IV fluids and sodium is improving Nephrology is managing sodium and IV fluids at this time will defer management to the signal operator technical (2) Urinary tract infection: Code(s): N39.0 - Urinary tract infection, site not specified Status: Acute Assessment and Plan: See above (3) Acute kidney injury: Code(s): N17.9 - Acute kidney failure, unspecified Status: Acute Assessment and Plan: Acute kidney injury likely secondary to dehydration which may have progressed to ATN, rhabdomyolysis Patient was also on ibuprofen at [facility] which will be held Hold lisinopril Nephrology following Continue IV fluids CT abdomen pelvis was negative for any stone or obstruction Monitor urine output electrolytes and creatinine (4) Fecal impaction: Code(s): K56.41 - Fecal impaction Status: Acute Assessment and Plan: Start laxatives through NG tube (5) Encephalopathy: Code(s): G93.40 - Encephalopathy, unspecified Status: Acute Assessment and Plan: Patient does have baseline dementia which appears to be worse this is likely secondary to toxic metabolic encephalopathy although a new stroke cannot be completely ruled out at this time Head CT was negative. If does not improve an MRI can be considered although it would not change the management in long run Continue aspirin and statin (6) Type 2 diabetes mellitus: Code(s): E11.9 - Type 2 diabetes mellitus without complications Status: Acute Assessment and Plan: Sliding scale insulin (7) Dementia: Code(s): F03.90 - Unspecified dementia, unspecified severity, without behavioral disturbance, psychotic disturbance, mood disturbance, and anxiety Status: Acute Assessment and Plan: Baseline dementia likely vascular (8) Sepsis: Code(s): A41.9 - Sepsis, unspecified organism Status: Acute Assessment and Plan: Shock secondary to sepsis and significant dehydration He he has received IV fluid bolus and is on maintenance IV fluids targeted to control sodium improvement. Patient is on cefepime and I will switch him to meropenem date as patient has history of ESBL E coli Cultures have been sent and are pending Continue Levophed to maintain mean arterial pressure Hold home BP medications (9) Dehydration: Code(s): E86.0 - Dehydration Status: Inactive Assessment and Plan: See above (10) Shock: Code(s): R57.9 - Shock, unspecified Status: Acute Assessment and Plan: See above (11) Rhabdomyolysis: Code(s): M62.82 - Rhabdomyolysis Status: Acute Assessment and Plan: CK level elevated Continue IV fluids Monitor Plan DVT prophylaxis -Lovenox Stress ulcer prophylaxis - Nutrition -insert NG tube and start Tube Feeds Code Status -as per the ED physician's discussion with patient's family patient is DNR DNI Total Critical Care Time - 35 minutes Due to a high probability of clinically significant, life threatening deterioration, the patient required my highest level of preparedness to intervene emergently and I personally spent this critical care time directly and personally managing the patient. This critical care time included obtaining a history; examining the patient; pulse oximetry; ordering and review of studies; arranging urgent treatment with development of a management plan; evaluation of patient's response to treatment; frequent reassessment; and discussions with other providers. It was exclusive of separately billable procedures and treating other patients and teaching time. Please see Assessment and Plan section and the rest of the note
[2023-12-14] MEDS: polyethylene glycoL 3350 17 GM POWD.PACK FEED TUBE ×2 (09:04→20:47)
[2023-12-14] MEDS: ENOXAPARIN 30 MG/0.3 ML SYRINGE SUB-Q (09:04)
[2023-12-14] MEDS: ROSUVASTATIN 10 MG TABLET FEED TUBE (09:04)
[2023-12-14] MEDS: MIDODRINE HCL 10 MG TABLET FEED TUBE ×3 (09:04→17:11)
[2023-12-14] MEDS: ASPIRIN 81 MG CHEWABLE TABLET FEED TUBE (09:04)
[2023-12-14] MEDS: BISACODYL 10 MG SUPPOSITORY RECTAL (09:04)
[2023-12-14 10:58] LABS: Sodium 173 mmol/L (137-145)
--- NOTE | 2023-12-14 11:05 | PM.CNNEP ---
Assessment and Plan Assessment and plan (1) Hypernatremia: Code(s): E87.0 - Hyperosmolality and hypernatremia Status: Acute Assessment and Plan: acute normal sodium in September 2023 felt to be secondary to significant dehydration/volume depletion and reduced oral po/fluid intake slow improvement with interventions to date goal of therapy is decrease in sodium level of around 10mmol/L per 24 hours...this appears to occurring suspect will eventually need D5W IVFs along with free water flushes to fully compensate follow trend of repeat sodium levels (2) Acute kidney injury: Code(s): N17.9 - Acute kidney failure, unspecified Status: Acute Assessment and Plan: suspect multifactorial: prerenal factors/volume depletion/dehydration rhabdomyolysis NSAIDs LAW-I/BP medications use prior to admission hemodynamic instability/hypotension infection CT scan without obstruction check urine electrolytes/eosinophils and follow trend of CPK check renal ultrasound remains at risk for MANAGER EMERGENCY DEPARTMENT/dialysis follow repeat labs and UOP (3) Shock: Code(s): R57.9 - Shock, unspecified Status: Acute Assessment and Plan: suspect a combination of sepsis and volume depletion/hypovolemia s/p IVF resuscitation follow culture data on antibiotics vasopressor support to maintain MAP follow trend of hemodynamics (4) Urinary tract infection: Code(s): N39.0 - Urinary tract infection, site not specified Status: Acute Assessment and Plan: suspected based on admission UA blood/urine cultures pending on antibiotics (5) Encephalopathy: Code(s): G93.40 - Encephalopathy, unspecified Status: Acute Assessment and Plan: complicated by known baseline dementia admission head CT negative suspect worse due hypernatremia + suspected infection/sepsis follow mentation possible brain MRI if no improvement (6) Rhabdomyolysis: Code(s): M62.82 - Rhabdomyolysis Status: Acute Assessment and Plan: CK level elevated on admission follow trend on IVFs (7) Type 2 diabetes mellitus: Code(s): E11.9 - Type 2 diabetes mellitus without complications Status: Chronic Assessment and Plan: follow accu-cheks glycemic control per hospitalists/leadite heater I will continue follow the patient with you while he he remains hospitalized and make further recommendations as deemed necessary Thank you for allowing me to participate in care of this patient. History of Present Illness Reason for Consult Consult date: 12/14/23 Reason for consult: acute renal failure and hypernatremia Chief Complaint Chief complaint: hypernatremia History of Present Illness Narrative: All the information I have obtained is from review of the electronic medical record as well as discussion with the physician/nurses involved in the patient's care as is difficult to get any information from the patient due to his altered mental status/ encephalopathy at this time. The patient is a 78-year-old male with an extensive past medical history as outlined below who presented to [facility] Emergency Room yesterday via EMS from his nursing facility for further evaluation of altered mental status. The patient has dementia at baseline and is usually alert oriented times 1-2. However, yesterday, he appeared to be more confused and altered than his baseline mentation dot dot dot he was apparently alert but was unable to answer questions or follow commands which she is able to do at baseline. Given this change, EMS was summoned and he was subsequently transferred to the emergency room for further assessment. Per report, he was reporting hypoxic on room air on arrival by EMS which improved with addition of 2 L of supplemental oxygen by nasal cannula. By the time of his arrival to the emergency room, he was noted to be hypotensive wi
--- NOTE | 2023-12-14 11:05 | P.CONNP_ITS ---
Assessment and Plan Assessment and plan (1) Hypernatremia: Code(s): E87.0 - Hyperosmolality and hypernatremia Status: Acute Assessment and Plan: * acute * normal sodium in September 2023 * felt to be secondary to significant dehydration/volume depletion and reduced oral po/fluid intake * slow improvement with interventions to date * goal of therapy is decrease in sodium level of around 10mmol/L per 24 hours...this appears to occurring * suspect will eventually need D5W IVFs along with free water flushes to fully compensate * follow trend of repeat sodium levels (2) Acute kidney injury: Code(s): N17.9 - Acute kidney failure, unspecified Status: Acute Assessment and Plan: * suspect multifactorial: * prerenal factors/volume depletion/dehydration * rhabdomyolysis * NSAIDs * LAW-I/BP medications use prior to admission * hemodynamic instability/hypotension * infection * CT scan without obstruction * check urine electrolytes/eosinophils and follow trend of CPK * check renal ultrasound * remains at risk for SWATCH CUTTER/dialysis * follow repeat labs and UOP (3) Shock: Code(s): R57.9 - Shock, unspecified Status: Acute Assessment and Plan: * suspect a combination of sepsis and volume depletion/hypovolemia * s/p IVF resuscitation * follow culture data * on antibiotics * vasopressor support to maintain MAP * follow trend of hemodynamics (4) Urinary tract infection: Code(s): N39.0 - Urinary tract infection, site not specified Status: Acute Assessment and Plan: * suspected based on admission UA * blood/urine cultures pending * on antibiotics (5) Encephalopathy: Code(s): G93.40 - Encephalopathy, unspecified Status: Acute Assessment and Plan: * complicated by known baseline dementia * admission head CT negative * suspect worse due hypernatremia + suspected infection/sepsis * follow mentation * possible brain MRI if no improvement (6) Rhabdomyolysis: Code(s): M62.82 - Rhabdomyolysis Status: Acute Assessment and Plan: * CK level elevated on admission * follow trend * on IVFs (7) Type 2 diabetes mellitus: Code(s): E11.9 - Type 2 diabetes mellitus without complications Status: Chronic Assessment and Plan: * follow accu-cheks * glycemic control per hospitalists/pop singer I will continue follow the patient with you while he he remains hospitalized and make further recommendations as deemed necessary Thank you for allowing me to participate in care of this patient. History of Present Illness Reason for Consult Consult date: 12/14/23 Reason for consult: acute renal failure and hypernatremia Chief Complaint Chief complaint: hypernatremia History of Present Illness Narrative: All the information I have obtained is from review of the electronic medical record as well as discussion with the physician/nurses involved in the patient's care as is difficult to get any information from the patient due to his altered mental status/ encephalopathy at this time. The patient is a 78-year-old male with an extensive past medical history as outlined below who presented to [facility] Emergency Room yesterday via EMS from his nursing facility for further evaluation of altered mental status. The patient has dementia at baseline and is usually alert oriented times 1-2. However, yesterday, he appeared to be more confused and altered than his baseline me
[2023-12-14] MEDS: DEXTROSE 50% 25 GM/50 ML SYRINGE IV PUSH (11:37)
[2023-12-14] MEDS: ALBUMIN HUMAN 25% 25 GM/100 ML 100 ML IVPB ×3 (11:42→23:13)
[2023-12-14 11:59] LABS: Glucose Point of Care 51 mg/dl (65-105)
[2023-12-14 12:17] LABS: Glucose Point of Care 81 mg/dl (65-105)
[2023-12-14 12:17] LABS: Glucose Point of Care 81 mg/dl (65-105)
[2023-12-14] MEDS: DEXTROSE 5%/0.9% SOD CHL 1,000 ML 50 ML IV CONT (12:18)
--- NOTE | 2023-12-14 13:05 | PC.NURSE ---
Spoke with Dr. Felice naqviing lovenox and platelet count. Stated platelets and hemoglobin both decreased and pharmacy wanted to verify if MD still wanted prophylactic lovenox. stated yes, ok to continue dose.
[2023-12-14 14:52] LABS: Anion Gap 7 mmol/L (8-16); Blood Urea Nitrogen 63 mg/dL (9-20); Calcium 7.7 mg/dL (8.4-10.2); Carbon Dioxide 23 mmol/L (22-30); Chloride 144 mmol/L (98-107); Estimated CRCL calculation 10 ml/min; Estimated Glomerular Filt Rate 16; Glucose 73 mg/dL (65-110); Potassium 3.7 mmol/L (3.4-5.0); Sodium 174 mmol/L (137-145)
[2023-12-14] MEDS: DEXTROSE 5% 1,000 ML 1,000 ML 75 ML IV CONT (15:35)
[2023-12-14 17:24] LABS: Creatinine Urine 45.3 mg/dL; Total Protein Urine Random 79 mg/dL; Ur Ttl Prot Creatinine Ratio 1.74 mg/mg (0-0.20); Urea Random Urine 359 MG/DL
[2023-12-14 17:26] LABS: Sodium Urine Random 140 meq/L
[2023-12-14 17:33] LABS: Eosinophil Urine None Seen % (None Seen); Urine Eos QC 2nd Tech Confirmed
[2023-12-14 17:40] LABS: Glucose Point of Care 78 mg/dl (65-105)
[2023-12-14 18:47] LABS: Sodium 174 mmol/L (137-145)
[2023-12-14] MEDS: ACETAMINOPHEN ELIXIR 325 MG/10.15 ML UDC 650 MG FEED TUBE (19:12)
[2023-12-14] MEDS: MEROPENEM 1 GM/NS 100 ML 1 GM/100 ML BAG IVPB (20:44)
[2023-12-14 20:52] LABS: Glucose Point of Care 119 mg/dl (65-105)
[2023-12-14 23:55] LABS: Glucose Point of Care 134 mg/dl (65-105)
[2023-12-15] VITALS (14 sets, daily range): BP systolic 84–114; BP diastolic 54–92; PULSE 54–84; RESP 13–21; TEMP 37.1–37.7; O2SAT 90–100; BMI 23.1
--- NOTE | 2023-12-15 | ECHO_ITS ---
Patient Info Name: Carroll Roy Age: 78 years : 1945 Gender: Male Ht: 70 in Wt: 123 lbs BSA: 1.64 m2 HR: 72 bpm BP: 98 / 62 mmHg Heart Rhythm: Sinus Rhythm Technical Quality: Poor Exam Date: 12/15/2023 8:37 AM Exam Location: Echo Lab Patient Status: Inpatient Admit Date: 12/13/2023 Staff Ordering Physician: Marcy Vargas PA-C Mechanical Expert: Attending Provider: Kiara Noonan MD Referring Physician: Alicia LOBATO; Exam Type: CA echo doppler color flow Study Info Indications - elevated trop Complete two-dimensional, color flow and Doppler transthoracic echocardiogram is performed. Reason for Poor Study: poor patient cooperation Summary 1. Complete two-dimensional, color flow and Doppler transthoracic echocardiogram is performed. 2. Normal left ventricular size and overall systolic contractility, mild posterior hypokinesia. 3. Trivial amounts of aortic, pulmonic and tricuspid insufficiency. 4. Mildly sclerotic aortic valve with well maintained leaflet excursion. Left Ventricular Outflow Tract Name Value Normal LVOT 2D LVOT Diameter 2.1 cm Pulmonic Valve Name Value Normal PV Doppler PV Peak Gradient 2 mmHg PV Regurgitation Doppler CO Peak End Diastolic Velocity 52 cm/s Tricuspid Valve Name Value Normal TV Regurgitation Doppler TR Peak Velocity 272 cm/s TR Peak Gradient 30 mmHg Aortic Valve Name Value Normal AV Regurgitation 2D LVOT Area 3.5 cm2 Ventricles Name Value Normal LV Dimensions 2D/MM IVS Diastolic Thickness (2D) 1.3 cm 0.6-1.0 LVID Diastole (2D) 4.5 cm 4.2-5.8 LVIW Diastolic Thickness (2D) 1.0 cm 0.6-1.0 LVID Systole (2D) 3.5 cm 2.5-4.0 LVOT Diameter 2.1 cm LV Mass (2D Cubed) 184.93 g 88.00-224.00 LV Mass Index (2D Cubed) 112 g/m2 49-115 Relative Wall Thickness (2D) 0.46 LV Fractional Shortening/Ejection Fraction 2D/MM LV Fractional Shortening (2D)
[2023-12-15 00:07] LABS: Sodium 170 mmol/L (137-145)
[2023-12-15 02:46] LABS: Hepatitis B Surface Antigen Negative (Negative)
[2023-12-15 03:03] LABS: Hepatitis B Surface Anti Res Negative
[2023-12-15] MEDS: DEXTROSE 5% 1,000 ML 1,000 ML 75 ML IV CONT (04:46)
[2023-12-15] MEDS: CENTRAL LINE FLUSH 10 ML IV PUSH ×3 (04:46→21:13)
[2023-12-15 04:52] LABS: Hematocrit 30.7 % (42.0-52.0); Hemoglobin 8.9 g/dL (14.0-18.0); Immature Platelet Fraction Pct 9.7 % (0.9-11.2); Mean Platelet Volume 12.7 fl (7.4-10.4); Platelet Count Result 73 k/mm3 (150-375); Red Cell Distribution Width 16.4 % (11.5-14.5)
[2023-12-15 04:55] LABS: White Blood Count 8.2 K/mm3 (4.5-10.0)
[2023-12-15] MEDS: ALBUMIN HUMAN 25% 25 GM/100 ML 100 ML IVPB (05:11)
[2023-12-15 05:23] LABS: Alanine Aminotransferase 30 U/L (6-50); Albumin Level 3.1 g/dL (3.5-5.1); Alkaline Phosphatase 57 U/L (38-126); Anion Gap 8 mmol/L (8-16); Aspartate Amino Transferase 105 U/L (17-59); Bilirubin,Total 0.7 mg/dL (0.2-1.3); Blood Urea Nitrogen 59 mg/dL (9-20); Calcium 7.4 mg/dL (8.4-10.2); Carbon Dioxide 21 mmol/L (22-30); Chloride 138 mmol/L (98-107); Estimated CRCL calculation 12 ml/min; Estimated Glomerular Filt Rate 16; Glucose 184 mg/dL (65-110); Magnesium 2.2 mg/dL (1.6-2.3); Phosphorus 3.7 mg/dL (2.5-4.5); Sodium 167 mmol/L (137-145)
[2023-12-15 05:54] LABS: Creatine Kinase 5295 U/L (55-170)
[2023-12-15 06:11] LABS: Potassium 3.8 mmol/L (3.4-5.0)
[2023-12-15 07:44] LABS: Glucose Point of Care 160 mg/dl (65-105)
--- NOTE | 2023-12-15 08:55 | WPDINTPN ---
Progress Note: A&P Assessment and Plan (1) Hypernatremia: Code(s): E87.0 - Hyperosmolality and hypernatremia Status: Acute Assessment and Plan: Patient presented with severe hyponatremia likely secondary to dehydration and decreased p.o. intake Patient has been treated with IV fluids and sodium is improving He is also on free water flushes through the tube Nephrology is managing sodium and IV fluids at this time will defer management to the manager hematology (2) Sepsis: Code(s): A41.9 - Sepsis, unspecified organism Status: Acute Assessment and Plan: Shock secondary to sepsis and significant dehydration Sepsis secondary to UTI. Blood cultures are growing E coli. Patient has history of UTI with ESBL E coli He he has received IV fluid bolus and is on maintenance IV fluids targeted to control sodium improvement. Continue meropenem until susceptibilities are back Levophed weaned off at this time Hold home BP medications (3) Shock: Code(s): R57.9 - Shock, unspecified Status: Acute Assessment and Plan: Off Levophed for more than 24 hours now (4) Urinary tract infection: Code(s): N39.0 - Urinary tract infection, site not specified Status: Acute Assessment and Plan: See above (5) Acute kidney injury: Code(s): N17.9 - Acute kidney failure, unspecified Status: Acute Assessment and Plan: Acute kidney injury likely secondary to dehydration which may have progressed to ATN, rhabdomyolysis Patient was also on ibuprofen at skilled nursing which will be held Hold lisinopril Nephrology following Continue IV fluids CT abdomen pelvis was negative for any stone or obstruction Monitor urine output electrolytes and creatinine (6) Fecal impaction: Code(s): K56.41 - Fecal impaction Status: Acute Assessment and Plan: Patient now having bowel movements after initiation of laxatives through NG tube and suppository (7) Encephalopathy: Code(s): G93.40 - Encephalopathy, unspecified Status: Acute Assessment and Plan: Patient does have baseline dementia which appears to be worse this is likely secondary to toxic metabolic encephalopathy although a new stroke cannot be completely ruled out at this time Head CT was negative. If does not improve an MRI can be considered although it would not change the management in long run Continue aspirin and statin (8) Type 2 diabetes mellitus: Code(s): E11.9 - Type 2 diabetes mellitus without complications Status: Chronic Assessment and Plan: Patient was hypoglycemic and blood sugars have improved since initiation of dextrose Will start tube feeds today (9) Dementia: Code(s): F03.90 - Unspecified dementia, unspecified severity, without behavioral disturbance, psychotic disturbance, mood disturbance, and anxiety Status: Acute Assessment and Plan: Baseline dementia likely vascular (10) Dehydration: Code(s): E86.0 - Dehydration Status: Inactive Assessment and Plan: See above (11) Rhabdomyolysis: Code(s): M62.82 - Rhabdomyolysis Status: Acute Assessment and Plan: CK level elevated Continue IV fluids Monitor (12) Thrombocytopenia: Code(s): D69.6 - Thrombocytopenia, unspecified Status: Acute Assessment and Plan: Likely multifactorial as patient has sepsis and is on antibiotics Monitor this time Continue Lovenox (13) Anemia: Code(s): D64.9 - Anemia, unspecified Status: Acute Assessment and Plan: No signs of bleeding. Drop a initially after presentation as patient received significant IV fluids Hemoglobin now stable Monitor Check folic acid B12 and iron panel, stool occult blood Protonix Plan DVT prophylaxis -Lovenox Nutrition - start Tube Feeds at a low rate Code Status -as per the ED physician's discussion with patient's family patient is DNR DNI Total Critical
[2023-12-15] MEDS: ENOXAPARIN 30 MG/0.3 ML SYRINGE SUB-Q (09:10)
[2023-12-15] MEDS: ASPIRIN 81 MG CHEWABLE TABLET FEED TUBE (09:11)
[2023-12-15] MEDS: ROSUVASTATIN 10 MG TABLET FEED TUBE (09:11)
[2023-12-15] MEDS: MIDODRINE HCL 10 MG TABLET FEED TUBE ×3 (09:11→17:21)
[2023-12-15] MEDS: PANTOPRAZOLE SODIUM IV 40 MG VIAL IV PUSH ×2 (09:12→21:13)
[2023-12-15 10:49] LABS: Iron 36 ug/dL (49-181); Percent Iron Saturation 29 % (20-50)
--- NOTE | 2023-12-15 10:54 | PM.PNNEP ---
Progress Note: A&P Assessment and Plan (1) Hypernatremia: Code(s): E87.0 - Hyperosmolality and hypernatremia Status: Acute Assessment and Plan: acute normal sodium in September 2023 felt to be secondary to significant dehydration/volume depletion and reduced oral po/fluid intake slow improvement with interventions to date goal of therapy is decrease in sodium level of around 10mmol/L per 24 hours...this appears to occurring was on D5W IVFs -- can probably d/c once tolerating tube feedings also getting free water flushes follow trend of sodium levels (2) Acute kidney injury: Code(s): N17.9 - Acute kidney failure, unspecified Status: Acute Assessment and Plan: suspect multifactorial: prerenal factors/volume depletion/dehydration rhabdomyolysis NSAIDs LAW-I/BP medications use prior to admission hemodynamic instability/hypotension infection (UTI + bacteremia) evaluation to date: CT scan without obstruction urine eosinophils negative urine electrolytes non-prerenal (by FeNA and FeUrea) CPK rising - follow trend moderate proteinuria renal ultrasound pending follow repeat labs and UOP (3) Shock: Code(s): R57.9 - Shock, unspecified Status: Acute Assessment and Plan: suspect a combination of sepsis and volume depletion/hypovolemia s/p IVF resuscitation follow culture data - bacteremia and UTI noted on antibiotics weaned off vasopressor support follow trend of hemodynamics (4) Urinary tract infection: Code(s): N39.0 - Urinary tract infection, site not specified Status: Acute Assessment and Plan: suspected based on admission UA urine cultures with E.coli on antibiotics (5) Encephalopathy: Code(s): G93.40 - Encephalopathy, unspecified Status: Acute Assessment and Plan: complicated by known baseline dementia admission head CT negative suspect worse due hypernatremia + suspected infection/sepsis follow mentation possible brain MRI if no improvement (6) Rhabdomyolysis: Code(s): M62.82 - Rhabdomyolysis Status: Acute Assessment and Plan: CK level elevated on admission follow trend on IVFs (7) Type 2 diabetes mellitus: Code(s): E11.9 - Type 2 diabetes mellitus without complications Status: Chronic Assessment and Plan: follow accu-cheks glycemic 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 Subjective Date/time seen: 12/15/23 10:54 Interval history: Follow-up for acute kidney injury/acute renal failure and hypernatremia. Some improvement in renal function with better urine output noted in the last 24 hours; able to be weaned off levophed with relatively stability in hemodynamics; febrile overnight; remains on room air; sodium slowly improving with current interventions/therapy to date. Exam Narrative: General: ill appearing male in NAD Heart: normal S1 and S2; no rub Lungs: clear to auscultation Abdomen: soft, nontender, nondistended, positive bowel sounds Extremities: no cyanosis or clubbing; no edema Skin: warm and dry Objective Data Vital Signs Vital Signs: Vital Signs Temp Pulse Resp BP Pulse Ox O2 Del Method 12/15/23 10:00 84 16 114/79 90 12/15/23 10:00 84 12/15/23 08:30 100 Room Air 12/15/23 08:00 54 L 18 99 Room Air 12/15/23 08:00 54 L 12/15/23 07:48 98.9 F 56 L 18 101/60 99 12/15/23 06:00 99.5 F 56 L 18 101/62 100 12/15/23 06:00 54 L 12/15/23 04:00 99.7 F H 62 18 108/63 99 12/15/23 04:00 Room Air 12/15/23 04:00 62 12/15/23 02:00 66 18 107/65 98 12/15/23 02:00 54 L 12/15/23 00:00 60 12/15/23 00:00 99.9 F H 56 L 19 104/61 96 12/15/23 00:00 Room Air 12/14/23 22:00 50 L 14 101/60 96 12/14/23 22:00 50 L 12/14/23 20:00 68 0
--- NOTE | 2023-12-15 10:54 | P.PNNP_ITS ---
Progress Note: A&P Assessment and Plan (1) Hypernatremia: Code(s): E87.0 - Hyperosmolality and hypernatremia Status: Acute Assessment and Plan: * acute * normal sodium in September 2023 * felt to be secondary to significant dehydration/volume depletion and reduced oral po/fluid intake * slow improvement with interventions to date * goal of therapy is decrease in sodium level of around 10mmol/L per 24 hours...this appears to occurring * was on D5W IVFs -- can probably d/c once tolerating tube feedings * also getting free water flushes * follow trend of sodium levels (2) Acute kidney injury: Code(s): N17.9 - Acute kidney failure, unspecified Status: Acute Assessment and Plan: * suspect multifactorial: * prerenal factors/volume depletion/dehydration * rhabdomyolysis * NSAIDs * LAW-I/BP medications use prior to admission * hemodynamic instability/hypotension * infection (UTI + bacteremia) * evaluation to date: * CT scan without obstruction * urine eosinophils negative * urine electrolytes non-prerenal (by FeNA and FeUrea) * CPK rising - follow trend * moderate proteinuria * renal ultrasound pending * follow repeat labs and UOP (3) Shock: Code(s): R57.9 - Shock, unspecified Status: Acute Assessment and Plan: * suspect a combination of sepsis and volume depletion/hypovolemia * s/p IVF resuscitation * follow culture data - bacteremia and UTI noted * on antibiotics * weaned off vasopressor support * follow trend of hemodynamics (4) Urinary tract infection: Code(s): N39.0 - Urinary tract infection, site not specified Status: Acute Assessment and Plan: * suspected based on admission UA * urine cultures with E.coli * on antibiotics (5) Encephalopathy: Code(s): G93.40 - Encephalopathy, unspecified Status: Acute Assessment and Plan: * complicated by known baseline dementia * admission head CT negative * suspect worse due hypernatremia + suspected infection/sepsis * follow mentation * possible brain MRI if no improvement (6) Rhabdomyolysis: Code(s): M62.82 - Rhabdomyolysis Status: Acute Assessment and Plan: * CK level elevated on admission * follow trend * on IVFs (7) Type 2 diabetes mellitus: Code(s): E11.9 - Type 2 diabetes mellitus without complications Status: Chronic Assessment and Plan: * follow accu-cheks * 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 Subjective Date/time seen: 12/15/23 10:54 Interval history: Follow-up for acute kidney injury/acute renal failure and hypernatremia. Some improvement in renal function with better urine output noted in the last 24 hours; able to be weaned off levophed with relatively stability in hemodynamics; febrile overnight; remains on room air; sodium slowly improving with current interventions/therapy to date. Exam Narrative: General: ill appearing male in NAD Heart: normal S1 and S2; no rub Lungs: clear to auscultation Abdomen: soft, nontender, nondistended, positive bowel sounds Extremities: no cyanosis or clubbing; no edema Skin: warm and dry Objective Data Vital Signs Vital Signs: Vital Signs Temp Pulse Resp BP Pulse Ox O2 Del Method 11/21
[2023-12-15 11:22] LABS: Glucose Point of Care 171 mg/dl (65-105)
[2023-12-15 12:41] LABS: Sodium 164 mmol/L (137-145)
--- NOTE | 2023-12-15 13:17 | P.PNIM_ITS ---
Progress Note: A&P Assessment and Plan (1) Hypernatremia: Code(s): E87.0 - Hyperosmolality and hypernatremia Status: Acute Assessment and Plan: Patient presented with severe hyponatremia likely secondary to dehydration and decreased p.o. intake Patient has been treated with IV fluids and sodium is improving He is also on free water flushes through the tube Nephrology is managing sodium and IV fluids at this time will defer management to the boxer operator (2) Sepsis: Code(s): A41.9 - Sepsis, unspecified organism Status: Acute Assessment and Plan: Shock secondary to sepsis and significant dehydration Sepsis secondary to UTI. Blood cultures are growing E coli. Patient has history of UTI with ESBL E coli He he has received IV fluid bolus and is on maintenance IV fluids targeted to control sodium improvement. Continue meropenem until susceptibilities are back Levophed weaned off at this time Hold home BP medications (3) Shock: Code(s): R57.9 - Shock, unspecified Status: Acute Assessment and Plan: Off Levophed for more than 24 hours now (4) Urinary tract infection: Code(s): N39.0 - Urinary tract infection, site not specified Status: Acute Assessment and Plan: See above (5) Acute kidney injury: Code(s): N17.9 - Acute kidney failure, unspecified Status: Acute Assessment and Plan: Acute kidney injury likely secondary to dehydration which may have progressed to ATN, rhabdomyolysis Patient [facility] which will be held Hold lisinopril Nephrology following Continue IV fluids CT abdomen pelvis was negative for any stone or obstruction Monitor urine output electrolytes and creatinine (6) Fecal impaction: Code(s): K56.41 - Fecal impaction Status: Acute Assessment and Plan: Patient now having bowel movements after initiation of laxatives through NG tube and suppository (7) Encephalopathy: Code(s): G93.40 - Encephalopathy, unspecified Status: Acute Assessment and Plan: Patient does have baseline dementia which appears to be worse this is likely secondary to toxic metabolic encephalopathy although a new stroke cannot be completely ruled out at this time Head CT was negative. If does not improve an MRI can be considered although it would not change the management in long run Continue aspirin and statin (8) Type 2 diabetes mellitus: Code(s): E11.9 - Type 2 diabetes mellitus without complications Status: Chronic Assessment and Plan: Patient was hypoglycemic and blood sugars have improved since initiation of dextrose Plan to start tube feeds (9) Dementia: Code(s): F03.90 - Unspecified dementia, unspecified severity, without behavioral disturbance, psychotic disturbance, mood disturbance, and anxiety Status: Acute Assessment and Plan: Baseline dementia likely vascular (10) Dehydration: Code(s): E86.0 - Dehydration Status: Inactive Assessment and Plan: See above (11) Rhabdomyolysis: Code(s): M62.82 - Rhabdomyolysis Status: Acute Assessment and Plan: CK level elevated Continue IV fluids Monitor (12) Thrombocytopenia: Code(s): D69.6 - Thrombocytopenia, unspecified Status: Acute Assessment and Plan: Likely multifactorial as patient has sepsis and is on antibiotics Monitor this time Continue Lovenox (13) Anemia: Code(s): D64.9 - Anemia, unspecified
[2023-12-15 15:39] LABS: Transferrin < 80 mg/dL (206-381)
[2023-12-15 15:51] LABS: IFOB Positive Control Positive; Immunochemical Fecal Occult Bl Negative (N)
[2023-12-15 15:58] LABS: Folic Acid 5.3 ng/mL (2.76->20)
[2023-12-15 16:22] LABS: Glucose Point of Care 175 mg/dl (65-105)
[2023-12-15 19:36] LABS: Sodium 162 mmol/L (137-145)
[2023-12-15] MEDS: SODIUM CHLORIDE 0.9% IV 500 ML 999 ML IV CONT (21:00)
[2023-12-15] MEDS: polyethylene glycoL 3350 17 GM POWD.PACK FEED TUBE (21:13)
[2023-12-15] MEDS: MEROPENEM 500 MG in SODIUM CHLORIDE 0.9% IV 100 ML 200 ML IVPB (21:14)
[2023-12-15 21:15] LABS: Glucose Point of Care 169 mg/dl (65-105)
[2023-12-16] VITALS (13 sets, daily range): BP systolic 82–146; BP diastolic 54–88; PULSE 56–93; RESP 14–20; TEMP 36.9–37.9; O2SAT 98–100
[2023-12-16 00:53] LABS: Glucose Point of Care 146 mg/dl (65-105)
[2023-12-16] MEDS: CENTRAL LINE FLUSH 10 ML IV PUSH ×3 (04:47→21:13)
[2023-12-16 04:58] LABS: Hemoglobin 9.8 g/dL (14.0-18.0); Mean Corpuscular HGB Conc 29.7 g/dl (32-36); Mean Corpuscular Hemoglobin 26.6 pg (26-34); Mean Corpuscular Volume 89.7 fl (80-100); Mean Platelet Volume 13.8 fl (7.4-10.4); Platelet Count Result 68 k/mm3 (150-375); Red Blood Count 3.68 M/mm3 (4.6-6.20); Red Cell Distribution Width 15.9 % (11.5-14.5); White Blood Count 8.5 K/mm3 (4.5-10.0)
[2023-12-16 05:36] LABS: Alanine Aminotransferase 26 U/L (6-50); Albumin Level 2.7 g/dL (3.5-5.1); Alkaline Phosphatase 61 U/L (38-126); Anion Gap 8 mmol/L (8-16); Aspartate Amino Transferase 66 U/L (17-59); Bilirubin,Total 0.7 mg/dL (0.2-1.3); Blood Urea Nitrogen 60 mg/dL (9-20); Calcium 7.4 mg/dL (8.4-10.2); Carbon Dioxide 21 mmol/L (22-30); Chloride 133 mmol/L (98-107); Estimated CRCL calculation 11 ml/min; Estimated Glomerular Filt Rate 15; Glucose 189 mg/dL (65-110); Magnesium 2.2 mg/dL (1.6-2.3); Phosphorus 3.4 mg/dL (2.5-4.5); Potassium 3.8 mmol/L (3.4-5.0); Sodium 162 mmol/L (137-145)
[2023-12-16 05:54] LABS: Creatine Kinase 2798 U/L (55-170)
[2023-12-16] MEDS: MIDODRINE HCL 10 MG TABLET FEED TUBE ×3 (07:50→17:25)
[2023-12-16] MEDS: ENOXAPARIN 30 MG/0.3 ML SYRINGE SUB-Q (07:51)
[2023-12-16] MEDS: ASPIRIN 81 MG CHEWABLE TABLET FEED TUBE (07:54)
[2023-12-16] MEDS: ROSUVASTATIN 10 MG TABLET FEED TUBE (07:54)
[2023-12-16] MEDS: PANTOPRAZOLE SODIUM IV 40 MG VIAL IV PUSH ×2 (07:54→21:13)
--- NOTE | 2023-12-16 08:21 | WPDINTPN ---
Progress Note: A&P Assessment and Plan (1) Hypernatremia: Code(s): E87.0 - Hyperosmolality and hypernatremia Status: Acute Assessment and Plan: Patient presented with severe hyponatremia likely secondary to dehydration and decreased p.o. intake Patient has been treated with IV fluids and sodium is improving He is also on free water flushes 200 mL every 4 hours through the tube Nephrology is managing sodium and IV fluids/free water flushes at this time will defer management to the server security administrator (2) Sepsis: Code(s): A41.9 - Sepsis, unspecified organism Status: Acute Assessment and Plan: Shock secondary to sepsis and significant dehydration Sepsis secondary to UTI. Blood cultures are growing E coli. Patient has history of UTI with ESBL E coli He he has received IV fluid bolus and is now off of IV fluids Continue meropenem until susceptibilities are back Levophed weaned off at this time Hold home BP medications Add 25% albumin (3) Shock: Code(s): R57.9 - Shock, unspecified Status: Acute Assessment and Plan: Off Levophed for more than 48 hours now (4) Urinary tract infection: Code(s): N39.0 - Urinary tract infection, site not specified Status: Acute Assessment and Plan: See above (5) Acute kidney injury: Code(s): N17.9 - Acute kidney failure, unspecified Status: Acute Assessment and Plan: Acute kidney injury likely secondary to dehydration which likely has progressed to ATN, rhabdomyolysis Patient was also on ibuprofen at [facility] which will be held Hold lisinopril Nephrology following Off IV fluids now CT abdomen pelvis was negative for any stone or obstruction. Ultrasound was unremarkable Monitor urine output electrolytes and creatinine He remains at risk of requiring BET TAKER (6) Fecal impaction: Code(s): K56.41 - Fecal impaction Status: Acute Assessment and Plan: Patient is now having bowel movements after initiation of laxatives through NG tube and suppository (7) Encephalopathy: Code(s): G93.40 - Encephalopathy, unspecified Status: Acute Assessment and Plan: Patient does have baseline dementia which appears to be worse this is likely secondary to toxic metabolic encephalopathy although a new stroke cannot be completely ruled out at this time Head CT was negative. If does not improve an MRI can be considered although it would not change the management in long run Continue aspirin and statin (8) Type 2 diabetes mellitus: Code(s): E11.9 - Type 2 diabetes mellitus without complications Status: Chronic Assessment and Plan: Patient was hypoglycemic and blood sugars have improved since initiation of dextrose He is on tube feeds now Sliding scale insulin (9) Dementia: Code(s): F03.90 - Unspecified dementia, unspecified severity, without behavioral disturbance, psychotic disturbance, mood disturbance, and anxiety Status: Acute Assessment and Plan: Baseline dementia likely vascular (10) Dehydration: Code(s): E86.0 - Dehydration Status: Inactive Assessment and Plan: See above (11) Rhabdomyolysis: Code(s): M62.82 - Rhabdomyolysis Status: Acute Assessment and Plan: CK level elevated but improving Off IV fluids Monitor (12) Thrombocytopenia: Code(s): D69.6 - Thrombocytopenia, unspecified Status: Acute Assessment and Plan: Likely multifactorial as patient has sepsis and is on antibiotics Monitor this time Continue Lovenox (13) Anemia: Code(s): D64.9 - Anemia, unspecified Status: Acute Assessment and Plan: No signs of bleeding. Drop a initially after presentation as patient received significant IV fluids Hemoglobin now stable Monitor Normal folic acid B12 and iron studies suggest anemia of chronic disease Fecal occult blood is negative Protonix Plan DVT prophylaxis -L
[2023-12-16] MEDS: ALBUMIN HUMAN 25% 25 GM/100 ML 100 ML IVPB ×3 (09:10→21:08)
[2023-12-16] MEDS: MEROPENEM 500 MG in SODIUM CHLORIDE 0.9% IV 100 ML 200 ML IVPB ×2 (09:11→21:12)
--- NOTE | 2023-12-16 10:20 | P.PNNP_ITS ---
Progress Note: A&P Assessment and Plan (1) Hypernatremia: Code(s): E87.0 - Hyperosmolality and hypernatremia Status: Acute Assessment and Plan: * acute * normal sodium in September 2023 * felt to be secondary to significant dehydration/volume depletion and reduced oral po/fluid intake * slow improvement with interventions to date * goal of therapy is decrease in sodium level of around 10mmol/L per 24 hours...this appears to occurring * off D5W IVFs * getting free water flushes - titrate to 200cc q4hr today * follow trend of repeat sodium levels (2) Acute kidney injury: Code(s): N17.9 - Acute kidney failure, unspecified Status: Acute Assessment and Plan: * no significant change * suspect multifactorial: * prerenal factors/volume depletion/dehydration * rhabdomyolysis * NSAIDs * LAW-I/BP medications use prior to admission * hemodynamic instability/hypotension * infection (UTI + bacteremia) * evaluation to date: * CT scan without obstruction * urine eosinophils negative * urine electrolytes non-prerenal (by FeNA and FeUrea) * CPK rising - follow trend * moderate proteinuria * renal ultrasound normal * follow repeat labs and UOP (3) Shock: Code(s): R57.9 - Shock, unspecified Status: Acute Assessment and Plan: * suspect a combination of sepsis and volume depletion/hypovolemia * s/p IVF resuscitation * follow culture data - bacteremia and UTI noted * on antibiotics * weaned off vasopressor support * follow trend of hemodynamics (4) Urinary tract infection: Code(s): N39.0 - Urinary tract infection, site not specified Status: Acute Assessment and Plan: * suspected based on admission UA * urine cultures with E.coli * on antibiotics (5) Encephalopathy: Code(s): G93.40 - Encephalopathy, unspecified Status: Acute Assessment and Plan: * complicated by known baseline dementia * admission head CT negative * suspect worse due hypernatremia + suspected infection/sepsis * follow mentation * possible brain MRI if no improvement (6) Rhabdomyolysis: Code(s): M62.82 - Rhabdomyolysis Status: Acute Assessment and Plan: * CK level elevated on admission * follow trend * on IVFs (7) Type 2 diabetes mellitus: Code(s): E11.9 - Type 2 diabetes mellitus without complications Status: Chronic Assessment and Plan: * follow accu-cheks * 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 Subjective Date/time seen: 12/16/23 10:20 Interval history: Follow-up for acute kidney injury/acute renal failure and hypernatremia. Slow improvement in sodium level with current interventions -- off IVFs and on tube feeds with free water flushes; BP soft but stable without the need for vasopressor therapy; mentation seems better - more awake and alert but remains non-verbal; better urine output but creatinine/renal function remains the same. Exam Narrative: General: ill appearing male in NAD Heart: normal S1 and S2; no rub Lungs: clear to auscultation Abdomen: soft, nontender, nondistended, positive bowel sounds Extremities: no cyanosis or clubbing; no edema Skin: warm and intact Objective Data Vital Signs Vital Signs: Vital Signs Tem
--- NOTE | 2023-12-16 10:20 | PM.PNNEP ---
Progress Note: A&P Assessment and Plan (1) Hypernatremia: Code(s): E87.0 - Hyperosmolality and hypernatremia Status: Acute Assessment and Plan: acute normal sodium in September 2023 felt to be secondary to significant dehydration/volume depletion and reduced oral po/fluid intake slow improvement with interventions to date goal of therapy is decrease in sodium level of around 10mmol/L per 24 hours...this appears to occurring off D5W IVFs getting free water flushes - titrate to 200cc q4hr today follow trend of repeat sodium levels (2) Acute kidney injury: Code(s): N17.9 - Acute kidney failure, unspecified Status: Acute Assessment and Plan: no significant change suspect multifactorial: prerenal factors/volume depletion/dehydration rhabdomyolysis NSAIDs LAW-I/BP medications use prior to admission hemodynamic instability/hypotension infection (UTI + bacteremia) evaluation to date: CT scan without obstruction urine eosinophils negative urine electrolytes non-prerenal (by FeNA and FeUrea) CPK rising - follow trend moderate proteinuria renal ultrasound normal follow repeat labs and UOP (3) Shock: Code(s): R57.9 - Shock, unspecified Status: Acute Assessment and Plan: suspect a combination of sepsis and volume depletion/hypovolemia s/p IVF resuscitation follow culture data - bacteremia and UTI noted on antibiotics weaned off vasopressor support follow trend of hemodynamics (4) Urinary tract infection: Code(s): N39.0 - Urinary tract infection, site not specified Status: Acute Assessment and Plan: suspected based on admission UA urine cultures with E.coli on antibiotics (5) Encephalopathy: Code(s): G93.40 - Encephalopathy, unspecified Status: Acute Assessment and Plan: complicated by known baseline dementia admission head CT negative suspect worse due hypernatremia + suspected infection/sepsis follow mentation possible brain MRI if no improvement (6) Rhabdomyolysis: Code(s): M62.82 - Rhabdomyolysis Status: Acute Assessment and Plan: CK level elevated on admission follow trend on IVFs (7) Type 2 diabetes mellitus: Code(s): E11.9 - Type 2 diabetes mellitus without complications Status: Chronic Assessment and Plan: follow accu-cheks 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 Subjective Date/time seen: 12/16/23 10:20 Interval history: Follow-up for acute kidney injury/acute renal failure and hypernatremia. Slow improvement in sodium level with current interventions -- off IVFs and on tube feeds with free water flushes; BP soft but stable without the need for vasopressor therapy; mentation seems better - more awake and alert but remains non-verbal; better urine output but creatinine/renal function remains the same. Exam Narrative: General: ill appearing male in NAD Heart: normal S1 and S2; no rub Lungs: clear to auscultation Abdomen: soft, nontender, nondistended, positive bowel sounds Extremities: no cyanosis or clubbing; no edema Skin: warm and intact Objective Data Vital Signs Vital Signs: Vital Signs Temp Pulse Resp BP Pulse Ox O2 Del Method 12/16/23 10:00 60 16 111/86 100 12/16/23 10:00 60 12/16/23 08:00 98.7 F 93 16 98/66 L 100 12/16/23 08:00 100 Room Air 12/16/23 08:00 92 12/16/23 06:00 92 14 82/70 L 100 12/16/23 06:00 90 12/16/23 04:00 99.2 F 56 L 18 117/77 100 12/16/23 04:00 56 L 12/16/23 03:34 84/54 L 12/16/23 03:06 Room Air 12/16/23 00:00 Room Air 12/16/23 02:00 58 L 20 114/64 100 12/16/23 00:00 98.8 F 58 L 17 91/63 L 100 12/15/23 22:00 60 20 93/67 L 100 12/15/23 20:00 99.2 F 63 21 H 84/54 L 99 12/16/23 02:00 58 L
--- NOTE | 2023-12-16 10:51 | PCNFU ---
Nutrition Follow-Up Complete: Inadequate energy intake related to acute illness, labs as evidenced by need for full tube feeding Goal: Meet estimated protein energy needs Labs trending toward normal Patient is progressing towards goal. We will continue current goal. Pt current nutrition is Nepro at 30 ml/hr. Last recorded weight is 64.4 kg, up from 63 kg on admit. Bowel Motility:+BM reported 12/16 Labs Reviewed: BUN 60, Cr 4.7,Glu 189, Na 162 Meds Noted:Protonix, Zofran, Lovenox, Crestor Skin: WNL Additional Notes: Patient remains on NGT tube feedings of Nepro at 40ml/hr and tolerating per nursing. Tube feedings of Nepro at 40 ml/hr are providing 1584 kcals/71 gms protein/639 ml water. Flush 200 ml q 4 hours. Flushes are being managed by nephrology. Tube feedings are meeting 100% kcal needs at 25 kcal/kg and 100% protein needs at 1.0 kcal/kg. Monitoring labs, tube feeding tolerance, weights, intake/output, diet advancement, plan of care Follow daily in ICU rounds, reassess Tuesdays and Fridays per policy
[2023-12-16 10:56] LABS: Immature Reticulocyte Fraction 13.5 % (3.0-15.9); Reticulocyte Hemoglobin Conten 30.8 pg (28.2-35.7); Reticulocyte Percent 0.56 % (0.7-4.3); Reticulocytes Absolute 0.02 M/mm3 (0.02-0.1)
[2023-12-16 11:49] LABS: Glucose Point of Care 151 mg/dl (65-105)
--- NOTE | 2023-12-16 13:53 | ECG_ITS ---
Measurements Intervals [place] Rate: 69 P: 31 MO: 131 QRS: -32 QRSD: 82 T: -32 QT: 396 QTc: 425 Interpretive Statements SINUS RHYTHM WITH SINUS ARRHYTHMIA LOW QRS VOLTAGE [QRS DEFLECTION < 0.5/1.0 mV IN LIMB/CHEST LEADS] EVIDENCE OF PREVIOUS ANTERIOR AND INFERIOR INFARCTION NONSPECIFIC T-WAVE ABNORMALITY ABNORMAL ECG WARNING: DATA QUALITY MAY AFFECT INTERPRETATION COMPARED TO ECG 12/13/2023 14:26:44 NO OBVIOUS CHANGE HOWEVER PREVIOUS ECG WAS OF VERY POOR QUALITY Electronically Signed On 12-16-2023 15:42:27 [employer] by Robinson Mendieta M.D.
--- NOTE | 2023-12-16 14:23 | PC.NURSE ---
Pt having irregular heart rate. P waves are not consistently present. Notified Dr. Viveros. EKG ordered and reviewed. Will continue to monitor
[2023-12-16 16:23] LABS: Sodium 162 mmol/L (137-145)
[2023-12-16 18:02] LABS: Glucose Point of Care 179 mg/dl (65-105)
[2023-12-16 22:39] LABS: Sodium 160 mmol/L (137-145)
[2023-12-16 23:51] LABS: Glucose Point of Care 195 mg/dl (65-105)
[2023-12-17] VITALS (13 sets, daily range): BP systolic 98–150; BP diastolic 62–95; PULSE 56–67; RESP 12–19; TEMP 36.2–37.9; O2SAT 92–100
[2023-12-17] MEDS: ALBUMIN HUMAN 25% 25 GM/100 ML 100 ML IVPB (04:03)
[2023-12-17 05:12] LABS: Hematocrit 27.3 % (42.0-52.0); Hemoglobin 8.4 g/dL (14.0-18.0); Immature Platelet Fraction Pct 13.2 % (0.9-11.2); Mean Corpuscular HGB Conc 30.8 g/dl (32-36); Mean Corpuscular Hemoglobin 26.8 pg (26-34); Mean Corpuscular Volume 87.2 fl (80-100); Mean Platelet Volume 12.7 fl (7.4-10.4); Platelet Count Result 59 k/mm3 (150-375); Red Blood Count 3.13 M/mm3 (4.6-6.20); Red Cell Distribution Width 15.8 % (11.5-14.5)
[2023-12-17 05:53] LABS: Alanine Aminotransferase 20 U/L (6-50); Albumin Level 3.4 g/dL (3.5-5.1); Alkaline Phosphatase 56 U/L (38-126); Anion Gap 9 mmol/L (8-16); Aspartate Amino Transferase 44 U/L (17-59); Bilirubin,Total 0.6 mg/dL (0.2-1.3); Blood Urea Nitrogen 61 mg/dL (9-20); Carbon Dioxide 23 mmol/L (22-30); Chloride 130 mmol/L (98-107); Creatine Kinase 841 U/L (55-170); Estimated CRCL calculation 11 ml/min; Estimated Glomerular Filt Rate 15; Glucose 196 mg/dL (65-110); Magnesium 2.4 mg/dL (1.6-2.3); Phosphorus 2.8 mg/dL (2.5-4.5); Potassium 3.4 mmol/L (3.4-5.0); Sodium 162 mmol/L (137-145)
[2023-12-17] MEDS: CENTRAL LINE FLUSH 10 ML IV PUSH ×3 (05:57→20:52)
[2023-12-17] MEDS: DEXTROSE 5% IN WATER 500 ML 75 ML IV CONT (06:44)
--- NOTE | 2023-12-17 08:19 | WPDINTPN ---
Progress Note: A&P Assessment and Plan (1) Hypernatremia: Code(s): E87.0 - Hyperosmolality and hypernatremia Status: Acute Assessment and Plan: Patient presented with severe hyponatremia likely secondary to dehydration and decreased p.o. intake Patient has been treated with IV fluids and sodium is improving He is also on free water flushes 250 mL every 4 hours through the tube and is getting D5 water this morning Nephrology is managing sodium and IV fluids/free water flushes at this time will defer management to the director park (2) Sepsis: Code(s): A41.9 - Sepsis, unspecified organism Status: Acute Assessment and Plan: Shock secondary to sepsis and significant dehydration Sepsis secondary to UTI. Blood cultures are growing E coli. Patient has history of UTI with ESBL E coli but current is pansensitive He he has received IV fluid bolus and is now off of IV fluids Will switch meropenem to Rocephin Levophed weaned off at this time Hold home BP medications Will discontinue 25% albumin (3) Shock: Code(s): R57.9 - Shock, unspecified Status: Acute Assessment and Plan: Off Levophed for more than 3 days hours now (4) Urinary tract infection: Code(s): N39.0 - Urinary tract infection, site not specified Status: Acute Assessment and Plan: See above (5) Acute kidney injury: Code(s): N17.9 - Acute kidney failure, unspecified Status: Acute Assessment and Plan: Acute kidney injury likely secondary to dehydration which likely has progressed to ATN, rhabdomyolysis Patient was also on ibuprofen at correction which will be held Hold lisinopril Nephrology following Off IV fluids now CT abdomen pelvis was negative for any stone or obstruction. Ultrasound was unremarkable His creatinine remains elevated although urine output has improved. His CK level has improved Monitor urine output electrolytes and creatinine He remains at risk of requiring PRE SCHOOL MANAGER (6) Fecal impaction: Code(s): K56.41 - Fecal impaction Status: Acute Assessment and Plan: Patient is now having bowel movements after initiation of laxatives through NG tube and suppository (7) Encephalopathy: Code(s): G93.40 - Encephalopathy, unspecified Status: Acute Assessment and Plan: Patient does have baseline dementia which appears to be worse this is likely secondary to toxic metabolic encephalopathy although a new stroke cannot be completely ruled out at this time Head CT was negative. If does not improve an MRI can be considered although it would not change the management in long run Continue aspirin and statin His mental status is overall improved to an extent but he still does not respond consistently or able to provide any history or follow commands consistently (8) Type 2 diabetes mellitus: Code(s): E11.9 - Type 2 diabetes mellitus without complications Status: Chronic Assessment and Plan: Patient was hypoglycemic and blood sugars have improved since initiation of dextrose He is on tube feeds now Sliding scale insulin (9) Dementia: Code(s): F03.90 - Unspecified dementia, unspecified severity, without behavioral disturbance, psychotic disturbance, mood disturbance, and anxiety Status: Acute Assessment and Plan: Baseline dementia likely vascular (10) Dehydration: Code(s): E86.0 - Dehydration Status: Inactive Assessment and Plan: See above (11) Rhabdomyolysis: Code(s): M62.82 - Rhabdomyolysis Status: Acute Assessment and Plan: CK level elevated but improving Off IV fluids Monitor (12) Thrombocytopenia: Code(s): D69.6 - Thrombocytopenia, unspecified Status: Acute Assessment and Plan: Likely multifactorial as patient has sepsis and is on antibiotics Monitor this time Will hold lovenox (13) Anemia: Code(s): D64.9 - Anemia, unspecified
[2023-12-17] MEDS: ROSUVASTATIN 10 MG TABLET FEED TUBE (08:35)
[2023-12-17] MEDS: MIDODRINE HCL 10 MG TABLET FEED TUBE ×3 (08:35→17:28)
[2023-12-17] MEDS: POTASSIUM CHLORIDE 20 MEQ PACKET (FOR LIQUID) 40 MEQ FEED TUBE (08:35)
[2023-12-17] MEDS: PANTOPRAZOLE SODIUM IV 40 MG VIAL IV PUSH ×2 (08:35→20:51)
[2023-12-17] MEDS: ASPIRIN 81 MG CHEWABLE TABLET FEED TUBE (08:35)
[2023-12-17] MEDS: cefTRIAXone 2 GM/NS 100 ML 2 GM/100 ML BAG IVPB (08:36)
--- NOTE | 2023-12-17 10:21 | PCFNICU ---
ICU Rounding Note: Pt current nutrition is Nepro at 40ml/hr. Last recorded weight is 64.2 kg, up from 63 kg on admit. Bowel Motility: +BM reported 12/17 Labs Reviewed: Glu 196, Cr 4.7, BUN 61, GFR 15, NA 162, Alb 3.4, Hct 27.3,Hgb 8.4 Meds Noted: Protonix, Lovenox, Crestor Skin: WNL Additional Notes: Patient is non-verbal remains on tube feedings of Nepro at 40 ml/hr. Tolerating tube feedings per nursing. Flush being managed by nephrology. Increased from 200 ml q 4 hours to 250 ml q 4 hours. Agree with diet orders. Monitoring labs, tube feeding tolerance, weights, intake/output, diet advancement, plan of care Follow daily in ICU rounds, reassess Tuesdays and Fridays per policy.
[2023-12-17 12:06] LABS: Glucose Point of Care 238 mg/dl (65-105)
[2023-12-17] MEDS: INSULIN ASPART (*BKC) 100 UNITS/ML SUB-Q ×2 (12:24→23:36)
--- NOTE | 2023-12-17 12:42 | P.PNNP_ITS ---
Progress Note: A&P Assessment and Plan (1) Hypernatremia: Code(s): E87.0 - Hyperosmolality and hypernatremia Status: Acute Assessment and Plan: * acute * normal sodium in September 2023 * felt to be secondary to significant dehydration/volume depletion and reduced oral po/fluid intake * slow improvement with interventions to date * goal of therapy is decrease in sodium level of around 10mmol/L per 24 hours...this appears to occurring * short run of D5W IVFs today * getting free water flushes - titrate to 250cc q4hr today * follow trend of repeat sodium levels (2) Acute kidney injury: Code(s): N17.9 - Acute kidney failure, unspecified Status: Acute Assessment and Plan: * no significant change * suspect multifactorial: * prerenal factors/volume depletion/dehydration * rhabdomyolysis * NSAIDs * LAW-I/BP medications use prior to admission * hemodynamic instability/hypotension * infection (UTI + bacteremia) * evaluation to date: * CT scan without obstruction * urine eosinophils negative * urine electrolytes non-prerenal (by FeNA and FeUrea) * CPK rising - follow trend * moderate proteinuria * renal ultrasound normal * follow repeat labs and UOP (3) Shock: Code(s): R57.9 - Shock, unspecified Status: Acute Assessment and Plan: * suspect a combination of sepsis and volume depletion/hypovolemia * s/p IVF resuscitation * follow culture data - bacteremia and UTI noted * on antibiotics * weaned off vasopressor support * follow trend of hemodynamics (4) Urinary tract infection: Code(s): N39.0 - Urinary tract infection, site not specified Status: Acute Assessment and Plan: * suspected based on admission UA * urine cultures with E.coli * on antibiotics (5) Encephalopathy: Code(s): G93.40 - Encephalopathy, unspecified Status: Acute Assessment and Plan: * complicated by known baseline dementia * admission head CT negative * suspect worse due hypernatremia + infection/sepsis * follow mentation * possible brain MRI if no improvement (6) Rhabdomyolysis: Code(s): M62.82 - Rhabdomyolysis Status: Acute Assessment and Plan: * CK level elevated on admission * follow trend (7) Type 2 diabetes mellitus: Code(s): E11.9 - Type 2 diabetes mellitus without complications Status: Chronic Assessment and Plan: * follow accu-cheks * glycemic control per hospitalists/surgical garment inspector Will continue to follow. Subjective Date/time seen: 12/17/23 12:42 Interval history: Follow-up for acute kidney injury/acute renal failure and hypernatremia. Slow improvement in sodium level with current interventions -- D5W IVFs being given today and free water flushes increased this AM; stable hemodynamics noted; mentation seems better in general but nonverbal; no significant change in creatinine/renal function but appears to be making reasonable urine output. Exam Narrative: General: ill appearing male in NAD Heart: normal S1 and S2; no rub Lungs: clear to auscultation Abdomen: soft, nontender, nondistended, positive bowel sounds Extremities: no cyanosis or clubbing; no edema Skin: no rash Objective Data Vital Signs Vital Signs: Vital Signs Temp Pulse Resp BP Pulse O
--- NOTE | 2023-12-17 12:42 | PM.PNNEP ---
Progress Note: A&P Assessment and Plan (1) Hypernatremia: Code(s): E87.0 - Hyperosmolality and hypernatremia Status: Acute Assessment and Plan: acute normal sodium in September 2023 felt to be secondary to significant dehydration/volume depletion and reduced oral po/fluid intake slow improvement with interventions to date goal of therapy is decrease in sodium level of around 10mmol/L per 24 hours...this appears to occurring short run of D5W IVFs today getting free water flushes - titrate to 250cc q4hr today follow trend of repeat sodium levels (2) Acute kidney injury: Code(s): N17.9 - Acute kidney failure, unspecified Status: Acute Assessment and Plan: no significant change suspect multifactorial: prerenal factors/volume depletion/dehydration rhabdomyolysis NSAIDs LAW-I/BP medications use prior to admission hemodynamic instability/hypotension infection (UTI + bacteremia) evaluation to date: CT scan without obstruction urine eosinophils negative urine electrolytes non-prerenal (by FeNA and FeUrea) CPK rising - follow trend moderate proteinuria renal ultrasound normal follow repeat labs and UOP (3) Shock: Code(s): R57.9 - Shock, unspecified Status: Acute Assessment and Plan: suspect a combination of sepsis and volume depletion/hypovolemia s/p IVF resuscitation follow culture data - bacteremia and UTI noted on antibiotics weaned off vasopressor support follow trend of hemodynamics (4) Urinary tract infection: Code(s): N39.0 - Urinary tract infection, site not specified Status: Acute Assessment and Plan: suspected based on admission UA urine cultures with E.coli on antibiotics (5) Encephalopathy: Code(s): G93.40 - Encephalopathy, unspecified Status: Acute Assessment and Plan: complicated by known baseline dementia admission head CT negative suspect worse due hypernatremia + infection/sepsis follow mentation possible brain MRI if no improvement (6) Rhabdomyolysis: Code(s): M62.82 - Rhabdomyolysis Status: Acute Assessment and Plan: CK level elevated on admission follow trend (7) Type 2 diabetes mellitus: Code(s): E11.9 - Type 2 diabetes mellitus without complications Status: Chronic Assessment and Plan: follow accu-cheks glycemic control per hospitalists/spool sorter Will continue to follow. Subjective Date/time seen: 12/17/23 12:42 Interval history: Follow-up for acute kidney injury/acute renal failure and hypernatremia. Slow improvement in sodium level with current interventions -- D5W IVFs being given today and free water flushes increased this AM; stable hemodynamics noted; mentation seems better in general but nonverbal; no significant change in creatinine/renal function but appears to be making reasonable urine output. Exam Narrative: General: ill appearing male in NAD Heart: normal S1 and S2; no rub Lungs: clear to auscultation Abdomen: soft, nontender, nondistended, positive bowel sounds Extremities: no cyanosis or clubbing; no edema Skin: no rash Objective Data Vital Signs Vital Signs: Vital Signs Temp Pulse Resp BP Pulse Ox O2 Del Method FiO2 12/17/23 12:00 98 Room Air 12/17/23 12:00 98.7 F 59 L 16 128/73 94 12/17/23 10:00 58 L 12/17/23 08:00 98 Room Air 12/17/23 08:00 63 12/17/23 10:00 98.5 F 62 18 138/73 92 12/17/23 08:00 98.6 F 58 L 16 128/72 100 12/17/23 06:00 61 18 117/82 97 12/17/23 06:00 61 12/17/23 04:00 59 L 12/17/23 04:00 60 19 100 Room Air 12/17/23 04:00 98.8 F 60 19 118/71 96 12/17/23 02:00 59 L 17 106/81 100 12/17/23 02:00 59 L 12/17/23 00:00 97.2 F L 61 18 129/77 100 12/17/23 00:00 67 18 100 Room Air
--- NOTE | 2023-12-17 14:32 | PM.IMPN ---
Progress Note: A&P Assessment and Plan (1) Hypernatremia: Code(s): E87.0 - Hyperosmolality and hypernatremia Status: Acute Assessment and Plan: Patient presented with altered mental status and found to have severe hyponatremia likely secondary to dehydration and decreased p.o. intake Sodium 174. Started on IV fluids with sodium improving Free water flushes 250 mL every 4 hours through the tube and is getting D5 water Nephrology is managing sodium and IV fluids/free water flushes Spoke with dtr and discussed need for feeding tube since this will most likely recur due patient's poor oral intake. (2) Sepsis: Code(s): A41.9 - Sepsis, unspecified organism Status: Acute Assessment and Plan: Shock secondary to sepsis and significant dehydration. Sepsis secondary to UTI. BCx growing E coli. UCx growing EColi that is mostly mota-sensitive Meropenem changed to Rocephin Levophed weaned off and Albumin stopped; remains on Midodrine Holding home BP medications Follow (3) Shock: Code(s): R57.9 - Shock, unspecified Status: Acute Assessment and Plan: As above. Off Levophed / Albumin stopped. Continue midodrine. (4) Urinary tract infection: Code(s): N39.0 - Urinary tract infection, site not specified Status: Acute Assessment and Plan: As above Contineu IV abx (5) Acute kidney injury: Code(s): N17.9 - Acute kidney failure, unspecified Status: Acute Assessment and Plan: Last year, patient with Cr 1.2-1.4 range. Cr 4.9 on admission. RENATE likely secondary to dehydration, ATN, rhabdomyolysis, meds (ibuprofen, ACEI) CT abdomen pelvis was negative for any stone or obstruction. Ultrasound was unremarkable Holding ibuprofen and lisinopril Creatine kinase trending down. Nephrology following Cr slightly better Monitor urine output, electrolytes and creatinine He remains at risk of requiring STILL CLEANER. Spoke with dtr and discussed the possibility of HD. (6) Fecal impaction: Code(s): K56.41 - Fecal impaction Status: Acute Assessment and Plan: CT scan showing likely fecal impaction. Patient is now having bowel movements after initiation of laxatives through NG tube and suppository Follow (7) Encephalopathy: Code(s): G93.40 - Encephalopathy, unspecified Status: Acute Assessment and Plan: Patient brought to ED due to altered mental status. He does have baseline dementia but worse Head CT was negative. Changes due to toxic metabolic encephalopathy from sepsis, septic chock and electrolyte disturbance His mental status is overall improved. Contineu to monitor (8) Type 2 diabetes mellitus: Code(s): E11.9 - Type 2 diabetes mellitus without complications Status: Chronic Assessment and Plan: Patient was hypoglycemic and blood sugars have improved since initiation of dextrose He is on tube feeds now The patient's blood glucose was reviewed on 12/17 Glucose remains well controlled. Continue AccuCheks covering with sliding scale. Hypoglycemia protocol available as needed. Continue current medications. (9) Rhabdomyolysis: Code(s): M62.82 - Rhabdomyolysis Status: Acute Assessment and Plan: CK level elevated to 5300. He was on IV fluids. Levels trending down. He remains on Crestor. Hold for now (10) Thrombocytopenia: Code(s): D69.6 - Thrombocytopenia, unspecified Status: Acute Assessment and Plan: Likely multifactorial related to sepsis No evidence of bleeding. Follow (11) Anemia: Code(s): D64.9 - Anemia, unspecified Status: Acute Assessment and Plan: Hgh 12.1 on admisison and dropped to 8 ranged. No signs of bleeding. Drop due to severe dehydration and hemo-concentration Normal folic acid B12 and iron studies suggest anemia of chronic disease Fecal occult blood is negative Hemoglobin low but sta
[2023-12-17 14:53] LABS: Anion Gap 6 mmol/L (8-16); Blood Urea Nitrogen 58 mg/dL (9-20); Calcium 7.8 mg/dL (8.4-10.2); Carbon Dioxide 25 mmol/L (22-30); Chloride 128 mmol/L (98-107); Estimated CRCL calculation 11 ml/min; Estimated Glomerular Filt Rate 16; Glucose 184 mg/dL (65-110); Potassium 3.7 mmol/L (3.4-5.0); Sodium 159 mmol/L (137-145)
[2023-12-17 17:37] LABS: Glucose Point of Care 190 mg/dl (65-105)
[2023-12-17 22:21] LABS: Anion Gap 5 mmol/L (8-16); Blood Urea Nitrogen 58 mg/dL (9-20); Calcium 7.8 mg/dL (8.4-10.2); Carbon Dioxide 23 mmol/L (22-30); Chloride 127 mmol/L (98-107); Estimated CRCL calculation 11 ml/min; Estimated Glomerular Filt Rate 16; Glucose 203 mg/dL (65-110); Potassium 3.7 mmol/L (3.4-5.0); Sodium 155 mmol/L (137-145)
--- NOTE | 2023-12-17 22:46 | PC.NURSE ---
Dr. Maciel notified of 2199 Na result of 155. No new orders at this time. Will recheck with morning labs.
[2023-12-17 23:40] LABS: Glucose Point of Care 207 mg/dl (65-105)
[2023-12-18] VITALS (14 sets, daily range): BP systolic 97–142; BP diastolic 59–85; PULSE 54–93; RESP 14–17; TEMP 36.5–37.9; O2SAT 97–100
[2023-12-18 05:53] LABS: Hematocrit 27.7 % (42.0-52.0); Hemoglobin 8.4 g/dL (14.0-18.0); Immature Platelet Fraction Pct 14.3 % (0.9-11.2); Mean Corpuscular HGB Conc 30.3 g/dl (32-36); Mean Corpuscular Hemoglobin 26.7 pg (26-34); Mean Corpuscular Volume 87.9 fl (80-100); Platelet Count Result 59 k/mm3 (150-375); Red Blood Count 3.15 M/mm3 (4.6-6.20); Red Cell Distribution Width 15.7 % (11.5-14.5); White Blood Count 6.7 K/mm3 (4.5-10.0)
[2023-12-18 06:02] LABS: Alanine Aminotransferase 21 U/L (6-50); Albumin Level 3.1 g/dL (3.5-5.1); Alkaline Phosphatase 65 U/L (38-126); Anion Gap 5 mmol/L (8-16); Aspartate Amino Transferase 44 U/L (17-59); Bilirubin,Total 0.4 mg/dL (0.2-1.3); Blood Urea Nitrogen 58 mg/dL (9-20); Carbon Dioxide 24 mmol/L (22-30); Chloride 127 mmol/L (98-107); Creatine Kinase 612 U/L (55-170); Estimated CRCL calculation 13 ml/min; Estimated Glomerular Filt Rate 18; Glucose 203 mg/dL (65-110); Magnesium 2.4 mg/dL (1.6-2.3); Phosphorus 2.6 mg/dL (2.5-4.5); Potassium 3.6 mmol/L (3.4-5.0); Sodium 156 mmol/L (137-145)
[2023-12-18] MEDS: CENTRAL LINE FLUSH 10 ML IV PUSH ×3 (06:02→20:18)
[2023-12-18 06:09] LABS: Glucose Point of Care 197 mg/dl (65-105)
[2023-12-18] MEDS: DEXTROSE 5% IN WATER 500 ML 100 ML IV CONT (07:32)
--- NOTE | 2023-12-18 08:19 | WPDINTPN ---
Progress Note: A&P Assessment and Plan (1) Hypernatremia: Code(s): E87.0 - Hyperosmolality and hypernatremia Status: Acute Assessment and Plan: Patient presented with severe hyponatremia likely secondary to dehydration and decreased p.o. intake Patient has been treated with IV fluids and sodium is improving He is also on free water flushes 250 mL every 4 hours through the tube and is getting D5 water this morning Nephrology is managing sodium and IV fluids/free water flushes at this time will defer management to the coal passer (2) Sepsis: Code(s): A41.9 - Sepsis, unspecified organism Status: Acute Assessment and Plan: Shock secondary to sepsis and significant dehydration Sepsis secondary to UTI. Blood and urine cultures are growing E coli. Patient has history of UTI with ESBL E coli but current sample is pansensitive He he has received IV fluid bolus and is now off of IV fluids Switched meropenem to Rocephin 12/17 Levophed weaned off many days ago Hold home BP medications Will discontinue 25% albumin (3) Shock: Code(s): R57.9 - Shock, unspecified Status: Acute Assessment and Plan: Off Levophed for more than 3 days hours now (4) Urinary tract infection: Code(s): N39.0 - Urinary tract infection, site not specified Status: Acute Assessment and Plan: See above (5) Acute kidney injury: Code(s): N17.9 - Acute kidney failure, unspecified Status: Acute Assessment and Plan: Acute kidney injury likely secondary to dehydration which likely has progressed to ATN, rhabdomyolysis Patient was also on ibuprofen at [facility] living which will be held Hold lisinopril Nephrology following Off IV fluids now CT abdomen pelvis was negative for any stone or obstruction. Ultrasound was unremarkable His creatinine remains elevated but is improving and urine output has improved. His CK level has improved Monitor urine output electrolytes and creatinine He remains at risk of requiring UI DEVELOPER WITH ANGULAR JS (6) Fecal impaction: Code(s): K56.41 - Fecal impaction Status: Acute Assessment and Plan: Patient is now having bowel movements after initiation of laxatives through NG tube and suppository (7) Encephalopathy: Code(s): G93.40 - Encephalopathy, unspecified Status: Acute Assessment and Plan: Patient does have baseline dementia which appears to be worse this is likely secondary to toxic metabolic encephalopathy although a new stroke cannot be completely ruled out at this time Head CT was negative. If does not improve an MRI can be considered although it would not change the management in long run Continue aspirin and statin His mental status has been gradually improving and overall improved to an extent but he is now answering some questions and following commands. (8) Type 2 diabetes mellitus: Code(s): E11.9 - Type 2 diabetes mellitus without complications Status: Chronic Assessment and Plan: Patient was hypoglycemic and blood sugars have improved since initiation of dextrose He is on tube feeds now Sliding scale insulin (9) Dementia: Code(s): F03.90 - Unspecified dementia, unspecified severity, without behavioral disturbance, psychotic disturbance, mood disturbance, and anxiety Status: Acute Assessment and Plan: Baseline dementia likely vascular (10) Dehydration: Code(s): E86.0 - Dehydration Status: Inactive Assessment and Plan: See above (11) Rhabdomyolysis: Code(s): M62.82 - Rhabdomyolysis Status: Acute Assessment and Plan: CK level elevated but improving Off IV fluids Monitor (12) Thrombocytopenia: Code(s): D69.6 - Thrombocytopenia, unspecified Status: Acute Assessment and Plan: Likely multifactorial as patient has sepsis and is on antibiotics Monitor this time Will hold lovenox (13) Anemia: Code(s): D64.9 - Anemia
[2023-12-18] MEDS: cefTRIAXone 2 GM/NS 100 ML 2 GM/100 ML BAG IVPB (08:47)
[2023-12-18] MEDS: PANTOPRAZOLE SODIUM IV 40 MG VIAL IV PUSH ×2 (08:47→20:17)
[2023-12-18] MEDS: ASPIRIN 81 MG CHEWABLE TABLET FEED TUBE (08:47)
[2023-12-18] MEDS: POTASSIUM CHLORIDE 20 MEQ PACKET (FOR LIQUID) 40 MEQ FEED TUBE (08:47)
[2023-12-18] MEDS: MIDODRINE HCL 10 MG TABLET FEED TUBE ×3 (08:47→18:08)
--- NOTE | 2023-12-18 10:37 | PCSTNOTE ---
Please refer to the Bedside Swallow Evaluation in the EMR. Please note, silent aspiration cannot be ruled out at bedside.
--- NOTE | 2023-12-18 11:19 | PCFNICU ---
ICU Rounding Note: Pt current nutrition is Nepro at 40 ml/hr. Last recorded weight is 64.2 kg, up from 63 kg on admit. Bowel Motility: +BM reported 12/17 Labs Reviewed: Glu 203, NA 156, GFR 18, Cr 4.0, Alb 3.1 Meds Noted: Protonix, Lovenox, Crestor. Skin: WNL Additional Notes: Patient remains on tube feedings of Nepro at 40 ml/hr and tolerating per nursing. Flush 30 ml q 4 hours. Bedside Swallow performed today, recommending MBS. At this time plans to continue tube feedings until patient is able to perform testing. Monitoring labs, tube feeding tolerance, weights, intake/output, diet advancement, plan of care Follow daily in ICU rounds, reassess Tuesdays and Fridays per policy.
[2023-12-18 12:06] LABS: Glucose Point of Care 281 mg/dl (65-105)
[2023-12-18] MEDS: INSULIN ASPART (*BKC) 100 UNITS/ML SUB-Q (12:24)
--- NOTE | 2023-12-18 12:52 | PM.PNNEP ---
Progress Note: A&P Assessment and Plan (1) Hypernatremia: Code(s): E87.0 - Hyperosmolality and hypernatremia Status: Acute Assessment and Plan: acute - normal sodium in September 2023 felt to be secondary to significant dehydration/volume depletion and reduced oral po/fluid intake slow improvement with interventions to date goal of therapy is decrease in sodium level of around 10mmol/L per 24 hours...this appears to occurring another short run of D5W IVFs today getting free water flushes - titrate as needed follow trend of repeat sodium levels (2) Acute kidney injury: Code(s): N17.9 - Acute kidney failure, unspecified Status: Acute Assessment and Plan: slight improvement today suspect multifactorial: prerenal factors/volume depletion/dehydration rhabdomyolysis NSAIDs LAW-I/BP medications use prior to admission hemodynamic instability/hypotension infection (UTI + bacteremia) evaluation to date: CT scan without obstruction urine eosinophils negative urine electrolytes non-prerenal (by FeNA and FeUrea) CPK elevated initially - now down trending moderate proteinuria renal ultrasound normal follow repeat labs and UOP (3) Shock: Code(s): R57.9 - Shock, unspecified Status: Acute Assessment and Plan: resolved suspect a combination of sepsis and volume depletion/hypovolemia s/p IVF resuscitation follow culture data - bacteremia and UTI noted on antibiotics weaned off vasopressor support follow trend of hemodynamics (4) Urinary tract infection: Code(s): N39.0 - Urinary tract infection, site not specified Status: Acute Assessment and Plan: suspected based on admission UA urine cultures with E.coli on antibiotics (5) Encephalopathy: Code(s): G93.40 - Encephalopathy, unspecified Status: Acute Assessment and Plan: complicated by known baseline dementia admission head CT negative suspect worse due hypernatremia + infection/sepsis follow mentation possible brain MRI if no improvement (6) Rhabdomyolysis: Code(s): M62.82 - Rhabdomyolysis Status: Acute Assessment and Plan: CK level elevated on admission follow trend (7) Type 2 diabetes mellitus: Code(s): E11.9 - Type 2 diabetes mellitus without complications Status: Chronic Assessment and Plan: follow accu-cheks glycemic control per hospitalists/deputy sheriff civil division Will continue to follow. Subjective Date/time seen: 12/18/23 12:52 Interval history: Follow-up for acute kidney injury/acute renal failure and hypernatremia. Sodium level continues to slowly improve with current therapy/intervention; getting another run of D5W IVFs this morning; mentation seems better in general but still remains quite confused; no apparent distress noted; no issues/events overnight or earlier this morning; making reasonably urine output and creatinine slightly better today. Exam Narrative: General: ill appearing male in NAD Heart: normal S1 and S2; no rub Lungs: clear to auscultation Abdomen: soft, nontender, nondistended, positive bowel sounds Extremities: no cyanosis or clubbing; no edema Skin: no nodules Objective Data Vital Signs Vital Signs: Vital Signs Temp Pulse Resp BP Pulse Ox O2 Del Method FiO2 12/18/23 12:00 98 F 54 L 16 123/85 98 12/18/23 10:00 55 L 12/18/23 08:00 98 Room Air 12/18/23 08:00 54 L 12/18/23 07:42 97.7 F 75 14 125/80 98 12/18/23 06:00 57 L 15 121/69 99 12/18/23 06:00 67 12/18/23 04:00 57 L 12/18/23 04:00 99.8 F H 54 L 14 118/59 L 97 12/18/23 04:00 57 L 16 97 Room Air 28 12/18/23 02:00 57 L 16 97/61 L 97 12/18/23 02:00 57 L 12/18/23 00:00 61 12/18/23 00:00 100.3 F H 60 17 110/73 98 12/18/23 00:00 57 L 17 100 Room Air
--- NOTE | 2023-12-18 12:52 | P.PNNP_ITS ---
Progress Note: A&P Assessment and Plan (1) Hypernatremia: Code(s): E87.0 - Hyperosmolality and hypernatremia Status: Acute Assessment and Plan: * acute - normal sodium in September 2023 * felt to be secondary to significant dehydration/volume depletion and reduced oral po/fluid intake * slow improvement with interventions to date * goal of therapy is decrease in sodium level of around 10mmol/L per 24 hours...this appears to occurring * another short run of D5W IVFs today * getting free water flushes - titrate as needed * follow trend of repeat sodium levels (2) Acute kidney injury: Code(s): N17.9 - Acute kidney failure, unspecified Status: Acute Assessment and Plan: * slight improvement today * suspect multifactorial: * prerenal factors/volume depletion/dehydration * rhabdomyolysis * NSAIDs * LAW-I/BP medications use prior to admission * hemodynamic instability/hypotension * infection (UTI + bacteremia) * evaluation to date: * CT scan without obstruction * urine eosinophils negative * urine electrolytes non-prerenal (by FeNA and FeUrea) * CPK elevated initially - now down trending * moderate proteinuria * renal ultrasound normal * follow repeat labs and UOP (3) Shock: Code(s): R57.9 - Shock, unspecified Status: Acute Assessment and Plan: * resolved * suspect a combination of sepsis and volume depletion/hypovolemia * s/p IVF resuscitation * follow culture data - bacteremia and UTI noted * on antibiotics * weaned off vasopressor support * follow trend of hemodynamics (4) Urinary tract infection: Code(s): N39.0 - Urinary tract infection, site not specified Status: Acute Assessment and Plan: * suspected based on admission UA * urine cultures with E.coli * on antibiotics (5) Encephalopathy: Code(s): G93.40 - Encephalopathy, unspecified Status: Acute Assessment and Plan: * complicated by known baseline dementia * admission head CT negative * suspect worse due hypernatremia + infection/sepsis * follow mentation * possible brain MRI if no improvement (6) Rhabdomyolysis: Code(s): M62.82 - Rhabdomyolysis Status: Acute Assessment and Plan: * CK level elevated on admission * follow trend (7) Type 2 diabetes mellitus: Code(s): E11.9 - Type 2 diabetes mellitus without complications Status: Chronic Assessment and Plan: * follow accu-cheks * glycemic control per hospitalists/reflesher Will continue to follow. Subjective Date/time seen: 12/18/23 12:52 Interval history: Follow-up for acute kidney injury/acute renal failure and hypernatremia. Sodium level continues to slowly improve with current therapy/intervention; getting another run of D5W IVFs this morning; mentation seems better in general but still remains quite confused; no apparent distress noted; no issues/events overnight or earlier this morning; making reasonably urine output and creatinine slightly better today. Exam Narrative: General: ill appearing male in NAD Heart: normal S1 and S2; no rub Lungs: clear to auscultation Abdomen: soft, nontender, nondistended, positive bowel sounds Extremities: no cyanosis or clubbing; no edema Skin: no nodules Objective Data Vital Signs Vital Signs: V
--- NOTE | 2023-12-18 15:46 | PM.IMPN ---
Progress Note: A&P Assessment and Plan (1) Hypernatremia: Code(s): E87.0 - Hyperosmolality and hypernatremia Status: Acute Assessment and Plan: Patient presented with altered mental status and found to have severe hypernatremia likely secondary to dehydration and decreased p.o. intake Sodium 174. Started on IV fluids with sodium improving Free water flushes 250 mL every 4 hours through the tube and is getting D5W IV Nephrology is managing sodium and IV fluids/free water flushes Na 156 now Follow (2) Sepsis: Code(s): A41.9 - Sepsis, unspecified organism Status: Acute Assessment and Plan: Shock secondary to sepsis and significant dehydration. Sepsis secondary to UTI. BCx growing E coli that is mostly mota-sensitive UCx growing EColi that is mostly mota-sensitive Meropenem changed to Rocephin Levophed weaned off and Albumin stopped; remains on Midodrine Holding home BP medications Follow (3) Shock: Code(s): R57.9 - Shock, unspecified Status: Acute Assessment and Plan: As above. Off Levophed / Albumin stopped. BP stable. Continue midodrine. (4) Urinary tract infection: Code(s): N39.0 - Urinary tract infection, site not specified Status: Acute Assessment and Plan: As above Continue IV abx (5) Acute kidney injury: Code(s): N17.9 - Acute kidney failure, unspecified Status: Acute Assessment and Plan: Last year, patient with Cr 1.2-1.4 range. Cr 4.9 on admission. RENATE likely secondary to dehydration, ATN, rhabdomyolysis, meds (ibuprofen, ACEI) CT abdomen pelvis was negative for any stone or obstruction. Ultrasound was unremarkable Holding ibuprofen and lisinopril Creatine kinase trending down. Nephrology following Cr better today. Monitor urine output, electrolytes and creatinine He remains at risk of requiring SYSTEM SUPPORT ADMINISTRATOR. Spoke with dtr and discussed the possibility of HD. (6) Fecal impaction: Code(s): K56.41 - Fecal impaction Status: Acute Assessment and Plan: CT scan showing likely fecal impaction. Patient is now having bowel movements after initiation of laxatives through NG tube and suppository Follow (7) Encephalopathy: Code(s): G93.40 - Encephalopathy, unspecified Status: Acute Assessment and Plan: Patient brought to ED due to altered mental status. He does have baseline dementia but worse Head CT was negative. Changes due to toxic metabolic encephalopathy from sepsis, septic chock and electrolyte disturbance His mental status is overall improved. Contineu to monitor (8) Type 2 diabetes mellitus: Code(s): E11.9 - Type 2 diabetes mellitus without complications Status: Chronic Assessment and Plan: Patient was hypoglycemic and blood sugars have improved since initiation of dextrose He is on tube feeds now The patient's blood glucose was reviewed on Glucose remains elevated Continue AccuCheks covering with sliding scale. Hypoglycemia protocol available as needed. Add low dose lanus (9) Rhabdomyolysis: Code(s): M62.82 - Rhabdomyolysis Status: Acute Assessment and Plan: CK level elevated to 5300. He was on IV fluids. Levels trending down. He was on Crestor but holding for now (10) Thrombocytopenia: Code(s): D69.6 - Thrombocytopenia, unspecified Status: Acute Assessment and Plan: Likely multifactorial related to sepsis No evidence of bleeding. Follow (11) Anemia: Code(s): D64.9 - Anemia, unspecified Status: Acute Assessment and Plan: Hgh 12.1 on admisison and dropped to 8 ranged. No signs of bleeding. Related to IV fluids and that he was hemo-concentrated from dehydration Normal folic acid andB12; Iron studies suggest anemia of chronic disease Fecal occult blood is negative Hemoglobin low but stable Monitor. Continue Protonix (12) Dementia: C
[2023-12-18 18:14] LABS: Glucose Point of Care 164 mg/dl (65-105)
[2023-12-18] MEDS: INSULIN GLARGINE (*BKC) 100 UNITS/ML 8 UNITS SUB-Q (20:18)
[2023-12-18 23:29] LABS: Glucose Point of Care 165 mg/dl (65-105)
[2023-12-19] VITALS (13 sets, daily range): BP systolic 126–154; BP diastolic 64–80; PULSE 53–79; RESP 16–24; TEMP 36.8–37.1; O2SAT 96–99
[2023-12-19] MEDS: CENTRAL LINE FLUSH 10 ML IV PUSH ×3 (05:45→22:24)
[2023-12-19 05:48] LABS: Glucose Point of Care 194 mg/dl (65-105)
[2023-12-19 05:49] LABS: Hematocrit 26.8 % (42.0-52.0); Hemoglobin 8.3 g/dL (14.0-18.0); Immature Platelet Fraction Pct 14.5 % (0.9-11.2); Mean Corpuscular Volume 87.3 fl (80-100); Mean Platelet Volume 13.9 fl (7.4-10.4); Platelet Count Result 68 k/mm3 (150-375); Red Blood Count 3.07 M/mm3 (4.6-6.20); Red Cell Distribution Width 15.7 % (11.5-14.5); White Blood Count 6.9 K/mm3 (4.5-10.0)
[2023-12-19 05:59] LABS: Alanine Aminotransferase 25 U/L (6-50); Albumin Level 3.1 g/dL (3.5-5.1); Alkaline Phosphatase 68 U/L (38-126); Anion Gap 8 mmol/L (8-16); Aspartate Amino Transferase 55 U/L (17-59); Bilirubin,Total 0.4 mg/dL (0.2-1.3); Blood Urea Nitrogen 52 mg/dL (9-20); Calcium 8.3 mg/dL (8.4-10.2); Carbon Dioxide 22 mmol/L (22-30); Chloride 123 mmol/L (98-107); Creatine Kinase 362 U/L (55-170); Estimated CRCL calculation 13 ml/min; Estimated Glomerular Filt Rate 18; Glucose 181 mg/dL (65-110); Magnesium 2.3 mg/dL (1.6-2.3); Phosphorus 2.7 mg/dL (2.5-4.5); Potassium 3.7 mmol/L (3.4-5.0); Sodium 153 mmol/L (137-145)
[2023-12-19] MEDS: PANTOPRAZOLE SODIUM IV 40 MG VIAL IV PUSH ×2 (08:46→22:03)
[2023-12-19] MEDS: cefTRIAXone 2 GM/NS 100 ML 2 GM/100 ML BAG IVPB (08:46)
[2023-12-19] MEDS: ASPIRIN 81 MG CHEWABLE TABLET FEED TUBE (08:47)
[2023-12-19] MEDS: MIDODRINE HCL 10 MG TABLET FEED TUBE ×3 (08:47→17:43)
--- NOTE | 2023-12-19 09:50 | PM.PNNEP ---
Progress Note: A&P Assessment and Plan (1) Hypernatremia: Code(s): E87.0 - Hyperosmolality and hypernatremia Status: Acute Assessment and Plan: acute - normal sodium in September 2023 felt to be secondary to significant dehydration/volume depletion and reduced oral po/fluid intake slow improvement with interventions to date getting free water flushes via NGT - titrate as needed if unable to swallow or mentation fails to improve, may need to consider G-tube placement follow trend of repeat sodium levels (2) Acute kidney injury: Code(s): N17.9 - Acute kidney failure, unspecified Status: Acute Assessment and Plan: minimal improvement in the last 24 hours suspect multifactorial: prerenal factors/volume depletion/dehydration rhabdomyolysis NSAIDs LAW-I/BP medications use prior to admission hemodynamic instability/hypotension infection (UTI + bacteremia) evaluation to date: CT scan without obstruction urine eosinophils negative urine electrolytes non-prerenal (by FeNA and FeUrea) CPK elevated initially - now down trending moderate proteinuria renal ultrasound normal follow repeat labs and UOP (3) Shock: Code(s): R57.9 - Shock, unspecified Status: Acute Assessment and Plan: resolved suspect a combination of sepsis and volume depletion/hypovolemia s/p IVF resuscitation follow culture data - bacteremia and UTI noted on antibiotics weaned off vasopressor support follow trend of hemodynamics (4) Urinary tract infection: Code(s): N39.0 - Urinary tract infection, site not specified Status: Acute Assessment and Plan: suspected based on admission UA urine cultures with E.coli on antibiotics (5) Encephalopathy: Code(s): G93.40 - Encephalopathy, unspecified Status: Acute Assessment and Plan: complicated by known baseline dementia admission head CT negative suspect worse due hypernatremia + infection/sepsis follow mentation possible brain MRI if no improvement (6) Rhabdomyolysis: Code(s): M62.82 - Rhabdomyolysis Status: Acute Assessment and Plan: CK level elevated on admission follow trend (7) Type 2 diabetes mellitus: Code(s): E11.9 - Type 2 diabetes mellitus without complications Status: Chronic Assessment and Plan: follow accu-cheks glycemic control per hospitalists/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 Subjective Date/time seen: 12/19/23 09:50 Interval history: Follow-up for acute kidney injury/acute renal failure and hypernatremia. Sodium level continues to improve with runs of D5W IVFs along with free water flushes; mentation continues to fluctuate as well; no significant change in renal function in the last 24 hours but continues to make good urine output; stable hemodynamics noted at this time as well. Exam Narrative: General: ill appearing male in NAD Heart: normal S1 and S2; no rub Lungs: clear to auscultation Abdomen: soft, nontender, nondistended, positive bowel sounds Extremities: no cyanosis or clubbing; no edema Skin: warm and dry Objective Data Vital Signs Vital Signs: Vital Signs Temp Pulse Resp BP Pulse Ox O2 Del Method FiO2 12/19/23 08:00 98.7 F 62 16 144/75 H 99 12/19/23 08:00 96 Room Air 12/19/23 08:00 57 L 12/19/23 06:00 57 L 12/18/23 21:35 98 Room Air 12/19/23 04:00 79 12/19/23 04:00 98.6 F 59 L 18 126/73 97 12/19/23 04:00 67 18 98 Room Air 28 12/19/23 02:00 67 12/19/23 00:00 65 12/19/23 00:00 53 L 18 98 Room Air 28 12/19/23 00:00 98.7 F 53 L 18 138/78 98 12/18/23 22:00 93 12/18/23 20:00 60 12/18/23 20:00 98.8 F 74 15 142/77 H 100 12/18/23 20:00 59 L 15 100 Room Air 12/18/23 18:00 61 Intake/Output Intake/Output:
--- NOTE | 2023-12-19 09:50 | P.PNNP_ITS ---
Progress Note: A&P Assessment and Plan (1) Hypernatremia: Code(s): E87.0 - Hyperosmolality and hypernatremia Status: Acute Assessment and Plan: * acute - normal sodium in September 2023 * felt to be secondary to significant dehydration/volume depletion and reduced oral po/fluid intake * slow improvement with interventions to date * getting free water flushes via NGT - titrate as needed * if unable to swallow or mentation fails to improve, may need to consider G- tube placement * follow trend of repeat sodium levels (2) Acute kidney injury: Code(s): N17.9 - Acute kidney failure, unspecified Status: Acute Assessment and Plan: * minimal improvement in the last 24 hours * suspect multifactorial: * prerenal factors/volume depletion/dehydration * rhabdomyolysis * NSAIDs * LAW-I/BP medications use prior to admission * hemodynamic instability/hypotension * infection (UTI + bacteremia) * evaluation to date: * CT scan without obstruction * urine eosinophils negative * urine electrolytes non-prerenal (by FeNA and FeUrea) * CPK elevated initially - now down trending * moderate proteinuria * renal ultrasound normal * follow repeat labs and UOP (3) Shock: Code(s): R57.9 - Shock, unspecified Status: Acute Assessment and Plan: * resolved * suspect a combination of sepsis and volume depletion/hypovolemia * s/p IVF resuscitation * follow culture data - bacteremia and UTI noted * on antibiotics * weaned off vasopressor support * follow trend of hemodynamics (4) Urinary tract infection: Code(s): N39.0 - Urinary tract infection, site not specified Status: Acute Assessment and Plan: * suspected based on admission UA * urine cultures with E.coli * on antibiotics (5) Encephalopathy: Code(s): G93.40 - Encephalopathy, unspecified Status: Acute Assessment and Plan: * complicated by known baseline dementia * admission head CT negative * suspect worse due hypernatremia + infection/sepsis * follow mentation * possible brain MRI if no improvement (6) Rhabdomyolysis: Code(s): M62.82 - Rhabdomyolysis Status: Acute Assessment and Plan: * CK level elevated on admission * follow trend (7) Type 2 diabetes mellitus: Code(s): E11.9 - Type 2 diabetes mellitus without complications Status: Chronic Assessment and Plan: * follow accu-cheks * glycemic control per hospitalists/phone counselor Will continue to follow. Subjective Date/time seen: 12/19/23 09:50 Interval history: Follow-up for acute kidney injury/acute renal failure and hypernatremia. Sodium level continues to improve with runs of D5W IVFs along with free water flushes; mentation continues to fluctuate as well; no significant change in renal function in the last 24 hours but continues to make good urine output; stable hemodynamics noted at this time as well. Exam Narrative: General: ill appearing male in NAD Heart: normal S1 and S2; no rub Lungs: clear to auscultation Abdomen: soft, nontender, nondistended, positive bowel sounds Extremities: no cyanosis or clubbing; no edema Skin: warm and dry Objective Data Vital Signs Vital Signs: Vital Signs Temp Pulse Resp BP Pulse Ox O2 Del Method FiO2 12/19/23 08:00 98.7 F 62 16 144/75
--- NOTE | 2023-12-19 12:23 | PCSTNOTE ---
Please refer to the Bedside Swallow Evaluation in the EMR. Please note, silent aspiration cannot be ruled out at bedside.
--- NOTE | 2023-12-19 12:23 | PCSTNOTE ---
Please refer to the Modified Barium Swallow Evaluation in the EMR. A previous Bedside Swallow Eval note for 12/18 was entered in error.
--- NOTE | 2023-12-19 12:26 | PCNFU ---
Nutrition Follow-Up Complete: Inadequate energy intake related to acute illness, labs as evidenced by need for full tube feeding Goal: Meet estimated protein energy needs Labs trending toward normal patient is progressing towards goal. We will continue current goal. Pt current nutrition is Pureed, Level 4 with Moderately Thick liquids, Level 3. Last recorded weight is 64.4 kg, up from 63 kg on admit Bowel Motility: +BM reported Labs Reviewed: Glu 181, Cr 4.0, BUN 52, Alb 3.1, Na 153 Meds Noted:Protonix, Lovenox, Crestor Skin: WNL Additional Notes: Patient pulled NGT. MBS performed today, recommending Pureed, Level 4 with Moderately Thick liquids, Level 3. Recommend adding Diet supplements TID for additional 220 kcals and 10 gms protein. Agree with diet orders. Monitoring labs, tube feeding tolerance, weights, intake/output, diet advancement, plan of care every 3 days.
--- NOTE | 2023-12-19 12:51 | PC.NURSE ---
Pt was found with NG tube removed by himself. Pt is disoriented to place and time. Pt had barium swallow done. Notified Dr. Bah pt has pulled out NG tube and passed swallow exam with recommendations of puree food and moderately thickened liquids. MD says ok to keep out NG and order pt diet.
[2023-12-19 12:53] LABS: Glucose Point of Care 172 mg/dl (65-105)
--- NOTE | 2023-12-19 14:57 | PM.IMPN ---
Progress Note: A&P Assessment and Plan (1) Hypernatremia: Code(s): E87.0 - Hyperosmolality and hypernatremia Status: Acute Assessment and Plan: Patient presented with altered mental status and found to have severe hypernatremia likely secondary to dehydration and decreased p.o. intake Sodium 174. Started on IV fluids with sodium improving Free water flushes 250 mL every 4 hours through the tube and was getting D5W Nephrology is managing sodium and IV fluids/free water flushes Na 153 now. May need IV fluids since NGT out and patient may not be able to keep up with free water needs Follow (2) Sepsis: Code(s): A41.9 - Sepsis, unspecified organism Status: Acute Assessment and Plan: Shock secondary to sepsis and significant dehydration. Sepsis secondary to UTI. BCx growing E coli that is mostly mota-sensitive UCx growing EColi that is mostly mota-sensitive Meropenem changed to Rocephin Levophed weaned off and Albumin stopped; remains on Midodrine Holding home BP medications Continue Rocephin Follow (3) Shock: Code(s): R57.9 - Shock, unspecified Status: Acute Assessment and Plan: As above. Off Levophed 2/25 Albumin stopped. BP stable. Continue midodrine. (4) Urinary tract infection: Code(s): N39.0 - Urinary tract infection, site not specified Status: Acute Assessment and Plan: As above Continue IV abx (5) Acute kidney injury: Code(s): N17.9 - Acute kidney failure, unspecified Status: Acute Assessment and Plan: Last year, patient with Cr 1.2-1.4 range. Cr 4.9 on admission. RENATE likely secondary to dehydration, ATN, rhabdomyolysis, meds (ibuprofen, ACEI) CT abdomen pelvis was negative for any stone or obstruction. Ultrasound was unremarkable Holding ibuprofen and lisinopril Creatine kinase trending down. 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 Spoke with dtr and discussed the possibility of HD. (6) Fecal impaction: Code(s): K56.41 - Fecal impaction Status: Acute Assessment and Plan: CT scan showing likely fecal impaction. Patient is now having bowel movements after initiation of laxatives through NG tube and suppository Has lower abd pain. Liquid stool leaking around impaction? Check KUB Follow (7) Encephalopathy: Code(s): G93.40 - Encephalopathy, unspecified Status: Acute Assessment and Plan: Patient brought to ED due to altered mental status. He does have baseline dementia but worse Head CT was negative. Changes due to toxic metabolic encephalopathy from sepsis, septic chock and electrolyte disturbance His mental status is overall improved. Continue to monitor (8) Type 2 diabetes mellitus: Code(s): E11.9 - Type 2 diabetes mellitus without complications Status: Chronic Assessment and Plan: Patient was hypoglycemic and blood sugars have improved since initiation of dextrose He is on tube feeds now The patient's blood glucose was reviewed on 12/18 Glucose better controlled Continue AccuCheks covering with sliding scale. Hypoglycemia protocol available as needed. Continue lanus. Watch for lows being off dextrose and TF. (9) Rhabdomyolysis: Code(s): M62.82 - Rhabdomyolysis Status: Acute Assessment and Plan: CK level elevated to 5300. He was on IV fluids. Levels trending down. He was on Crestor but holding for now (10) Thrombocytopenia: Code(s): D69.6 - Thrombocytopenia, unspecified Status: Acute Assessment and Plan: Likely multifactorial related to sepsis No evidence of bleeding. Plt count better. Follow (11) Anemia: Code(s): D64.9 - Anemia, unspecified Status: Acute Assessment and Plan: Hgh 12.1 on admisison and dropped to 8 ranged. No signs of bleeding. Related to IV
--- NOTE | 2023-12-19 15:20 | PCDIET ---
Calorie Count initiated, nursing is aware. Diet order: Pureed, Level 4 with Moderately thick liquids, Level 3.Glucerna shakes TID providing an additional 220 kcals and 10 gms protein. Will continue to monitor.
[2023-12-19] MEDS: METOCLOPRAMIDE HCL INJ 10 MG/2 ML VIAL 5 MG IV PUSH (17:43)
[2023-12-19 18:17] LABS: Glucose Point of Care 157 mg/dl (65-105)
[2023-12-19 21:03] LABS: Glucose Point of Care 197 mg/dl (65-105)
[2023-12-19] MEDS: INSULIN GLARGINE (*BKC) 100 UNITS/ML 8 UNITS SUB-Q (22:03)
[2023-12-19 22:30] LABS: Sodium 152 mmol/L (137-145)
[2023-12-20] VITALS (17 sets, daily range): BP systolic 110–129; BP diastolic 64–92; PULSE 48–74; RESP 12–35; TEMP 36.9–37.4; O2SAT 96–100
[2023-12-20] MEDS: METOCLOPRAMIDE HCL INJ 10 MG/2 ML VIAL 5 MG IV PUSH ×4 (00:25→17:43)
[2023-12-20 05:04] LABS: Basophils Percent Auto 0.3 % (0.2-1.2); Eosinophils Absolute Auto 0.1 K/mm3 (0-0.3); Eosinophils Percent Auto 1.2 % (0-4.4); Hematocrit 25.1 % (42.0-52.0); Hemoglobin 7.5 g/dL (14.0-18.0); Immature Granulocyte Absolute 0.02 K/mm3 (0.00-0.031); Immature Granulocyte Percent A 0.3 % (0-0.5); Immature Platelet Fraction Pct 12.5 % (0.9-11.2); Lymphocytes Absolute Auto 2.43 K/mm3 (0.9-3.2); Lymphocytes Percent Auto 33.5 % (18.3-44.2); Mean Corpuscular HGB Conc 29.9 g/dl (32-36); Mean Corpuscular Hemoglobin 26.3 pg (26-34); Mean Corpuscular Volume 88.1 fl (80-100); Mean Platelet Volume 13.1 fl (7.4-10.4); Monocytes Absolute Auto 0.6 K/mm3 (0.1-0.6); Monocytes Percent Auto 8.1 % (2.6-8.5); Neutrophils Absolute Auto 4.1 K/mm3 (1.3-6.7); Neutrophils Percent Auto 56.6 % (45.5-73.1); Platelet Count Result 83 k/mm3 (150-375); Red Blood Count 2.85 M/mm3 (4.6-6.20); Red Cell Distribution Width 15.6 % (11.5-14.5); White Blood Count 7.3 K/mm3 (4.5-10.0)
[2023-12-20 05:14] LABS: Alanine Aminotransferase 25 U/L (6-50); Albumin Level 3.2 g/dL (3.5-5.1); Alkaline Phosphatase 60 U/L (38-126); Anion Gap 8 mmol/L (8-16); Aspartate Amino Transferase 39 U/L (17-59); Bilirubin,Total 0.4 mg/dL (0.2-1.3); Blood Urea Nitrogen 44 mg/dL (9-20); Calcium 8.3 mg/dL (8.4-10.2); Carbon Dioxide 22 mmol/L (22-30); Chloride 126 mmol/L (98-107); Estimated CRCL calculation 14 ml/min; Estimated Glomerular Filt Rate 19; Glucose 132 mg/dL (65-110); Magnesium 2.3 mg/dL (1.6-2.3); Potassium 3.5 mmol/L (3.4-5.0); Sodium 156 mmol/L (137-145)
[2023-12-20] MEDS: CENTRAL LINE FLUSH 10 ML IV PUSH (05:43)
[2023-12-20 07:36] LABS: Glucose Point of Care 117 mg/dl (65-105)
[2023-12-20] MEDS: DEXTROSE 5% 1,000 ML 1,000 ML 60 ML IV CONT ×2 (08:03→20:53)
[2023-12-20] MEDS: cefTRIAXone 2 GM/NS 100 ML 2 GM/100 ML BAG IVPB (08:03)
[2023-12-20] MEDS: ASPIRIN 81 MG CHEWABLE TABLET FEED TUBE (08:04)
[2023-12-20] MEDS: MIDODRINE HCL 10 MG TABLET FEED TUBE (08:04)
[2023-12-20] MEDS: PANTOPRAZOLE SODIUM IV 40 MG VIAL IV PUSH ×2 (08:15→20:48)
--- NOTE | 2023-12-20 09:37 | P.PNNP_ITS ---
Progress Note: A&P Assessment and Plan (1) Hypernatremia: Code(s): E87.0 - Hyperosmolality and hypernatremia Status: Acute Assessment and Plan: * doing better * acute - normal sodium in September 2023 * felt to be secondary to significant dehydration/volume depletion and reduced oral po/fluid intake * slow improvement with interventions to date * was getting free water flushes via NGT - unable to be done since NGT is out * resumed on low dose D5W IVFs to compensate * efforts being made to see if patient will eat/drink on his own (diet adjusted, reglan ordered, bowel regimen...etc) * if unable to take oral intake reliably, may need to consider G-tube placement * follow trend of repeat sodium levels (2) Acute kidney injury: Code(s): N17.9 - Acute kidney failure, unspecified Status: Acute Assessment and Plan: * improvement noted in the last 24 - 48 hours * suspect multifactorial: * prerenal factors/volume depletion/dehydration * rhabdomyolysis * NSAID use * LAW-I/BP medications use prior to admission * hemodynamic instability/hypotension * infection (UTI + bacteremia) * evaluation to date: * CT scan without obstruction * urine eosinophils negative * urine electrolytes non-prerenal (by FeNA and FeUrea) * CPK elevated initially - now down trending * moderate proteinuria * renal ultrasound normal * follow repeat labs and UOP (3) Shock: Code(s): R57.9 - Shock, unspecified Status: Acute Assessment and Plan: * resolved * suspect a combination of sepsis and volume depletion/hypovolemia * s/p IVF resuscitation * follow culture data - bacteremia and UTI noted * on antibiotics * weaned off vasopressor support * follow trend of hemodynamics (4) Urinary tract infection: Code(s): N39.0 - Urinary tract infection, site not specified Status: Acute Assessment and Plan: * suspected based on admission UA * urine cultures with E.coli * on antibiotics (5) Encephalopathy: Code(s): G93.40 - Encephalopathy, unspecified Status: Acute Assessment and Plan: * complicated by known baseline dementia * admission head CT negative * suspect worse due hypernatremia + infection/sepsis * follow mentation * possible brain MRI if no improvement (6) Rhabdomyolysis: Code(s): M62.82 - Rhabdomyolysis Status: Acute Assessment and Plan: * CK level elevated on admission * slow improvement noted * follow trend (7) Type 2 diabetes mellitus: Code(s): E11.9 - Type 2 diabetes mellitus without complications Status: Chronic Assessment and Plan: * follow accu-cheks * glycemic control per hospitalists/direct marketing manager Discussed case with Dr. Bah. Will continue to follow. Subjective Date/time seen: 12/20/23 09:37 Interval history: Follow-up for acute kidney injury/acute renal failure and hypernatremia. Early yesterday afternoon, patient pulled out his NG tube (although prior to this, he was having high tube feed residuals associated with vomiting); has since been started on D5W IVFs since sodium remains elevated; diet has been adjusted along with initiation of reglan in the hopes the he will eat/drink better; no apparent distress noted; continues to make reasonable urine output and creatinine is improving albeit very slowly. Exam Narrative: General: ill appearing male in NAD Heart: crow
--- NOTE | 2023-12-20 09:37 | PM.PNNEP ---
Progress Note: A&P Assessment and Plan (1) Hypernatremia: Code(s): E87.0 - Hyperosmolality and hypernatremia Status: Acute Assessment and Plan: doing better acute - normal sodium in September 2023 felt to be secondary to significant dehydration/volume depletion and reduced oral po/fluid intake slow improvement with interventions to date was getting free water flushes via NGT - unable to be done since NGT is out resumed on low dose D5W IVFs to compensate efforts being made to see if patient will eat/drink on his own (diet adjusted, reglan ordered, bowel regimen...etc) if unable to take oral intake reliably, may need to consider G-tube placement follow trend of repeat sodium levels (2) Acute kidney injury: Code(s): N17.9 - Acute kidney failure, unspecified Status: Acute Assessment and Plan: improvement noted in the last 24 - 48 hours suspect multifactorial: prerenal factors/volume depletion/dehydration rhabdomyolysis NSAID use LAW-I/BP medications use prior to admission hemodynamic instability/hypotension infection (UTI + bacteremia) evaluation to date: CT scan without obstruction urine eosinophils negative urine electrolytes non-prerenal (by FeNA and FeUrea) CPK elevated initially - now down trending moderate proteinuria renal ultrasound normal follow repeat labs and UOP (3) Shock: Code(s): R57.9 - Shock, unspecified Status: Acute Assessment and Plan: resolved suspect a combination of sepsis and volume depletion/hypovolemia s/p IVF resuscitation follow culture data - bacteremia and UTI noted on antibiotics weaned off vasopressor support follow trend of hemodynamics (4) Urinary tract infection: Code(s): N39.0 - Urinary tract infection, site not specified Status: Acute Assessment and Plan: suspected based on admission UA urine cultures with E.coli on antibiotics (5) Encephalopathy: Code(s): G93.40 - Encephalopathy, unspecified Status: Acute Assessment and Plan: complicated by known baseline dementia admission head CT negative suspect worse due hypernatremia + infection/sepsis follow mentation possible brain MRI if no improvement (6) Rhabdomyolysis: Code(s): M62.82 - Rhabdomyolysis Status: Acute Assessment and Plan: CK level elevated on admission slow improvement noted follow trend (7) Type 2 diabetes mellitus: Code(s): E11.9 - Type 2 diabetes mellitus without complications Status: Chronic Assessment and Plan: follow accu-cheks glycemic control per hospitalists/editor greeting card Discussed case with Dr. Bah. Will continue to follow. Subjective Date/time seen: 12/20/23 09:37 Interval history: Follow-up for acute kidney injury/acute renal failure and hypernatremia. Early yesterday afternoon, patient pulled out his NG tube (although prior to this, he was having high tube feed residuals associated with vomiting); has since been started on D5W IVFs since sodium remains elevated; diet has been adjusted along with initiation of reglan in the hopes the he will eat/drink better; no apparent distress noted; continues to make reasonable urine output and creatinine is improving albeit very slowly. Exam Narrative: General: ill appearing male in NAD Heart: normal S1 and S2; no rub Lungs: clear to auscultation Abdomen: soft, nontender, nondistended, positive bowel sounds Extremities: no cyanosis or clubbing; no edema Skin: warm and intact Objective Data Vital Signs Vital Signs: Vital Signs Temp Pulse Resp BP Pulse Ox O2 Del Method FiO2 12/20/23 08:00 70 12 96 Room Air 28 12/20/23 08:00 66 12/20/23 07:44 98.4 F 51 L 12 129/73 97 12/20/23 06:00 52 L 12/20/23 04:45 Room Air 12/20/23 04:00 99.1 F 48 L 14 129/73 99 12/20/23 04:00 48 L
--- NOTE | 2023-12-20 11:20 | PM.IMPN ---
Progress Note: A&P Assessment and Plan (1) Hypernatremia: Code(s): E87.0 - Hyperosmolality and hypernatremia Status: Acute Assessment and Plan: Patient presented with altered mental status and found to have severe hypernatremia likely secondary to dehydration and decreased p.o. intake Sodium 174. Started on IV fluids and free water flushes through NGT Nephrology is managing sodium and fluid resuscitation NGT pulled out. Diet started Na 153 but now up to 156. Concern that he will not be able to keep up with free water intake orally. IV fluids re-started Follow (2) Sepsis: Code(s): A41.9 - Sepsis, unspecified organism Status: Acute Assessment and Plan: Shock secondary to sepsis and significant dehydration. Sepsis secondary to UTI and bacteremia. BCx growing E coli that is mostly mota-sensitive UCx growing EColi that is mostly mota-sensitive Meropenem changed to Rocephin Levophed weaned off and Albumin stopped; remains on Midodrine Holding home BP medications Continue Rocephin (Day 7 of abx) Follow (3) Shock: Code(s): R57.9 - Shock, unspecified Status: Acute Assessment and Plan: As above. Off Levophed 2/25 Albumin stopped. BP stable. Continue midodrine but decrease dose. (4) Urinary tract infection: Code(s): N39.0 - Urinary tract infection, site not specified Status: Acute Assessment and Plan: As above Continue IV abx (5) Acute kidney injury: Code(s): N17.9 - Acute kidney failure, unspecified Status: Acute Assessment and Plan: Last year, patient with Cr 1.2-1.4 range. Cr 4.9 on admission. RENATE likely secondary to dehydration, ATN, rhabdomyolysis, meds (ibuprofen, ACEI) CT abdomen pelvis was negative for any stone or obstruction. Ultrasound was unremarkable Holding ibuprofen and lisinopril Creatine kinase trending down. Nephrology following Cr better today at 3.7 Monitor urine output, electrolytes and creatinine (6) Fecal impaction: Code(s): K56.41 - Fecal impaction Status: Acute Assessment and Plan: CT scan showing likely fecal impaction. Patient is now having bowel movements after initiation of laxatives through NG tube and suppository Had lower abd pain but having liquid stool and KUB showing no fecal impaction. Abd pain better. Fecal impaction resolved. Follow (7) Encephalopathy: Code(s): G93.40 - Encephalopathy, unspecified Status: Acute Assessment and Plan: Patient brought to ED due to altered mental status. He does have baseline dementia but worse Head CT was negative. Changes due to toxic metabolic encephalopathy from sepsis, septic shock and electrolyte disturbance His mental status is overall improved. Continue to monitor (8) Type 2 diabetes mellitus: Code(s): E11.9 - Type 2 diabetes mellitus without complications Status: Chronic Assessment and Plan: Patient was hypoglycemic and blood sugars have improved since initiation of dextrose He is on tube feeds now The patient's blood glucose was reviewed on / Glucose better controlled Continue AccuCheks covering with sliding scale. Hypoglycemia protocol available as needed. Continue lanus. Watch since resuming low dose D5W (9) Rhabdomyolysis: Code(s): M62.82 - Rhabdomyolysis Status: Acute Assessment and Plan: CK level elevated to 5300. He was on IV fluids. Levels trending down. He was on Crestor but holding for now (10) Thrombocytopenia: Code(s): D69.6 - Thrombocytopenia, unspecified Status: Acute Assessment and Plan: Likely multifactorial related to sepsis No evidence of bleeding. Plt count better. Follow (11) Anemia: Code(s): D64.9 - Anemia, unspecified Status: Acute Assessment and Plan: Hgh 12.1 on admisison and dropped to 7.5 ranged. No signs of bleeding. Related to IV fluids and that he w
[2023-12-20 11:32] LABS: Glucose Point of Care 184 mg/dl (65-105)
[2023-12-20 12:17] LABS: Myoglobin, Urine 4120 mcg/L (<28)
[2023-12-20 13:17] LABS: Sodium 154 mmol/L (137-145)
[2023-12-20 16:07] LABS: Glucose Point of Care 205 mg/dl (65-105)
[2023-12-20] MEDS: INSULIN ASPART (*BKC) 100 UNITS/ML SUB-Q (17:16)
--- NOTE | 2023-12-20 18:38 | PC.NURSE ---
This patient, Carroll Roy, was transferred to room 205 on 12/20/23 at 1740. Personal belongings sent with patient. Report given to Janelle. Appropriate documentation sent with patient. Daughter Juancarlos notified
--- NOTE | 2023-12-20 19:32 | PC.NURSE ---
This patient, Carroll Roy, was received from ICU 2 on 12/20/23 at 1736. Patient/family oriented to unit policies and routines.
[2023-12-20 20:28] LABS: Glucose Point of Care 179 mg/dl (65-105)
[2023-12-20] MEDS: INSULIN GLARGINE (*BKC) 100 UNITS/ML 8 UNITS SUB-Q (22:17)
[2023-12-21] VITALS (14 sets, daily range): BP systolic 114–139; BP diastolic 64–111; PULSE 50–89; RESP 15–20; TEMP 36.1–36.9; O2SAT 96–100
[2023-12-21] MEDS: METOCLOPRAMIDE HCL INJ 10 MG/2 ML VIAL 5 MG IV PUSH ×2 (00:34→06:29)
[2023-12-21 04:31] LABS: Basophils Percent Auto 0.3 % (0.2-1.2); Eosinophils Absolute Auto 0.1 K/mm3 (0-0.3); Eosinophils Percent Auto 1.6 % (0-4.4); Hematocrit 25.7 % (42.0-52.0); Hemoglobin 7.6 g/dL (14.0-18.0); Immature Granulocyte Absolute 0.02 K/mm3 (0.00-0.031); Immature Granulocyte Percent A 0.3 % (0-0.5); Immature Platelet Fraction Pct 10.6 % (0.9-11.2); Lymphocytes Absolute Auto 3.35 K/mm3 (0.9-3.2); Lymphocytes Percent Auto 44.1 % (18.3-44.2); Mean Corpuscular HGB Conc 29.6 g/dl (32-36); Mean Corpuscular Hemoglobin 26.2 pg (26-34); Mean Corpuscular Volume 88.6 fl (80-100); Mean Platelet Volume 13.4 fl (7.4-10.4); Monocytes Absolute Auto 0.6 K/mm3 (0.1-0.6); Monocytes Percent Auto 7.5 % (2.6-8.5); Neutrophils Absolute Auto 3.5 K/mm3 (1.3-6.7); Neutrophils Percent Auto 46.2 % (45.5-73.1); Platelet Count Result 106 k/mm3 (150-375); Red Cell Distribution Width 15.9 % (11.5-14.5); White Blood Count 7.6 K/mm3 (4.5-10.0)
[2023-12-21 04:46] LABS: Albumin Level 3.3 g/dL (3.5-5.1); Anion Gap 10 mmol/L (8-16); Blood Urea Nitrogen 42 mg/dL (9-20); Calcium 8.2 mg/dL (8.4-10.2); Carbon Dioxide 22 mmol/L (22-30); Chloride 122 mmol/L (98-107); Estimated CRCL calculation 12 ml/min; Estimated Glomerular Filt Rate 22; Glucose 126 mg/dL (65-110); Magnesium 2.2 mg/dL (1.6-2.3); Phosphorus 3.3 mg/dL (2.5-4.5); Potassium 3.9 mmol/L (3.4-5.0); Sodium 154 mmol/L (137-145)
[2023-12-21 08:12] LABS: Glucose Point of Care 103 mg/dl (65-105)
[2023-12-21] MEDS: MIDODRINE HCL 2.5 MG TABLET 5 MG BY MOUTH ×3 (09:26→16:17)
[2023-12-21] MEDS: cefTRIAXone 2 GM/NS 100 ML 2 GM/100 ML BAG IVPB (09:26)
[2023-12-21] MEDS: PANTOPRAZOLE SODIUM IV 40 MG VIAL IV PUSH ×2 (09:26→22:00)
[2023-12-21] MEDS: ASPIRIN 81 MG CHEWABLE TABLET BY MOUTH (09:26)
--- NOTE | 2023-12-21 10:01 | PM.PNNEP ---
Progress Note: A&P Assessment and Plan (1) Hypernatremia: Code(s): E87.0 - Hyperosmolality and hypernatremia Status: Acute Assessment and Plan: relatively stable acute - normal sodium in September 2023 felt to be secondary to significant dehydration/volume depletion and reduced oral po/fluid intake slow improvement with interventions to date was getting free water flushes via NGT - unable to be done since NGT is out resumed on low dose D5W IVFs to compensate efforts being made optimize patient's oral intake (diet adjusted, reglan ordered, bowel regimen...etc) if unable to take oral intake reliably, may need to consider G-tube placement follow trend of repeat sodium levels (2) Acute kidney injury: Code(s): N17.9 - Acute kidney failure, unspecified Status: Acute Assessment and Plan: improvement noted in the last 24 - 48 hours suspect multifactorial: prerenal factors/volume depletion/dehydration rhabdomyolysis NSAID use LAW-I/BP medications use prior to admission hemodynamic instability/hypotension infection (UTI + bacteremia) evaluation to date: CT scan without obstruction urine eosinophils negative urine electrolytes non-prerenal (by FeNA and FeUrea) CPK elevated initially - now down trending moderate proteinuria renal ultrasound normal follow repeat labs and UOP (3) Shock: Code(s): R57.9 - Shock, unspecified Status: Acute Assessment and Plan: resolved suspect a combination of sepsis and volume depletion/hypovolemia s/p IVF resuscitation follow culture data - bacteremia and UTI noted on antibiotics weaned off vasopressor support follow trend of hemodynamics (4) Urinary tract infection: Code(s): N39.0 - Urinary tract infection, site not specified Status: Acute Assessment and Plan: suspected based on admission UA urine cultures with E.coli on antibiotics (5) Encephalopathy: Code(s): G93.40 - Encephalopathy, unspecified Status: Acute Assessment and Plan: complicated by known baseline dementia admission head CT negative suspect worse due hypernatremia + infection/sepsis follow mentation possible brain MRI if no improvement (6) Rhabdomyolysis: Code(s): M62.82 - Rhabdomyolysis Status: Acute Assessment and Plan: CK level elevated on admission slow improvement noted follow trend (7) Type 2 diabetes mellitus: Code(s): E11.9 - Type 2 diabetes mellitus without complications Status: Chronic Assessment and Plan: follow accu-cheks glycemic control per hospitalists/online advertising director Will continue to follow. Subjective Date/time seen: 12/21/23 10:01 Interval history: Follow-up for acute kidney injury/acute renal failure and hypernatremia. Mentation seems about the same - alert but confused; cleared for oral diet by speech therapy; unfortunately, sodium remains elevated so D5W IVF rate increased in an effort to compensate for inability to drink enough free water; renal function slightly better by AM labs; no apparent distress noted; no issues/events overnight or earlier this morning. Exam Narrative: General: ill appearing male in NAD Heart: normal S1 and S2; no rub Lungs: clear to auscultation Abdomen: soft, nontender, nondistended, positive bowel sounds Extremities: no cyanosis or clubbing; no edema Skin: no rash Objective Data Vital Signs Vital Signs: Vital Signs Temp Pulse Resp BP Pulse Ox O2 Del Method 12/21/23 10:00 98.4 F 79 15 137/81 98 12/21/23 07:21 98.5 F 66 18 133/75 100 12/21/23 04:00 97.0 F L 50 L 16 118/64 98 12/21/23 06:00 69 12/20/23 21:48 98 Room Air 12/21/23 04:00 Room Air 12/21/23 04:00 69 12/21/23 02:00 50 L 12/21/23 00:46 97 F L 53 L 16 114/68 98 12/20/23 22:00 67 12/21/23 00:00 51 L
--- NOTE | 2023-12-21 10:01 | P.PNNP_ITS ---
Progress Note: A&P Assessment and Plan (1) Hypernatremia: Code(s): E87.0 - Hyperosmolality and hypernatremia Status: Acute Assessment and Plan: * relatively stable * acute - normal sodium in September 2023 * felt to be secondary to significant dehydration/volume depletion and reduced oral po/fluid intake * slow improvement with interventions to date * was getting free water flushes via NGT - unable to be done since NGT is out * resumed on low dose D5W IVFs to compensate * efforts being made optimize patient's oral intake (diet adjusted, reglan ordered, bowel regimen...etc) * if unable to take oral intake reliably, may need to consider G-tube placement * follow trend of repeat sodium levels (2) Acute kidney injury: Code(s): N17.9 - Acute kidney failure, unspecified Status: Acute Assessment and Plan: * improvement noted in the last 24 - 48 hours * suspect multifactorial: * prerenal factors/volume depletion/dehydration * rhabdomyolysis * NSAID use * LAW-I/BP medications use prior to admission * hemodynamic instability/hypotension * infection (UTI + bacteremia) * evaluation to date: * CT scan without obstruction * urine eosinophils negative * urine electrolytes non-prerenal (by FeNA and FeUrea) * CPK elevated initially - now down trending * moderate proteinuria * renal ultrasound normal * follow repeat labs and UOP (3) Shock: Code(s): R57.9 - Shock, unspecified Status: Acute Assessment and Plan: * resolved * suspect a combination of sepsis and volume depletion/hypovolemia * s/p IVF resuscitation * follow culture data - bacteremia and UTI noted * on antibiotics * weaned off vasopressor support * follow trend of hemodynamics (4) Urinary tract infection: Code(s): N39.0 - Urinary tract infection, site not specified Status: Acute Assessment and Plan: * suspected based on admission UA * urine cultures with E.coli * on antibiotics (5) Encephalopathy: Code(s): G93.40 - Encephalopathy, unspecified Status: Acute Assessment and Plan: * complicated by known baseline dementia * admission head CT negative * suspect worse due hypernatremia + infection/sepsis * follow mentation * possible brain MRI if no improvement (6) Rhabdomyolysis: Code(s): M62.82 - Rhabdomyolysis Status: Acute Assessment and Plan: * CK level elevated on admission * slow improvement noted * follow trend (7) Type 2 diabetes mellitus: Code(s): E11.9 - Type 2 diabetes mellitus without complications Status: Chronic Assessment and Plan: * follow accu-cheks * glycemic control per hospitalists/wet inspector optical glass Will continue to follow. Subjective Date/time seen: 12/21/23 10:01 Interval history: Follow-up for acute kidney injury/acute renal failure and hypernatremia. Mentation seems about the same - alert but confused; cleared for oral diet by speech therapy; unfortunately, sodium remains elevated so D5W IVF rate increased in an effort to compensate for inability to drink enough free water; renal function slightly better by AM labs; no apparent distress noted; no issues/events overnight or earlier this morning. Exam Narrative: General: ill appearing male in NAD Heart: normal S1 and S2; no rub Lungs: clear to auscultation Abdomen: soft, nontender, nondistended, positive bowel sounds Extremiti
[2023-12-21] MEDS: DEXTROSE 5% 1,000 ML 1,000 ML 100 ML IV CONT ×2 (11:47→22:05)
[2023-12-21] MEDS: METOCLOPRAMIDE HCL 5 MG TABLET PO ×2 (11:47→16:17)
[2023-12-21 12:48] LABS: Glucose Point of Care 126 mg/dl (65-105)
--- NOTE | 2023-12-21 14:11 | PM.IMPN ---
Progress Note: A&P Assessment and Plan (1) Hypernatremia: Code(s): E87.0 - Hyperosmolality and hypernatremia Status: Acute Assessment and Plan: Patient presented with altered mental status and found to have severe hypernatremia likely secondary to dehydration and decreased p.o. intake Sodium 174. Started on IV fluids and free water flushes through NGT Nephrology was managing sodium and fluid resuscitation NGT pulled out. Speech evaluation showing he could safely eat so diet started. Na climbing so resumed on IV fluids Na 154. Concern that he will not be able to keep up with free water intake orally. Advance IV fluid rate Follow (2) Sepsis: Code(s): A41.9 - Sepsis, unspecified organism Status: Acute Assessment and Plan: Shock secondary to sepsis and significant dehydration. Sepsis secondary to UTI and bacteremia. BCx growing E coli that is mostly mota-sensitive UCx growing EColi that is mostly mota-sensitive Meropenem changed to Rocephin Levophed weaned off and Albumin stopped; remains on Midodrine Holding home BP medications Continue Rocephin (Day 8 of abx) Follow (3) Shock: Code(s): R57.9 - Shock, unspecified Status: Acute Assessment and Plan: As above. Off Levophed 2/25 Albumin stopped. BP stable. Continue midodrine; wean dose (4) Urinary tract infection: Code(s): N39.0 - Urinary tract infection, site not specified Status: Acute Assessment and Plan: As above Continue IV abx (5) Acute kidney injury: Code(s): N17.9 - Acute kidney failure, unspecified Status: Acute Assessment and Plan: Last year, patient with Cr 1.2-1.4 range. Cr 4.9 on admission. RENATE likely secondary to dehydration, ATN, rhabdomyolysis, meds (ibuprofen, ACEI) CT abdomen pelvis was negative for any stone or obstruction. Ultrasound was unremarkable Holding ibuprofen and lisinopril Creatine kinase trending down. Nephrology following Cr better today at 3.3 Monitor urine output, electrolytes and creatinine (6) Fecal impaction: Code(s): K56.41 - Fecal impaction Status: Acute Assessment and Plan: CT scan showing likely fecal impaction. Patient is now having bowel movements after initiation of laxatives through NG tube and suppository Had lower abd pain but having liquid stool and KUB showing no fecal impaction. Abd pain better. Fecal impaction resolved. Follow (7) Encephalopathy: Code(s): G93.40 - Encephalopathy, unspecified Status: Acute Assessment and Plan: Patient brought to ED due to altered mental status. He does have baseline dementia but worse Head CT was negative. Altered mental changes due to toxic metabolic encephalopathy from sepsis, septic shock and electrolyte disturbance His mental status is overall improved. Continue to monitor (8) Type 2 diabetes mellitus: Code(s): E11.9 - Type 2 diabetes mellitus without complications Status: Chronic Assessment and Plan: Patient was hypoglycemic at one point requiring treatment. The patient's blood glucose was reviewed on 12/20 Glucose better controlled Continue AccuCheks covering with sliding scale. Hypoglycemia protocol available as needed. Continue Lantus. (9) Rhabdomyolysis: Code(s): M62.82 - Rhabdomyolysis Status: Acute Assessment and Plan: CK level elevated to 5300. He was on IV fluids. Levels trended down. Crestor was held but now will resume (10) Thrombocytopenia: Code(s): D69.6 - Thrombocytopenia, unspecified Status: Acute Assessment and Plan: Likely multifactorial related to sepsis No evidence of bleeding. Plt count better. Follow (11) Anemia: Code(s): D64.9 - Anemia, unspecified Status: Acute Assessment and Plan: Hgh 12.1 on admisison and dropped to 7.5 ranged. No signs of bleeding. Related to IV fluids and that he was he
[2023-12-21 16:50] LABS: Glucose Point of Care 212 mg/dl (65-105)
[2023-12-21] MEDS: INSULIN ASPART (*BKC) 100 UNITS/ML SUB-Q (16:57)
--- NOTE | 2023-12-21 17:23 | PC.NURSE ---
This patient, Carroll Roy, was received from IMU on 12/21/23 at 1723. Patient oriented to unit policies and routines.
--- NOTE | 2023-12-21 18:11 | PC.NURSE ---
This patient, Carroll Roy, was transferred to [facility] on 12/21/23 at 1715. Personal belongings sent with patient. Report given to Valentine. Appropriate documentation sent with patient. Daughter/SIMÓN Bauer notified of room change.
[2023-12-21] MEDS: FUROSEMIDE INJ 40 MG/4 ML VIAL IV PUSH (18:23)
[2023-12-21 19:03] LABS: Sodium 149 mmol/L (137-145)
[2023-12-21 20:49] LABS: Glucose Point of Care 166 mg/dl (65-105)
[2023-12-21] MEDS: INSULIN GLARGINE (*BKC) 100 UNITS/ML 8 UNITS SUB-Q (22:00)
[2023-12-22 05:17] VITALS: BP 142/83; PULSE 87; RESP 20; TEMP 36.4; O2SAT 95
[2023-12-22 06:51] LABS: Basophils Percent Auto 0.3 % (0.2-1.2); Eosinophils Absolute Auto 0.1 K/mm3 (0-0.3); Eosinophils Percent Auto 1.5 % (0-4.4); Immature Granulocyte Absolute 0.02 K/mm3 (0.00-0.031); Immature Granulocyte Percent A 0.3 % (0-0.5); Lymphocytes Absolute Auto 3.36 K/mm3 (0.9-3.2); Lymphocytes Percent Auto 42.9 % (18.3-44.2); Mean Corpuscular HGB Conc 29.6 g/dl (32-36); Mean Corpuscular Hemoglobin 26.5 pg (26-34); Mean Corpuscular Volume 89.4 fl (80-100); Monocytes Absolute Auto 0.5 K/mm3 (0.1-0.6); Monocytes Percent Auto 6.9 % (2.6-8.5); Neutrophils Absolute Auto 3.8 K/mm3 (1.3-6.7); Neutrophils Percent Auto 48.1 % (45.5-73.1); Platelet Count Result 137 k/mm3 (150-375); Red Blood Count 3.02 M/mm3 (4.6-6.20); White Blood Count 7.8 K/mm3 (4.5-10.0)
[2023-12-22 07:00] LABS: Albumin Level 3.6 g/dL (3.5-5.1); Anion Gap 9 mmol/L (8-16); Blood Urea Nitrogen 35 mg/dL (9-20); Calcium 8.3 mg/dL (8.4-10.2); Carbon Dioxide 24 mmol/L (22-30); Chloride 113 mmol/L (98-107); Estimated CRCL calculation 16 ml/min; Estimated Glomerular Filt Rate 25; Glucose 140 mg/dL (65-110); Phosphorus 3.7 mg/dL (2.5-4.5); Potassium 3.6 mmol/L (3.4-5.0); Sodium 146 mmol/L (137-145)
[2023-12-22 07:37] LABS: Platelet Estimate Adequate (Adequate)
[2023-12-22 07:38] LABS: Anisocytosis 1+ (NORMAL); Schistocytes None Seen (NORMAL); Target Cells 1+ (NORMAL)
[2023-12-22 08:05] LABS: Glucose Point of Care 132 mg/dl (65-105)
[2023-12-22] MEDS: cefTRIAXone 2 GM/NS 100 ML 2 GM/100 ML BAG IVPB (08:12)
[2023-12-22] MEDS: ROSUVASTATIN 10 MG TABLET PO (08:13)
[2023-12-22] MEDS: MIDODRINE HCL 2.5 MG TABLET 5 MG BY MOUTH (08:13)
[2023-12-22] MEDS: ASPIRIN 81 MG CHEWABLE TABLET BY MOUTH (08:13)
[2023-12-22] MEDS: PANTOPRAZOLE SODIUM IV 40 MG VIAL IV PUSH ×2 (08:19→21:41)
[2023-12-22] MEDS: DEXTROSE 5% 1,000 ML 1,000 ML 100 ML IV CONT (08:19)
[2023-12-22 10:56] LABS: INR 1.1; Prothrombin Time 15.2 Seconds (11.1-14.7)
[2023-12-22 10:57] LABS: Partial Thromboplastin Time 32.4 SECONDS (22.3-36.8)
[2023-12-22 11:35] LABS: Glucose Point of Care 138 mg/dl (65-105)
--- NOTE | 2023-12-22 11:45 | PCNFU ---
Nutrition Follow-Up Complete: Inadequate energy intake related to acute illness, labs as evidenced by need for full tube feeding Goal: Meet estimated protein energy needs - Progressing PO Labs trending toward normal - Progressing. Sodium down to 146 today from 153 12/19/23 Pt current nutrition is Heart healthy, Puree level 4, moderately thick liquids. Glucerna TID for additional 220 kcal and 10 g protein each Nutrition recommendation: No new recommendations. Continue with current nutrition care plan and supplements. Agree with orders Last recorded weight is 59.4 kg. Bowel Motility: +1 BM 12/21/23 Labs Reviewed: Hgb 8.0, Hct 27, Na 146, GFR 25, BUN 35, Cre 3.0, Glu 132 Meds Noted: Protonix, Lovenox Skin: No pressure injuries Additional Notes: Calorie count was ordered but no calorie count was found after discussion with RN. Calorie count was discussed by RDN with different RN on Friday to be performed over the weekend. Pt did not eat breakfast this morning (according to patient and RN) but 50% intakes were charted. 100% charted for dinner last night. No intakes charted for Glucerna. Monitoring labs, supplement tolerance, weights, intake/output, diet advancement, plan of care Follow up every 3 days
--- NOTE | 2023-12-22 11:47 | P.PNNP_ITS ---
Progress Note: A&P Assessment and Plan (1) Hypernatremia: Code(s): E87.0 - Hyperosmolality and hypernatremia Status: Acute Assessment and Plan: * slow improvement noted * acute -- normal sodium in September 2023 * felt to be secondary to significant dehydration/volume depletion and reduced oral po/fluid intake * slow improvement with interventions to date * was getting free water flushes via NGT - unable to be done since NGT is out * was on D5W IVFs to compensate * efforts being made optimize patient's oral intake (diet adjusted, reglan ordered, bowel regimen...etc) * if unable to take oral intake reliably, may need to consider G-tube placement * follow trend of repeat sodium levels (2) Acute kidney injury: Code(s): N17.9 - Acute kidney failure, unspecified Status: Acute Assessment and Plan: * improvement noted in the last 24 - 48 hours * suspect multifactorial: * prerenal factors/volume depletion/dehydration * rhabdomyolysis * NSAID use * LAW-I/BP medications use prior to admission * hemodynamic instability/hypotension * infection (UTI + bacteremia) * evaluation to date: * CT scan without obstruction * urine eosinophils negative * urine electrolytes non-prerenal (by FeNA and FeUrea) * CPK elevated initially - now down trending * moderate proteinuria * renal ultrasound normal * follow repeat labs and UOP (3) Shock: Code(s): R57.9 - Shock, unspecified Status: Acute Assessment and Plan: * resolved * suspect a combination of sepsis and volume depletion/hypovolemia * s/p IVF resuscitation * follow culture data - bacteremia and UTI noted * on antibiotics * weaned off vasopressor support * follow trend of hemodynamics (4) Urinary tract infection: Code(s): N39.0 - Urinary tract infection, site not specified Status: Acute Assessment and Plan: * suspected based on admission UA * urine cultures with E.coli * on antibiotics (5) Encephalopathy: Code(s): G93.40 - Encephalopathy, unspecified Status: Acute Assessment and Plan: * complicated by known baseline dementia * admission head CT negative * suspect worse due hypernatremia + infection/sepsis * follow mentation (6) Rhabdomyolysis: Code(s): M62.82 - Rhabdomyolysis Status: Acute Assessment and Plan: * CK level elevated on admission * slow improvement noted * follow trend (7) Type 2 diabetes mellitus: Code(s): E11.9 - Type 2 diabetes mellitus without complications Status: Chronic Assessment and Plan: * follow accu-cheks * glycemic control per hospitalists/upper extremity surgeon Will continue to follow. Subjective Date/time seen: 12/22/23 11:47 Interval history: Follow-up for acute kidney injury/acute renal failure and hypernatremia. Given IV diuretics yesterday due to increased left upper extremity edema with associated serous blisters; in spite of IV diuretic use, renal function continues to improve as does his sodium level; doppler of LUE positive for DVT so heparin gtt has been ordered; no real significant change in mentation (remains non-verbal and non-communicative). Exam Narrative: General: ill appearing male in NAD Heart: normal S1 and S2; no rub Lungs: clear to auscultation Abdomen: soft, nontender, nondistended, positive bowel sounds Extremities: no cyanosis or clubbing; 1+ edema in LUE Ski
--- NOTE | 2023-12-22 11:47 | PM.PNNEP ---
Progress Note: A&P Assessment and Plan (1) Hypernatremia: Code(s): E87.0 - Hyperosmolality and hypernatremia Status: Acute Assessment and Plan: slow improvement noted acute -- normal sodium in September 2023 felt to be secondary to significant dehydration/volume depletion and reduced oral po/fluid intake slow improvement with interventions to date was getting free water flushes via NGT - unable to be done since NGT is out was on D5W IVFs to compensate efforts being made optimize patient's oral intake (diet adjusted, reglan ordered, bowel regimen...etc) if unable to take oral intake reliably, may need to consider G-tube placement follow trend of repeat sodium levels (2) Acute kidney injury: Code(s): N17.9 - Acute kidney failure, unspecified Status: Acute Assessment and Plan: improvement noted in the last 24 - 48 hours suspect multifactorial: prerenal factors/volume depletion/dehydration rhabdomyolysis NSAID use LAW-I/BP medications use prior to admission hemodynamic instability/hypotension infection (UTI + bacteremia) evaluation to date: CT scan without obstruction urine eosinophils negative urine electrolytes non-prerenal (by FeNA and FeUrea) CPK elevated initially - now down trending moderate proteinuria renal ultrasound normal follow repeat labs and UOP (3) Shock: Code(s): R57.9 - Shock, unspecified Status: Acute Assessment and Plan: resolved suspect a combination of sepsis and volume depletion/hypovolemia s/p IVF resuscitation follow culture data - bacteremia and UTI noted on antibiotics weaned off vasopressor support follow trend of hemodynamics (4) Urinary tract infection: Code(s): N39.0 - Urinary tract infection, site not specified Status: Acute Assessment and Plan: suspected based on admission UA urine cultures with E.coli on antibiotics (5) Encephalopathy: Code(s): G93.40 - Encephalopathy, unspecified Status: Acute Assessment and Plan: complicated by known baseline dementia admission head CT negative suspect worse due hypernatremia + infection/sepsis follow mentation (6) Rhabdomyolysis: Code(s): M62.82 - Rhabdomyolysis Status: Acute Assessment and Plan: CK level elevated on admission slow improvement noted follow trend (7) Type 2 diabetes mellitus: Code(s): E11.9 - Type 2 diabetes mellitus without complications Status: Chronic Assessment and Plan: follow accu-cheks 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 Subjective Date/time seen: 12/22/23 11:47 Interval history: Follow-up for acute kidney injury/acute renal failure and hypernatremia. Given IV diuretics yesterday due to increased left upper extremity edema with associated serous blisters; in spite of IV diuretic use, renal function continues to improve as does his sodium level; doppler of LUE positive for DVT so heparin gtt has been ordered; no real significant change in mentation (remains non-verbal and non-communicative). Exam Narrative: General: ill appearing male in NAD Heart: normal S1 and S2; no rub Lungs: clear to auscultation Abdomen: soft, nontender, nondistended, positive bowel sounds Extremities: no cyanosis or clubbing; 1+ edema in LUE Skin: no nodules Objective Data Vital Signs Vital Signs: Vital Signs Temp Pulse Resp BP Pulse Ox O2 Del Method 12/22/23 08:15 Room Air 12/22/23 05:17 97.5 F L 87 20 142/83 H 95 12/21/23 20:31 97 F L 70 16 134/111 H 99 12/21/23 19:54 Room Air 12/21/23 18:55 97.8 F 82 20 139/70 97 12/21/23 15:44 98.5 F 77 19 125/77 96 12/21/23 14:00 89 Intake/Output Intake/Output: Intake & Output 12/19/23 12/20/23 12/21/23 12/22/23 23:59 23:59 23:59 23:59 Intake Total 8745 1370 2320 1
[2023-12-22 13:37] VITALS: BP 130/63; PULSE 64; RESP 16; TEMP 36.8; O2SAT 98
--- NOTE | 2023-12-22 14:48 | PM.IMPN ---
Progress Note: A&P Assessment and Plan (1) Deep venous thrombosis: Code(s): I82.409 - Acute embolism and thrombosis of unspecified deep veins of unspecified lower extremity Status: Acute Assessment and Plan: Called to the room 3/3. Patient with increasing edema to the LUE with blistering He is fluid positive. Lasix once given. Edema better. Doppler to the left UE showing DVT left radial vein and superficial thrombosis left cephalic vein. Heparin gtt ordered but unable to give due to loss of IV access. Add Lovenox q24hr (2) Hypernatremia: Code(s): E87.0 - Hyperosmolality and hypernatremia Status: Acute Assessment and Plan: Patient presented with altered mental status and found to have severe hypernatremia likely secondary to dehydration and decreased p.o. intake Sodium 174. Started on IV fluids and free water flushes through NGT Nephrology was managing sodium and fluid resuscitation NGT pulled out. Speech evaluation showing he could safely eat so diet started. Na was climbing so resumed on IV fluids Na 146. Concern that he will not be able to keep up with free water intake orally. Stop fluids and monitor. Follow (3) Sepsis: Code(s): A41.9 - Sepsis, unspecified organism Status: Acute Assessment and Plan: Shock secondary to sepsis and significant dehydration. Sepsis secondary to UTI and bacteremia. BCx growing E coli that is mostly mota-sensitive UCx growing EColi that is mostly mota-sensitive Meropenem changed to Rocephin Levophed weaned off and Albumin stopped; remains on Midodrine Holding home BP medications Continue Rocephin (Day 9 of abx) Stop midodrine Follow (4) Shock: Code(s): R57.9 - Shock, unspecified Status: Acute Assessment and Plan: As above. Off Levophed 2/ Albumin stopped. BP stable. Stop midodrine (5) Acute kidney injury: Code(s): N17.9 - Acute kidney failure, unspecified Status: Acute Assessment and Plan: Last year, patient with Cr 1.2-1.4 range. Cr 4.9 on admission. RENATE likely secondary to dehydration, ATN, rhabdomyolysis, meds (ibuprofen, ACEI) CT abdomen pelvis was negative for any stone or obstruction. Ultrasound was unremarkable Holding ibuprofen and lisinopril Creatine kinase trending down. Nephrology following Cr better today at 3 Tolerated the Lasix yesterday with excellent UOP. Monitor urine output, electrolytes and creatinine (6) Urinary tract infection: Code(s): N39.0 - Urinary tract infection, site not specified Status: Acute Assessment and Plan: As above Continue IV abx (7) Fecal impaction: Code(s): K56.41 - Fecal impaction Status: Acute Assessment and Plan: CT scan showing likely fecal impaction. Patient is now having bowel movements after initiation of laxatives through NG tube and suppository Had lower abd pain but having liquid stool and KUB showing no fecal impaction. Fecal impaction resolved. Follow (8) Encephalopathy: Code(s): G93.40 - Encephalopathy, unspecified Status: Acute Assessment and Plan: Patient brought to ED due to altered mental status. He does have baseline dementia but worse Head CT was negative. Altered mental changes due to toxic metabolic encephalopathy from sepsis, septic shock and electrolyte disturbance His mental status worsened yesterday felt related to ?dystonic reaction. Reglan stopped Continue to monitor (9) Type 2 diabetes mellitus: Code(s): E11.9 - Type 2 diabetes mellitus without complications Status: Chronic Assessment and Plan: Patient was hypoglycemic at one point requiring treatment. The patient's blood glucose was reviewed on / Glucose better controlled Continue AccuCheks covering with sliding scale. Hypoglycemia protocol available as needed. Continue Lantus. (10) Rhabdomyolysis: Code(s): M62.82 - Rhabdomyolysis
[2023-12-22] MEDS: ENOXAPARIN 60 MG/0.6 ML SYRINGE SUB-Q (16:30)
[2023-12-22 17:04] LABS: Glucose Point of Care 98 mg/dl (65-105)
[2023-12-22 20:43] LABS: Heparin Induced Platelet Antib Negative (Negative)
[2023-12-22 20:59] LABS: Glucose Point of Care 103 mg/dl (65-105)
[2023-12-22 21:10] VITALS: BP 117/95; PULSE 103; RESP 18; TEMP 36.9; O2SAT 90
[2023-12-22] MEDS: INSULIN GLARGINE (*BKC) 100 UNITS/ML 8 UNITS SUB-Q (21:33)
[2023-12-23 04:19] VITALS: BP 104/75; PULSE 104; RESP 16; TEMP 36.7; O2SAT 91
[2023-12-23 07:16] LABS: Basophils Percent Auto 0.3 % (0.2-1.2); Eosinophils Absolute Auto 0.1 K/mm3 (0-0.3); Eosinophils Percent Auto 1.3 % (0-4.4); Hematocrit 27.3 % (42.0-52.0); Immature Granulocyte Absolute 0.01 K/mm3 (0.00-0.031); Immature Granulocyte Percent A 0.1 % (0-0.5); Mean Corpuscular HGB Conc 29.3 g/dl (32-36); Mean Corpuscular Hemoglobin 26.8 pg (26-34); Mean Corpuscular Volume 91.6 fl (80-100); Mean Platelet Volume 12.5 fl (7.4-10.4); Monocytes Absolute Auto 0.6 K/mm3 (0.1-0.6); Monocytes Percent Auto 8.3 % (2.6-8.5); Neutrophils Absolute Auto 3.3 K/mm3 (1.3-6.7); Platelet Count Result 172 k/mm3 (150-375); Red Blood Count 2.98 M/mm3 (4.6-6.20); Red Cell Distribution Width 15.9 % (11.5-14.5)
[2023-12-23 07:32] LABS: Albumin Level 3.6 g/dL (3.5-5.1); Anion Gap 9 mmol/L (8-16); Blood Urea Nitrogen 31 mg/dL (9-20); Calcium 8.6 mg/dL (8.4-10.2); Carbon Dioxide 25 mmol/L (22-30); Chloride 114 mmol/L (98-107); Estimated CRCL calculation 17 ml/min; Estimated Glomerular Filt Rate 27; Glucose 68 mg/dL (65-110); Magnesium 1.9 mg/dL (1.6-2.3); Phosphorus 4.3 mg/dL (2.5-4.5); Potassium 3.9 mmol/L (3.4-5.0); Sodium 148 mmol/L (137-145)
[2023-12-23 07:50] LABS: Glucose Point of Care 59 mg/dl (65-105)
[2023-12-23 08:21] LABS: Glucose Point of Care 54 mg/dl (65-105)
[2023-12-23] MEDS: GLUCOSE ORAL GEL 15 GM OF GLUCSE IN 37.5 GM TUBE PO (08:39)
[2023-12-23] MEDS: HEPARIN SOD/D5W 100 UNITS/ML 25,000 UNITS/250 ML BAG 11 UNITS IV CONT (08:40)
[2023-12-23] MEDS: PANTOPRAZOLE SODIUM IV 40 MG VIAL IV PUSH ×2 (08:40→21:21)
[2023-12-23] MEDS: ASPIRIN 81 MG CHEWABLE TABLET BY MOUTH (08:40)
[2023-12-23] MEDS: levoFLOXacin 750 MG TABLET PO (08:40)
[2023-12-23] MEDS: ROSUVASTATIN 10 MG TABLET PO (08:40)
[2023-12-23 09:27] LABS: Glucose Point of Care 68 mg/dl (65-105)
--- NOTE | 2023-12-23 10:07 | PM.PNNEP ---
Progress Note: A&P Assessment and Plan (1) Hypernatremia: Code(s): E87.0 - Hyperosmolality and hypernatremia Status: Acute Assessment and Plan: continue to fluctuate acute -- normal sodium in September 2023 felt to be secondary to significant dehydration/volume depletion and reduced oral po/fluid intake slow improvement with interventions to date was getting free water flushes via NGT - unable to be done since NGT is out was on D5W IVFs to compensate efforts being made optimize patient's oral intake if unable to take oral intake reliably, may need to consider G-tube placement follow trend of repeat sodium levels (2) Acute kidney injury: Code(s): N17.9 - Acute kidney failure, unspecified Status: Acute Assessment and Plan: improvement noted albeit slowly suspect multifactorial: prerenal factors/volume depletion/dehydration rhabdomyolysis NSAID use LAW-I/BP medications use prior to admission hemodynamic instability/hypotension infection (UTI + bacteremia) evaluation to date: CT scan without obstruction urine eosinophils negative urine electrolytes non-prerenal (by FeNA and FeUrea) CPK elevated initially - now down trending moderate proteinuria renal ultrasound normal follow repeat labs and UOP (3) Shock: Code(s): R57.9 - Shock, unspecified Status: Acute Assessment and Plan: resolved suspect a combination of sepsis and volume depletion/hypovolemia s/p IVF resuscitation follow culture data - bacteremia and UTI noted on antibiotics weaned off vasopressor support follow trend of hemodynamics (4) Urinary tract infection: Code(s): N39.0 - Urinary tract infection, site not specified Status: Acute Assessment and Plan: suspected based on admission UA urine cultures with E.coli on antibiotics (5) Encephalopathy: Code(s): G93.40 - Encephalopathy, unspecified Status: Acute Assessment and Plan: complicated by known baseline dementia admission head CT negative suspect worse due hypernatremia + infection/sepsis follow mentation (6) Rhabdomyolysis: Code(s): M62.82 - Rhabdomyolysis Status: Acute Assessment and Plan: CK level elevated on admission slow improvement noted follow trend (7) Type 2 diabetes mellitus: Code(s): E11.9 - Type 2 diabetes mellitus without complications Status: Chronic Assessment and Plan: follow accu-cheks 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 Discussed case with Dr. Bah. Will continue to follow. Subjective Date/time seen: 12/23/23 10:07 Interval history: Follow-up for acute kidney injury/acute renal failure and hypernatremia. Swelling/edema in LUE seems to be doing better; no significant change in mentation despite all interventions to date -- remains nonverbal/non-communicative since admission began; sodium trending back up without IVF support (arguing he is not eating/drinking enough on his own); issues with hypoglycemia noted as well; slow improvement in renal function noted. Exam Narrative: General: ill appearing male in NAD Heart: normal S1 and S2; no rub Lungs: clear to auscultation Abdomen: soft, nontender, nondistended, positive bowel sounds Extremities: no cyanosis or clubbing; trace edema in LUE Skin: warm and dry Objective Data Vital Signs Vital Signs: Vital Signs Temp Pulse Resp BP Pulse Ox O2 Del Method 12/23/23 07:15 Room Air 12/23/23 04:19 98.1 F 104 H 16 104/75 91 12/22/23 21:10 98.5 F 103 H 18 117/95 H 90 12/22/23 13:37 98.3 F 64 16 130/63 98 Intake/Output Intake/Output: Intake & Output 12/20/23
--- NOTE | 2023-12-23 10:07 | P.PNNP_ITS ---
Progress Note: A&P Assessment and Plan (1) Hypernatremia: Code(s): E87.0 - Hyperosmolality and hypernatremia Status: Acute Assessment and Plan: * continue to fluctuate * acute -- normal sodium in September 2023 * felt to be secondary to significant dehydration/volume depletion and reduced oral po/fluid intake * slow improvement with interventions to date * was getting free water flushes via NGT - unable to be done since NGT is out * was on D5W IVFs to compensate * efforts being made optimize patient's oral intake * if unable to take oral intake reliably, may need to consider G-tube placement * follow trend of repeat sodium levels (2) Acute kidney injury: Code(s): N17.9 - Acute kidney failure, unspecified Status: Acute Assessment and Plan: * improvement noted albeit slowly * suspect multifactorial: * prerenal factors/volume depletion/dehydration * rhabdomyolysis * NSAID use * LAW-I/BP medications use prior to admission * hemodynamic instability/hypotension * infection (UTI + bacteremia) * evaluation to date: * CT scan without obstruction * urine eosinophils negative * urine electrolytes non-prerenal (by FeNA and FeUrea) * CPK elevated initially - now down trending * moderate proteinuria * renal ultrasound normal * follow repeat labs and UOP (3) Shock: Code(s): R57.9 - Shock, unspecified Status: Acute Assessment and Plan: * resolved * suspect a combination of sepsis and volume depletion/hypovolemia * s/p IVF resuscitation * follow culture data - bacteremia and UTI noted * on antibiotics * weaned off vasopressor support * follow trend of hemodynamics (4) Urinary tract infection: Code(s): N39.0 - Urinary tract infection, site not specified Status: Acute Assessment and Plan: * suspected based on admission UA * urine cultures with E.coli * on antibiotics (5) Encephalopathy: Code(s): G93.40 - Encephalopathy, unspecified Status: Acute Assessment and Plan: * complicated by known baseline dementia * admission head CT negative * suspect worse due hypernatremia + infection/sepsis * follow mentation (6) Rhabdomyolysis: Code(s): M62.82 - Rhabdomyolysis Status: Acute Assessment and Plan: * CK level elevated on admission * slow improvement noted * follow trend (7) Type 2 diabetes mellitus: Code(s): E11.9 - Type 2 diabetes mellitus without complications Status: Chronic Assessment and Plan: * follow accu-cheks * 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 Discussed case with Dr. Bah. Will continue to follow. Subjective Date/time seen: 12/23/23 10:07 Interval history: Follow-up for acute kidney injury/acute renal failure and hypernatremia. Swelling/edema in LUE seems to be doing better; no significant change in mentation despite all interventions to date -- remains nonverbal/non- communicative since admission began; sodium trending back up without IVF support (arguing he is not eating/drinking enough on his own); issues with hypoglycemia noted as well; slow improvement in renal function noted. Exam Narrative: General: ill appearing male in NAD Heart:
[2023-12-23 10:54] LABS: Glucose Point of Care 106 mg/dl (65-105)
[2023-12-23 11:25] LABS: Glucose Point of Care 102 mg/dl (65-105)
[2023-12-23] MEDS: DEXTROSE 5% 1,000 ML 1,000 ML 60 ML IV CONT (12:18)
--- NOTE | 2023-12-23 12:24 | PM.IMPN ---
Progress Note: A&P Assessment and Plan (1) Deep venous thrombosis: Code(s): I82.409 - Acute embolism and thrombosis of unspecified deep veins of unspecified lower extremity Status: Acute Assessment and Plan: Called to the room 12/20. Patient with increasing edema to the LUE with blistering He is fluid positive. Lasix once given. Edema better. Doppler to the left UE showing DVT left radial vein and superficial thrombosis left cephalic vein. Heparin gtt ordered but unable to give due to loss of IV access so lovenox given 12/22/23 Considering GTube now so will resume Heparin gtt since has IV access (2) Hypernatremia: Code(s): E87.0 - Hyperosmolality and hypernatremia Status: Acute Assessment and Plan: Patient presented with altered mental status and found to have severe hypernatremia likely secondary to dehydration and decreased p.o. intake Sodium 174. Started on IV fluids and free water flushes through NGT Nephrology was managing sodium and fluid resuscitation NGT pulled out. Speech evaluation showing he could safely eat so diet started. Na was climbing so resumed on IV fluids Na 146 and fluids stopped he is eating some but Na 148 now. Glucose dropped felt related to Lantus last night. Resume D5W. Monitor oral intake. Nephrology feels GTube is needed and agree. Discussed with POA who would like to have GTube placed. GI consult for GTube placement (3) Sepsis: Code(s): A41.9 - Sepsis, unspecified organism Status: Acute Assessment and Plan: Shock secondary to sepsis and significant dehydration. Sepsis secondary to UTI and bacteremia. BCx growing E coli that is mostly mota-sensitive UCx growing EColi that is mostly mota-sensitive Meropenem changed to Rocephin Levophed weaned off and Albumin stopped; remains on Midodrine Holding home BP medications. Midodrine stopped and BP remaining stable Treated with Rocephin and now changed to levaquin to complete a course Follow (4) Shock: Code(s): R57.9 - Shock, unspecified Status: Acute Assessment and Plan: As above. Off Levophed / Albumin stopped. Midodrine stopped 3/4 BP stable. Follow (5) Acute kidney injury: Code(s): N17.9 - Acute kidney failure, unspecified Status: Acute Assessment and Plan: Last year, patient with Cr 1.2-1.4 range. Cr 4.9 on admission. RENATE likely secondary to dehydration, ATN, rhabdomyolysis, meds (ibuprofen, ACEI) CT abdomen pelvis was negative for any stone or obstruction. Ultrasound was unremarkable Holding ibuprofen and lisinopril Creatine kinase trending down. Nephrology following Cr better today at 2.8 Monitor urine output, electrolytes and creatinine (6) Urinary tract infection: Code(s): N39.0 - Urinary tract infection, site not specified Status: Acute Assessment and Plan: As above Continue IV abx (7) Fecal impaction: Code(s): K56.41 - Fecal impaction Status: Acute Assessment and Plan: CT scan showing likely fecal impaction. Patient was having bowel movements after initiation of laxatives through NG tube and suppository Had lower abd pain but having liquid stool and KUB showing no fecal impaction. Fecal impaction resolved. Follow (8) Encephalopathy: Code(s): G93.40 - Encephalopathy, unspecified Status: Acute Assessment and Plan: Patient brought to ED due to altered mental status. He does have baseline dementia but appeared worse Head CT was negative. Altered mental changes due to toxic metabolic encephalopathy from sepsis, septic shock and electrolyte disturbance His mental status worsened 3/3 felt related to ?dystonic reaction. Reglan stopped Continue to monitor (9) Type 2 diabetes mellitus: Code(s): E11.9 - Type 2 diabetes mellitus without complications Status: Chronic Assessment and Plan: Patient was hypoglycemic at one point requiring treatme
--- NOTE | 2023-12-23 13:13 | PCDIET ---
CALORIE COUNT 12/19/23 - meal documented - 420KCALS TOTAL Dinner ~420 kcals consumed 12/20/23 - 3 meals documented - 1270 KCALS TOTAL - 50% OF TOTAL CALORIES CAME FROM GLUCERNA SHAKES TID Breakfast ~ 500 kcals Lunch ~ 320 kcals Dinner ~ 450 kcals 12/21/23 - meal documented - 310 KCALS TOTAL Dinner ~ 310 kcals 12/22/23 - meal documented - 0 KCALS TOTAL Lunch ~ 0 kcals Noted most of calories in each meal documented came from Glucerna shakes TID.
--- NOTE | 2023-12-23 13:37 | PCDIET ---
Calorie count 12/23/23 Breakfast ~ 220kcals Lunch ~ 270 kcals
[2023-12-23 14:00] VITALS: BP 187/94; PULSE 67; RESP 16; TEMP 36.3; O2SAT 99
[2023-12-23 14:36] LABS: Basophils Percent Auto 0.2 % (0.2-1.2); Eosinophils Absolute Auto 0.1 K/mm3 (0-0.3); Eosinophils Percent Auto 1.4 % (0-4.4); Hemoglobin 7.9 g/dL (14.0-18.0); Immature Granulocyte Absolute 0.02 K/mm3 (0.00-0.031); Immature Granulocyte Percent A 0.3 % (0-0.5); Lymphocytes Absolute Auto 2.79 K/mm3 (0.9-3.2); Lymphocytes Percent Auto 42.2 % (18.3-44.2); Mean Corpuscular HGB Conc 30.4 g/dl (32-36); Mean Corpuscular Hemoglobin 26.6 pg (26-34); Mean Corpuscular Volume 87.5 fl (80-100); Mean Platelet Volume 12.1 fl (7.4-10.4); Monocytes Absolute Auto 0.5 K/mm3 (0.1-0.6); Neutrophils Absolute Auto 3.2 K/mm3 (1.3-6.7); Neutrophils Percent Auto 48.9 % (45.5-73.1); Platelet Count Result 184 k/mm3 (150-375); Red Blood Count 2.97 M/mm3 (4.6-6.20); Red Cell Distribution Width 15.9 % (11.5-14.5); White Blood Count 6.6 K/mm3 (4.5-10.0)
[2023-12-23 14:45] LABS: INR 1.1; Prothrombin Time 14.7 Seconds (11.1-14.7)
[2023-12-23 16:30] LABS: Glucose Point of Care 122 mg/dl (65-105)
[2023-12-23] MEDS: HEPARIN SOD/D5W 100 UNITS/ML 25,000 UNITS/250 ML BAG 10 UNITS IV CONT (16:59)
--- NOTE | 2023-12-23 18:08 | PC.NURSE ---
The POA/daughter, Juancarlos Waldron, called and stated she does not want Carroll to receive a peg tube. She does not want anything done that will prolong the state he is in . Dr. Bah notified.
[2023-12-23 20:27] LABS: Glucose Point of Care 170 mg/dl (65-105)
--- NOTE | 2023-12-23 21:44 | PC.NURSE ---
02/22/24 0700 This RN has reviewed and agrees with all of student nurse Negron's assessments and notes.
[2023-12-23 22:00] VITALS: BP 151/90; PULSE 93; RESP 17; TEMP 36.9; O2SAT 96
[2023-12-23 23:15] LABS: Partial Thromboplastin Time 131.4 SECONDS (22.3-36.8)
[2023-12-24 06:25] LABS: Basophils Percent Auto 0.1 % (0.2-1.2); Eosinophils Absolute Auto 0.1 K/mm3 (0-0.3); Eosinophils Percent Auto 1.3 % (0-4.4); Hemoglobin 7.7 g/dL (14.0-18.0); Immature Granulocyte Absolute 0.03 K/mm3 (0.00-0.031); Immature Granulocyte Percent A 0.4 % (0-0.5); Lymphocytes Absolute Auto 2.62 K/mm3 (0.9-3.2); Lymphocytes Percent Auto 39.1 % (18.3-44.2); Mean Corpuscular HGB Conc 30.8 g/dl (32-36); Mean Corpuscular Hemoglobin 27.1 pg (26-34); Mean Platelet Volume 12.3 fl (7.4-10.4); Monocytes Absolute Auto 0.5 K/mm3 (0.1-0.6); Monocytes Percent Auto 8.1 % (2.6-8.5); Neutrophils Absolute Auto 3.4 K/mm3 (1.3-6.7); Platelet Count Result 190 k/mm3 (150-375); Red Blood Count 2.84 M/mm3 (4.6-6.20); Red Cell Distribution Width 15.8 % (11.5-14.5); White Blood Count 6.7 K/mm3 (4.5-10.0)
[2023-12-24 06:38] LABS: Partial Thromboplastin Time 146.7 SECONDS (22.3-36.8)
[2023-12-24 06:40] LABS: Albumin Level 3.5 g/dL (3.5-5.1); Anion Gap 8 mmol/L (8-16); Blood Urea Nitrogen 29 mg/dL (9-20); Calcium 8.7 mg/dL (8.4-10.2); Carbon Dioxide 26 mmol/L (22-30); Chloride 112 mmol/L (98-107); Creatine Kinase 89 U/L (55-170); Estimated CRCL calculation 17 ml/min; Estimated Glomerular Filt Rate 28; Glucose 141 mg/dL (65-110); Magnesium 1.9 mg/dL (1.6-2.3); Phosphorus 3.7 mg/dL (2.5-4.5); Potassium 3.9 mmol/L (3.4-5.0); Sodium 146 mmol/L (137-145)
--- NOTE | 2023-12-24 06:56 | PC.NURSE ---
Hep gtt held per protocol for 1 hour. start hold at 0655
[2023-12-24 07:28] LABS: Glucose Point of Care 121 mg/dl (65-105)
--- NOTE | 2023-12-24 08:04 | PC.NURSE ---
Guru RN on coil tester reported that her paused the heparin drip per protocol at 0655. At 0800 I restarted the heparin drip at the decreased rate of 7mL/hr.
[2023-12-24] MEDS: ROSUVASTATIN 10 MG TABLET PO (08:42)
[2023-12-24] MEDS: PANTOPRAZOLE SODIUM IV 40 MG VIAL IV PUSH ×2 (08:42→21:15)
[2023-12-24] MEDS: ASPIRIN 81 MG CHEWABLE TABLET BY MOUTH (08:42)
--- NOTE | 2023-12-24 09:55 | PCDIET ---
Nutrition note: Discussion with . Pt's POA decided against PEG tube, therefore calorie count is discontinued. Puree diet, moderately thick liquids, Glucerna TID ordered for additional 220 kcal and 10 g protein each. Sporadic intakes 5-100%. Continue to follow up with patient every 5 days.
[2023-12-24 11:20] LABS: Glucose Point of Care 107 mg/dl (65-105)
--- NOTE | 2023-12-24 12:19 | PM.IMPN ---
Progress Note: A&P Assessment and Plan (1) Deep venous thrombosis: Code(s): I82.409 - Acute embolism and thrombosis of unspecified deep veins of unspecified lower extremity Status: Acute Assessment and Plan: Transition from iv heparin to oral eliquis (2) Hypernatremia: Code(s): E87.0 - Hyperosmolality and hypernatremia Status: Acute Assessment and Plan: Patient presented with altered mental status and found to have severe hypernatremia likely secondary to dehydration and decreased p.o. intake Daughter refusing PEG tube Will be talking to hospice team soon Pt will benefit from hospice care and pleasure feeds due to decline and failure to thrive (3) Sepsis: Code(s): A41.9 - Sepsis, unspecified organism Status: Acute Assessment and Plan: Shock secondary to sepsis and significant dehydration. Sepsis secondary to UTI and bacteremia. Meropenem changed to Rocephin Treated with Rocephin and now changed to Levaquin to complete a course (4) Shock: Code(s): R57.9 - Shock, unspecified Status: Acute Assessment and Plan: BP stable on (5) Acute kidney injury: Code(s): N17.9 - Acute kidney failure, unspecified Status: Acute Assessment and Plan: Last year, patient with Cr 1.2-1.4 range. Cr 4.9 on admission. RENATE likely secondary to dehydration, ATN, rhabdomyolysis, meds (ibuprofen, ACEI) CT abdomen pelvis was negative for any stone or obstruction. Ultrasound was unremarkable Holding ibuprofen and lisinopril Nephrology following Cr better today at 2.7 Monitor urine output, electrolytes and creatinine (6) Urinary tract infection: Code(s): N39.0 - Urinary tract infection, site not specified Status: Acute Assessment and Plan: As above Continue IV abx (7) Fecal impaction: Code(s): K56.41 - Fecal impaction Status: Acute Assessment and Plan: CT scan showing likely fecal impaction. Patient was having bowel movements after initiation of laxatives through NG tube and suppository Had lower abd pain but having liquid stool and KUB showing no fecal impaction. Fecal impaction resolved. Follow (8) Encephalopathy: Code(s): G93.40 - Encephalopathy, unspecified Status: Acute Assessment and Plan: Patient brought to ED due to altered mental status. He does have baseline dementia but appeared worse Head CT was negative. Altered mental changes due to toxic metabolic encephalopathy from sepsis, septic shock and electrolyte disturbance His mental status worsened 3/3 felt related to ?dystonic reaction. Reglan stopped Continue to monitor (9) Type 2 diabetes mellitus: Code(s): E11.9 - Type 2 diabetes mellitus without complications Status: Chronic Assessment and Plan: Patient was hypoglycemic at one point requiring treatment. The patient's blood glucose was reviewed on 3/5 Glucose lower due to poor oral intake and off D5 Continue AccuCheks covering with sliding scale. Hypoglycemia protocol available as needed. Lantus stopped. Follow (10) Rhabdomyolysis: Code(s): M62.82 - Rhabdomyolysis Status: Acute Assessment and Plan: CK level elevated to 5300. He was on IV fluids. Levels trended down. Crestor was held but now resumed Repeat TCK since being back on Crestor (11) Thrombocytopenia: Code(s): D69.6 - Thrombocytopenia, unspecified Status: Acute Assessment and Plan: Likely multifactorial related to sepsis (12) Anemia: Code(s): D64.9 - Anemia, unspecified Status: Acute Assessment and Plan: Hgh 12.1 on admisison and dropped to 7-8 range No signs of bleeding. Related to IV fluids and that he was hemo-concentrated from dehydration Normal folic acid and B12; Iron studies suggest anemia of chronic disease (13) Dementia: Code(s): F03.90 - Unspecified dementia, un
[2023-12-24 12:27] LABS: Partial Thromboplastin Time 67.9 SECONDS (22.3-36.8)
--- NOTE | 2023-12-24 12:31 | P.PNNP_ITS ---
Progress Note: A&P Assessment and Plan (1) Hypernatremia: Code(s): E87.0 - Hyperosmolality and hypernatremia Status: Acute Assessment and Plan: * continues to fluctuate * acute -- normal sodium in September 2023 * felt to be secondary to significant dehydration/volume depletion and reduced oral po/fluid intake * slow improvement with interventions to date * was getting free water flushes via NGT - unable to be done since NGT is out * was on D5W IVFs to compensate * efforts being made optimize patient's oral intake * if unable to take oral intake reliably, may need to consider G-tube placement (but family has decided against this) * follow trend of repeat sodium levels (2) Acute kidney injury: Code(s): N17.9 - Acute kidney failure, unspecified Status: Acute Assessment and Plan: * improvement noted albeit slowly * suspect multifactorial: * prerenal factors/volume depletion/dehydration * rhabdomyolysis * NSAID use * LAW-I/BP medications use prior to admission * hemodynamic instability/hypotension * infection (UTI + bacteremia) * evaluation to date: * CT scan without obstruction * urine eosinophils negative * urine electrolytes non-prerenal (by FeNA and FeUrea) * CPK elevated initially - now down trending * moderate proteinuria * renal ultrasound normal * follow repeat labs and UOP (3) Shock: Code(s): R57.9 - Shock, unspecified Status: Acute Assessment and Plan: * resolved * suspect a combination of sepsis and volume depletion/hypovolemia * s/p IVF resuscitation * follow culture data - bacteremia and UTI noted * on antibiotics * weaned off vasopressor support * follow trend of hemodynamics (4) Urinary tract infection: Code(s): N39.0 - Urinary tract infection, site not specified Status: Acute Assessment and Plan: * suspected based on admission UA * urine cultures with E.coli * on antibiotics (5) Encephalopathy: Code(s): G93.40 - Encephalopathy, unspecified Status: Acute Assessment and Plan: * complicated by known baseline dementia * admission head CT negative * suspect worse due hypernatremia + infection/sepsis * follow mentation (6) Rhabdomyolysis: Code(s): M62.82 - Rhabdomyolysis Status: Acute Assessment and Plan: * CK level elevated on admission * slow improvement noted * follow trend (7) Type 2 diabetes mellitus: Code(s): E11.9 - Type 2 diabetes mellitus without complications Status: Chronic Assessment and Plan: * follow accu-cheks * glycemic control per hospitalists/folder hand As family appears to be moving toward comfort care/hospice; not much else to add -- will follow from a distance. Subjective Date/time seen: 12/24/23 12:31 Interval history: Follow-up for acute kidney injury/acute renal failure and hypernatremia. No real significant change noted; per my disussion with Dr. Bah yesterday afternoon, family was initially considering G-tube placement but then changed their minds and are now moving towards comfort/palliative care + hospice; no other issues/events noted at the time of my visit. Exam Narrative: General: ill appearing male in NAD Heart: normal S1 and S2; no rub Lungs: clear to auscultation Abdomen: soft, nontender, nondistended, positive bowel sounds Extremities: no cyanosis or clubbing; trace edema in LUE Skin: warm a
--- NOTE | 2023-12-24 12:31 | PM.PNNEP ---
Progress Note: A&P Assessment and Plan (1) Hypernatremia: Code(s): E87.0 - Hyperosmolality and hypernatremia Status: Acute Assessment and Plan: continues to fluctuate acute -- normal sodium in September 2023 felt to be secondary to significant dehydration/volume depletion and reduced oral po/fluid intake slow improvement with interventions to date was getting free water flushes via NGT - unable to be done since NGT is out was on D5W IVFs to compensate efforts being made optimize patient's oral intake if unable to take oral intake reliably, may need to consider G-tube placement (but family has decided against this) follow trend of repeat sodium levels (2) Acute kidney injury: Code(s): N17.9 - Acute kidney failure, unspecified Status: Acute Assessment and Plan: improvement noted albeit slowly suspect multifactorial: prerenal factors/volume depletion/dehydration rhabdomyolysis NSAID use LAW-I/BP medications use prior to admission hemodynamic instability/hypotension infection (UTI + bacteremia) evaluation to date: CT scan without obstruction urine eosinophils negative urine electrolytes non-prerenal (by FeNA and FeUrea) CPK elevated initially - now down trending moderate proteinuria renal ultrasound normal follow repeat labs and UOP (3) Shock: Code(s): R57.9 - Shock, unspecified Status: Acute Assessment and Plan: resolved suspect a combination of sepsis and volume depletion/hypovolemia s/p IVF resuscitation follow culture data - bacteremia and UTI noted on antibiotics weaned off vasopressor support follow trend of hemodynamics (4) Urinary tract infection: Code(s): N39.0 - Urinary tract infection, site not specified Status: Acute Assessment and Plan: suspected based on admission UA urine cultures with E.coli on antibiotics (5) Encephalopathy: Code(s): G93.40 - Encephalopathy, unspecified Status: Acute Assessment and Plan: complicated by known baseline dementia admission head CT negative suspect worse due hypernatremia + infection/sepsis follow mentation (6) Rhabdomyolysis: Code(s): M62.82 - Rhabdomyolysis Status: Acute Assessment and Plan: CK level elevated on admission slow improvement noted follow trend (7) Type 2 diabetes mellitus: Code(s): E11.9 - Type 2 diabetes mellitus without complications Status: Chronic Assessment and Plan: follow accu-cheks 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 Subjective Date/time seen: 12/24/23 12:31 Interval history: Follow-up for acute kidney injury/acute renal failure and hypernatremia. No real significant change noted; per my disussion with Dr. Bah yesterday afternoon, family was initially considering G-tube placement but then changed their minds and are now moving towards comfort/palliative care + hospice; no other issues/events noted at the time of my visit. Exam Narrative: General: ill appearing male in NAD Heart: normal S1 and S2; no rub Lungs: clear to auscultation Abdomen: soft, nontender, nondistended, positive bowel sounds Extremities: no cyanosis or clubbing; trace edema in LUE Skin: warm and dry Objective Data Vital Signs Vital Signs: Vital Signs Temp Pulse Resp BP Pulse Ox 12/24/23 12:00 97.9 F 95 16 163/79 H 100 12/23/23 22:00 98.5 F 93 17 151/90 H 96 Intake/Output Intake/Output: Intake & Output 12/21/23 12/22/23 12/23/23 12/24/23 23:59 23:59 23:59 23:59 Intake Total 2320 7638 256 9256 Output Total 1550 3450 1350 900 Balance 770 2030 -1044 440 Meds/Results Medications: Active Medications Generic Name Dose Route Start Last Admin Trade Name Freq PRN Reason Stop
[2023-12-24 14:00] VITALS: BP 163/79; PULSE 95; RESP 16; TEMP 36.6; O2SAT 100
[2023-12-24] MEDS: DEXTROSE 5% 1,000 ML 1,000 ML 60 ML IV CONT ×2 (16:36→23:25)
[2023-12-24 16:50] LABS: Glucose Point of Care 121 mg/dl (65-105)
--- NOTE | 2023-12-24 17:49 | PC.NURSE ---
At the [address] [facility] notified me that despite following all swallowing guidelines the patient choked on a bit of food. He was able to clear is and Sae RUIZ was in the room to assist Shraddha at the time. Patient had cleared the obstruction and Dr Lynn was notified of the event. Shane ordered patient to go on an NPO diet at this time.
[2023-12-24 20:35] LABS: Glucose Point of Care 116 mg/dl (65-105)
[2023-12-24] MEDS: SODIUM CHLORIDE 0.9% INJ 10 ML (21:16)
[2023-12-24] MEDS: APIXABAN 5 MG TABLET PO (21:19)
[2023-12-24 21:43] VITALS: BP 157/118; PULSE 78; RESP 18; TEMP 36.9; O2SAT 100
[2023-12-25 06:00] VITALS: BP 159/100; PULSE 85; RESP 18; TEMP 36.8; O2SAT 100
[2023-12-25 07:43] LABS: Glucose Point of Care 114 mg/dl (65-105)
[2023-12-25] MEDS: ASPIRIN 81 MG CHEWABLE TABLET BY MOUTH (09:25)
[2023-12-25] MEDS: levoFLOXacin 500 MG TABLET PO (09:25)
[2023-12-25] MEDS: ROSUVASTATIN 10 MG TABLET PO (09:25)
[2023-12-25] MEDS: APIXABAN 5 MG TABLET PO (09:25)
[2023-12-25] MEDS: PANTOPRAZOLE SODIUM IV 40 MG VIAL IV PUSH (09:26)
[2023-12-25 11:35] LABS: Glucose Point of Care 109 mg/dl (65-105)
--- NOTE | 2023-12-25 13:02 | PM.DS ---
DS: Admitting Diagnosis Discharge Date 12/25/2023 Admitting Diagnosis Altered mental status. DS: Discharge Diagnosis Discharge Diagnosis (1) Deep venous thrombosis: Code(s): I82.409 - Acute embolism and thrombosis of unspecified deep veins of unspecified lower extremity Status: Acute Assessment and Plan: Transition from iv heparin to oral eliquis pt benefits from hospice care for decline and failure to thrive daughter agrees (2) Hypernatremia: Code(s): E87.0 - Hyperosmolality and hypernatremia Status: Acute Assessment and Plan: Patient presented with altered mental status and found to have severe hypernatremia likely secondary to dehydration and decreased p.o. intake Daughter refusing PEG tube Will be talking to hospice team soon Pt will benefit from hospice care and pleasure feeds due to decline and failure to thrive (3) Sepsis: Code(s): A41.9 - Sepsis, unspecified organism Status: Acute Assessment and Plan: Shock secondary to sepsis and significant dehydration. Sepsis secondary to UTI and bacteremia. Meropenem changed to Rocephin Treated with Rocephin and now changed to Levaquin to complete a course pt benefits from hospice care for decline and failure to thrive daughter agrees (4) Shock: Code(s): R57.9 - Shock, unspecified Status: Acute Assessment and Plan: BP stable on pt benefits from hospice care for decline and failure to thrive daughter agrees (5) Acute kidney injury: Code(s): N17.9 - Acute kidney failure, unspecified Status: Acute Assessment and Plan: Last year, patient with Cr 1.2-1.4 range. Cr 4.9 on admission. RENATE likely secondary to dehydration, ATN, rhabdomyolysis, meds (ibuprofen, ACEI) CT abdomen pelvis was negative for any stone or obstruction. Ultrasound was unremarkable Holding ibuprofen and lisinopril Nephrology following Cr better today at 2.7 pt benefits from hospice care for decline and failure to thrive daughter agrees (6) Urinary tract infection: Code(s): N39.0 - Urinary tract infection, site not specified Status: Acute Assessment and Plan: As above (7) Fecal impaction: Code(s): K56.41 - Fecal impaction Status: Acute Assessment and Plan: CT scan showing likely fecal impaction. Patient was having bowel movements after initiation of laxatives through NG tube and suppository Had lower abd pain but having liquid stool and KUB showing no fecal impaction. Fecal impaction resolved. pt benefits from hospice care for decline and failure to thrive daughter agrees (8) Encephalopathy: Code(s): G93.40 - Encephalopathy, unspecified Status: Acute Assessment and Plan: Patient brought to ED due to altered mental status. He does have baseline dementia but appeared worse Head CT was negative. Altered mental changes due to toxic metabolic encephalopathy from sepsis, septic shock and electrolyte disturbance His mental status worsened 3/3 felt related to ?dystonic reaction. Reglan stopped pt benefits from hospice care for decline and failure to thrive daughter agrees (9) Type 2 diabetes mellitus: Code(s): E11.9 - Type 2 diabetes mellitus without complications Status: Chronic Assessment and Plan: Patient was hypoglycemic at one point requiring treatment. The patient's blood glucose was reviewed on 3/5 Glucose lower due to poor oral intake and off D5 Continue AccuCheks covering with sliding scale. Hypoglycemia protocol available as needed. pt benefits from hospice care for decline and failure to thrive daughter agrees (10) Rhabdomyolysis: Code(s): M62.82 - Rhabdomyolysis Status: Acute Assessment and Plan: CK level elevated to 5300. He was on IV fluids. Levels trended down. Crestor was held but now resumed Repeat TCK since being back on Crestor pt benefits from ho
[2023-12-25 14:00] VITALS: BP 135/83; PULSE 73; RESP 18; TEMP 36.3; O2SAT 100
--- NOTE | 2023-12-25 14:44 | PC.NURSE ---
report called to Brianne at [facility]. zack in place, iv out, all belongings packed up. daughter notified of transfer. ems here to [employer].
[2023-12-25 20:42] LABS: Platelet Ab,Indirect (IgA) NEGATIVE (NEGATIVE); Platelet Ab,Indirect (IgG) NEGATIVE (NEGATIVE); Platelet Ab,Indirect (IgM) NEGATIVE (NEGATIVE)
== END 2023-12-25 14:55 | disposition hospice, home (50) | DRG 871 ==
LOC: ANHED 14:50 → ANHICU 17:56 → ANHIMU 12-20 16:52 → ANH3MEDSUR 12-21 16:29
PROVIDERS: Internal Medicine; Internal Medicine Nephrology; Physician Assistant; Admitting Provider General Practice; Emergency Provider Emergency Medicine; PCP Internal Medicine; Visit Provider Family Medicine
DX: A41.51 Sepsis due to Escherichia coli [E. coli] (principal); G93.41 Metabolic encephalopathy; R65.21 Severe sepsis with septic shock; N17.0 Acute kidney failure with tubular necrosis; E87.0 Hyperosmolality and hypernatremia; N39.0 Urinary tract infection, site not specified; M62.82 Rhabdomyolysis; I82.622 Acute embolism and thrombosis of deep veins of left upper extremity; I82.612 Acute embolism and thrombosis of superficial veins of left upper extremity; I11.0 Hypertensive heart disease with heart failure; I50.9 Heart failure, unspecified; D69.6 Thrombocytopenia, unspecified; D64.9 Anemia, unspecified; E11.9 Type 2 diabetes mellitus without complications; E86.0 Dehydration; E78.5 Hyperlipidemia, unspecified; F03.90 Unspecified dementia, unspecified severity, without behavioral disturbance, psychotic disturbance, mood disturbance, and anxiety; F41.8 Other specified anxiety disorders; I25.2 Old myocardial infarction; I95.9 Hypotension, unspecified; K56.41 Fecal impaction; Z66 Do not resuscitate; Z79.82 Long term (current) use of aspirin; Z79.84 Long term (current) use of oral hypoglycemic drugs; Z86.718 Personal history of other venous thrombosis and embolism; Z86.73 Personal history of transient ischemic attack (TIA), and cerebral infarction without residual deficits; Z87.891 Personal history of nicotine dependence
CPT/HCPCS: 36415; 70450; 71250; 74019; 74176; 76775; 80048; 80053; 80069; 81001; 81050; 82274; 82550; 82565; 82570; 82607; 82728; 82746; 82948; 83036; 83540; 83550; 83605; 83690; 83735; 83874; 83880; 83930; 84100; 84156; 84295; 84300; 84443; 84466; 84484; 84540; 85025; 85027; 85046; 85055; 85610; 85730; 85999; 86022; 86706; 87040; 87077; 87086; 87186; 87340; 87637; 92610; 92611; 93005; 93306; 93971; 96361; 96374; 99285; A9270; C1751; C9113; J0692; J0696; J1170; J1644; J1650; J1815; J1940; J2185; J2765; J3010; J3370; J7030; J7040; J7042; J7060; J7070; J7120; P9047